=== PATIENT | male | born 1945 | race Caucasian/White ===

== ENCOUNTER 2017-05-05 21:53 | Inpatient (IN) ==
--- NOTE | 2017-05-05 22:23 | Emergency Department Note ---
Disposition Clinical Impression: Elevated troponin, Frequent falls Disposition: Admitted As Inpatient Condition: Undetermined Forms: ED Satisfaction Letter Time of Disposition: 00:02 General Adult HPI - General Chief complaint: ED Fall Stated complaint: Multiple falls Time Seen by Provider: 05/05/17 22:03 Source: patient Mode of arrival: wheelchair Limitations: no limitations Nursing Notes Reviewed: Yes Vital Signs Reviewed: Yes - History of Present Illness HPI Narrative: 72-year-old male with history of psychiatric disorder arrives [facility] emergency department complaining of frequent falls. The patient states that he has had frequent falls over the past 2 weeks. The patient states that he had a fall roughly 5 days ago and struck his face on the ground with a large amount of bruising in his right periorbital region. The patient states that ever since that fall he has felt a little shaky in bed and falling more more frequently. The patient denies any specific complaints other than the facial pain and more frequent falls. The patient denies any chest pain, difficulty breathing, abdominal pain. He denies any LOC with any of these episodes. He denies any other complaints including blacking out, chest pain associated with this. The patient denies tripping or slipping but states that he had no prodromal symptoms associated with it and did not black out. Pain Scale: 0 Consistency: intermittent Improves with: nothing Worsens with: nothing Associated symptoms: Reports: denies other symptoms - Related Data Allergies Allergy/AdvReac Type Severity Reaction Status Date / Time No Known Allergies Allergy Verified 05/05/17 22:00 All systems ED: reviewed and negative except as stated. Constitutional: Denies: fever, chills, weakness, weight change Cardiovascular: Denies: chest pain, palpitations, dyspnea on exertion, edema, syncope Respiratory: Denies: cough, dyspnea, wheezes, hemoptysis, stridor Gastrointestinal: Denies: abdominal pain, nausea, vomiting, diarrhea, constipation, hematemesis, melena, hematochezia Genitourinary: Denies: urgency, dysuria, frequency, hematuria Musculoskeletal: Denies: back pain, neck pain, arthralgia, myalgia Integumentary: Denies: rash, abrasion, lesions Neurological: Reports: other (falls and tremor). Denies: headache, weakness, numbness, paresthesias, confusion, abnormal gait, vertigo Past Medical History - Past Medical History Attestation: Yes The following information was validated with the patient. Source: patient Medical history: Reports: no medical history Surgical history: Reports: non-contributory - Social History Smoking Status: Current every day smoker Smokeless Tobacco Status: No Alcohol use: Reports: none Drug use: Reports: none Physical Exam - General Limitations: no limitations General appearance: alert, in no apparent distress - Eye Eye exam: Present: PERRL, EOMI, periorbital swelling (With associated ecchymosis on the right periorbital region.) - Neck Neck exam: Present: normal inspection, full ROM, trachea midline - Chest Chest inspection: Present: normal inspection, symmetric chest wall rise - Respiratory Respiratory exam: Present: normal lung sounds bilaterally - Cardiovascular Cardiovascular exam: Present: regular rate, normal rhythm, normal heart sounds - Abdominal Exam Abdominal exam: Present: soft, Non-Tender. Absent: tenderness, distention, guarding, rebound, rigidity - Extremities Exam Extremities exam: Present: normal inspection, full ROM. Absent: tenderness, pedal edema - Neurological Exam Neurological exam: Present: alert, oriented X3 - Skin Skin exam: Present: other (small abrasion superior to right brow) Course Vital Signs Temperature 99.8 F H 05/05/17 21:55 Pulse Rate 104 05/05/17 21:55 Respiratory Rate 18 05/05/17 21:55 Blood Pressure 184/96 05/05/17 21:55 O2 Sat by Pulse Oximetry 94 05/05/17 21:55 Temperature 99.8 F H 05/05/17 21:55 Pulse Rate 91 05/05/17 23:19 Respiratory Rate 18 05/05/17 23:19 Blood Pressure 152/89 05/05/17 23:19 O2 Sat by Pulse Oximetry 94 05/05/17 23:19 Oxygen Delivery Oxygen Delivery Room Air Medical Decision Making - MDM Narrative Medical decision making narrative: Patient's workup here in the emergency department demonstrates no acute findings other than an elevated troponin. We have no previous troponin on record. Given the patient's inability to ambulate and unsteadiness on his feet do not feel comfortable sending the patient home at this time. We will admit the patient to the hospital. Accepted by Dr. Bell. - Lab Data Lab results reviewed: Yes I reviewed the patient's lab results. Result diagrams: 05/05/17 22:30 05/05/17 22:30 Lab Results 05/05/17 05/05/17 05/05/17 Range/Units 22:30 22:30 22:30 WBC 6.4 (4.3-11.1) K/mcL RBC 4.98 (4.19-5.50) M/mcL Hgb 15.3 (12.9-16.9) g/dL Hct 47.8 (37.5-50.1) % MCV 96.0 (83.0-100.0) fL MCH 30.7 (28.0-33.3) pg MCHC 32.0 (31.6-35.5) g/dL RDW 13.4 (11.5-14.5) % Plt Count 114 L (140-400) K/mcL MPV 11.8 (9.4-12.4) fL Immature Gran % 0.8 (0-4) % Seg Neutrophils % 63.8 % Lymphocytes % 15.3 % Monocytes % 18.9 % Eosinophils % 0.6 % Basophils % 0.6 % Neutrophils # 4.1 (1.6-8.9) K/mcL Lymphocytes # 1.0 (0.6-4.6) K/mcL Monocytes # 1.2 (0.0-1.3) K/mcL Eosinophils # 0.0 (0.0-0.6) K/mcL Basophils # 0.0 (0.0-0.2) K/mcL Platelet Estimate Slight Decrease L (Normal) Sodium 138 (136-145) mEq/L Potassium 4.9 H (3.5-4.5) mEq/L Chloride 102 (98-109) mEq/L Carbon Dioxide 31 H (19-29) mEq/L BUN 21 (8-26) mg/dL Creatinine 1.07 (0.72-1.25) mg/dL Est GFR ( Amer) > 60 (> 60) Est GFR (Non-Af Amer) > 60 (> 60) BUN/Creatinine Ratio 20 (6-26) Glucose 94 (70-99) mg/dL Calculated Osmolality 289 (280-300) Lactic Acid (0.5-2.2) mmol/L Calcium 9.9 (8.6-10.8) mg/dL Total Bilirubin 0.4 (0.2-1.2) mg/dL AST 20 (5-34) Units/L ALT 7 (0-55) Units/L Alkaline Phosphatase 55 (38-126) Units/L Troponin I 0.04 H* (0-0.03) ng/mL Serum Total Protein 7.7 (6.0-8.3) g/dL Albumin 3.7 (3.5-5.0) g/dL Globulin 4.0 H (2.4-3.5) g/dL Albumin/Globulin Ratio 0.9 L (1.1-2.2) Urine Color (Yellow) Urine Clarity (Clear) Urine pH (5.0-8.0) pH Units Ur Specific [place] (1.010-1.025) Urine Protein (Neg-Trace) mg/dL Urine Glucose (UA) (Normal) mg/dL Urine Ketones (Negative) mg/dL Urine Blood (Negative) Urine Nitrite (Negative) Urine Bilirubin (Negative) Urine Urobilinogen (Normal) mg/dL Ur Leukocyte Esterase (Negative) Ur Culture Indicated? (NO) 05/05/17 05/05/17 Range/Units 22:30 22:50 WBC (4.3-11.1) K/mcL RBC (4.19-5.50) M/mcL Hgb (12.9-16.9) g/dL Hct (37.5-50.1) % MCV (83.0-100.0) fL MCH (28.0-33.3) pg MCHC (31.6-35.5) g/dL RDW (11.5-14.5) % Plt Count (140-400) K/mcL MPV (9.4-12.4) fL Immature Gran % (0-4) % Seg Neutrophils % % Lymphocytes % % Monocytes % % Eosinophils % % Basophils % % Neutrophils # (1.6-8.9) K/mcL Lymphocytes # (0.6-4.6) K/mcL Monocytes # (0.0-1.3) K/mcL Eosinophils # (0.0-0.6) K/mcL Basophils # (0.0-0.2) K/mcL Platelet Estimate (Normal) Sodium (136-145) mEq/L Potassium (3.5-4.5) mEq/L Chloride (98-109) mEq/L Carbon Dioxide (19-29) mEq/L BUN (8-26) mg/dL Creatinine (0.72-1.25) mg/dL Est GFR ( Amer) (> 60) Est GFR (Non-Af Amer) (> 60) BUN/Creatinine Ratio (6-26) Glucose (70-99) mg/dL Calculated Osmolality (280-300) Lactic Acid 1.6 (0.5-2.2) mmol/L Calcium (8.6-10.8) mg/dL Total Bilirubin (0.2-1.2) mg/dL AST (5-34) Units/L ALT (0-55) Units/L Alkaline Phosphatase (38-126) Units/L Troponin I (0-0.03) ng/mL Serum Total Protein (6.0-8.3) g/dL Albumin (3.5-5.0) g/dL Globulin (2.4-3.5) g/dL Albumin/Globulin Ratio (1.1-2.2) Urine Color Yellow (Yellow) Urine Clarity Clear (Clear) Urine pH 7.0 (5.0-8.0) pH Units Ur Specific [place] 1.022 (1.010-1.025) Urine Protein Negative (Neg-Trace) mg/dL Urine Glucose (UA) Normal (Normal) mg/dL Urine Ketones 15 H (Negative) mg/dL Urine Blood Negative (Negative) Urine Nitrite Negative (Negative) Urine Bilirubin Negative (Negative) Urine Urobilinogen Normal (Normal) mg/dL Ur Leukocyte Esterase Negative (Negative) Ur Culture Indicated? NO (NO) - Radiology Data Radiology results reviewed: Yes I reviewed the patient's radiology results. - EKG Data EKG #1 EKG attestation: Yes I reviewed and interpreted this EKG. EKG results narrative: Heart rate 99 bpm. PA interval 139 ms. QTC 372 ms. Normal axis. Normal sinus rhythm. No ST elevation or ST depression noted. No previous EKG.
--- NOTE | 2017-05-05 22:25 | Emergency Department Note ---
START Narrative - START START: I examined this patient and my medical decision-making was reviewed with the INVESTMENT FUND MANAGER/PA/Advanced Practice Nurse/Resident Physician. I agree with the documented findings, disposition and treatment plan as described except to the extent set forth below. ED attending note: Patient seen with emergency medicine resident Dr. Chino. Please see a copy of his note for details of the H&P, evaluation, management and disposition of this patient. We independently had [id number] contact with the patient Briefly: A 72-year-old male brought in wheelchair with the usp director for frequent falls. This is new behavior for patient. He is on medication for behavioral mental health issues. Seems to be some rhythmic shaking. No known history of parkinsonism. No loss of consciousness. He did fall and strike the top of his head and face sustaining sustaining abrasion and soft tissue swelling on his right periorbital and supraorbital ridge. Patient is at baseline mental status. ED workup is underway. Disposition pending.
[2017-05-05 22:35] LABS: Basophils % 0.6 %; Eosinophils % 0.6 %; Hematocrit 47.8 % (37.5-50.1); Hemoglobin 15.3 g/dL (12.9-16.9); Immature Granulocytes % 0.8 % (0-4); Lymphocytes % 15.3 %; Mean Corpuscular Hemoglobin 30.7 pg (28.0-33.3); Mean Platelet Volume 11.8 fL (9.4-12.4); Monocytes # 1.2 K/mcL (0.0-1.3); Monocytes % 18.9 %; Neutrophils # 4.1 K/mcL (1.6-8.9); Platelet Count 114 K/mcL (140-400); Red Blood Count 4.98 M/mcL (4.19-5.50); Red Cell Distribution Width 13.4 % (11.5-14.5); Segmented Neutrophils % 63.8 %
[2017-05-05 22:49] LABS: Alanine Aminotransferase 7 Units/L (0-55); Albumin 3.7 g/dL (3.5-5.0); Albumin/Globulin Ratio 0.9 (1.1-2.2); Alkaline Phosphatase 55 Units/L (38-126); Aspartate Amino Transferase 20 Units/L (5-34); BUN/Creatinine Ratio 20 (6-26); Bilirubin,Total 0.4 mg/dL (0.2-1.2); Blood Urea Nitrogen 21 mg/dL (8-26); Calcium 9.9 mg/dL (8.6-10.8); Carbon Dioxide 31 mEq/L (19-29); Chloride 102 mEq/L (98-109); Glucose 94 mg/dL (70-99); Osmolality,Calculated 289 (280-300); Potassium 4.9 mEq/L (3.5-4.5); Sodium 138 mEq/L (136-145); Total Protein 7.7 g/dL (6.0-8.3); eGFR For African Americans > 60 (> 60); eGFR For Non-African Americans > 60 (> 60)
[2017-05-05 22:59] LABS: Bilirubin,Urine Negative (Negative); Blood,Urine Negative (Negative); Clarity,Urine Clear (Clear); Color,Urine Yellow (Yellow); Glucose,Urine (UA) Normal (Normal); Ketones,Urine 15 mg/dL (Negative); Leukocyte Esterase,Urine Negative (Negative); Nitrite,Urine Negative (Negative); Protein,Urine Negative (Neg-Trace); Specific Gravity,Urine 1.022 (1.010-1.025); Urobilinogen,Urine Normal (Normal)
[2017-05-05 23:29] LABS: Platelet Estimate Slight Decrease (Normal)
[2017-05-06] MEDS ORDERED: Aspirin 325 MG TABLET PO ONE
[2017-05-06] MEDS ORDERED: Ipratropium/Albuterol Neb 3 ML IH ONE (01:10)
--- NOTE | 2017-05-06 01:45 | Internal Med History&Physical ---
Date of Encounter: 05/06/17 Time of Encounter: 01:42 Assessment and Plan (1) Tremors of nervous system Current visit: Yes Status: Acute Suspect Parkinson's disease / parkinsonism (pt has psychiatric hx, but list of medications not available at this time). We will request neurology consultation for further evaluation and advice (2) Elevated troponin Current visit: Yes Status: Acute Patient denies chest pain. No obvious EKG changes. We will trend troponins. Will request echocardiogram. Consider cardiac consultation. (3) Frequent falls Current visit: Yes Status: Acute CT head, UA and CXR negative. I suspect untreated parkinson's disease/ parkinsonism is possible cause. Will request neurologic consultation and physical therapy evaluation (4) COPD (chronic obstructive pulmonary disease) Current visit: Yes Status: Chronic Treat with Bronchodilators Qualifiers: COPD type: unspecified COPD Qualified Code(s): J44.9 - Chronic obstructive pulmonary disease, unspecified (5) Nicotine dependence Current visit: Yes Status: Chronic He does not want to quit. Offer nicotine patch Qualifiers: Nicotine product type: cigarettes Substance use status: unspecified nicotine-induced disorder Qualified Code(s): F17.219 - Nicotine dependence, cigarettes, with unspecified nicotine-induced disorders (6) DVT prophylaxis Current visit: Yes Status: Acute [facility] Internal Medicine - H&P: HPI Chief complaint: Unable to walk Admitted From: Emergency Dept Plans for Post Hospital Care: Home History of present illness: Mr. Alejandra is a 72 year old male, Who is a resident of a residential for about 2.5 years, current smoker. He reports that he is unable to walk well for a few months and is getting worse. He reports difficulty with balance while walking. He apparently had frequent falls over the past 2 weeks, last fall about 2 days ago and had injury to the right eye. Psychiatrist at the residential apparently recommended evaluation in the hospital. Pt evaluated in the ER and was noted to have troponin of 0.04. He is admitted to the hospitalist service for further management. He denies chest pain, shortness of breath, cough, expectoration, fever, chills, nausea, vomiting, abdominal pain, dysuria, hematuria, changes in bowel habits. H /O Urinary incontinence. H/o shaking for the some time. He denies headache, weakness of the limbs. Past Med Surg Social Fam HX - Past Medical History Medical history: no medical history Psychiatric history: anxiety, depression - Past Surgical History Surgical History: non-contributory - Social History Smoking Status: Current every day smoker Smokeless Tobacco Status: No Alcohol use: none Drug use: none - Additional Family History Additional family history: Family history reviewed and noncontributory to current admission Internal Medicine - H&P: Meds Allergies No Known Allergies Allergy (Verified 05/05/17 22:00) All Systems PM: A 10-system review of systems was performed and is negative for pertinent findings except as documented above in the HPI. - Constitutional Vitals: Temp Pulse Resp BP Pulse Ox 99.1 F 88 18 155/88 93 05/06/17 00:48 05/06/17 00:48 05/06/17 00:48 05/06/17 00:48 05/06/17 00:48 Exam: General: Not in acute distress at the time of my evaluation HEENT: Oral mucosa is moist. Right periorbital hematoma. Neck: No obvious neck swellings Lungs: Bilateral wheeze present Cardiac: Regular rate and rhythm. No significant murmurs Abdomen: Soft, non tender. Bowel sounds present Genitourinary: No ornelas catheter Neurological: Alert and oriented. Resting tremors present; bradykinesia present. No localizing weakness Psych: Not aggressive or agitated Extremities: no significant leg edema Skin: No generalized rash Internal Med - H&P Results - Labs CBC & Chem 7: 05/05/17 22:30 05/05/17 22:30 Labs: Urinalysis is negative for urinary tract infection - EKG Data -: EKG Interpreted by Myself EKG shows normal: sinus rhythm Rate: normal - Impressions ITS Impressions Chest X-Ray 05/05/17 22:17 IMPRESSION: Negative portable study. D/ / Perla Tamayo Cha, MD / Perla Tamayo Cha, MD Interpreting Provider: Perla Tamayo Cha, MD Head CT 05/05/17 22:17 IMPRESSION: No acute intracranial hemorrhage or mass effect. D/ / Nelson Patten MD / Nelson Patten MD Interpreting Provider: Nelson Patten MD Face CT 05/05/17 22:18 IMPRESSION: No acute traumatic injury of the facial bones. D/ / Perla Tamayo Cha, MD / Perla Tamayo Cha, MD Interpreting Provider: Perla Tamayo Cha, MD
[2017-05-06] MEDS ORDERED: Naloxone 0.4 MG/ML INJ IVP PRN (02:23)
[2017-05-06] MEDS ORDERED: Ipratropium/Albuterol Neb 3 ML IH PRN (02:26)
[2017-05-06] MEDS: *HR* Enoxaparin 40 MG/0.4 ML SYRINGE SQ SCH (06:20)
[2017-05-06 06:39] LABS: BUN/Creatinine Ratio 22 (6-26); Blood Urea Nitrogen 23 mg/dL (8-26); Calcium 8.8 mg/dL (8.6-10.8); Carbon Dioxide 23 mEq/L (19-29); Chloride 107 mEq/L (98-109); Chol/HDL Ratio 4.4 (0-4.9); Cholesterol 195 mg/dL (< 200); Glucose 115 mg/dL (70-99); HDL Cholesterol 44 mg/dL (40-59); LDL Cholesterol,Calculated 126 mg/dL (0-99); Magnesium 1.8 mg/dL (1.6-2.6); Osmolality,Calculated 291 (280-300); Potassium 4.2 mEq/L (3.5-4.5); Sodium 138 mEq/L (136-145); Triglycerides 124 mg/dL (< 150); eGFR For African Americans > 60 (> 60); eGFR For Non-African Americans > 60 (> 60)
[2017-05-06 06:52] LABS: Thyroid Stimulating Hormone 0.877 mcIU/mL (0.350-4.840)
[2017-05-06] MEDS: Divalproex (12 HR) 500 MG TABLET PO SCH ×2 (09:01→22:02)
[2017-05-06] MEDS: Gabapentin 100 MG CAPSULE PO SCH ×3 (09:02→22:02)
--- NOTE | 2017-05-06 12:17 | Event Note ---
Date of Encounter: 05/06/17 Time of Encounter: 09:30 Patient seen and examined. On examination, patient sitting upright in bed watching television. Patient stating he has had chest pain but is unable to quantify or localize the pain. He thinks that it has been present for months. He is a remarkably poor historian. Chest x-ray negative. Head CT negative. Face CT negative. Troponins adynamic and stable, low suspicion for ACS. Urinalysis negative. [place] levels normal. Neurology on board, appreciate their recommendations. PT has recommended ECF placement. Echocardiogram unremarkable with ejection fraction of 60-65%. During my interaction with him, patient was able to answer most questions but it is unclear at this time whether the patient has capacity to make decisions based upon his medical care. We will speak further with his fpc workers. According to staff report , patient has had balance issues and has started to walk while bent over forward for the past several months. He has refused to seek medical care. He is also refused ECF placement in the past, we will discuss further with the patient his options although we could potentially be heading towards possibly appointing a guardian- more conversations and evaluations to partake. ITS Impressions Chest X-Ray 05/05/17 22:17 IMPRESSION: Negative portable study. D/ / Perla Tamayo Cha, MD / Perla Tamayo Cha, MD Interpreting Provider: Perla Tamayo Cha, MD Head CT 05/05/17 22:17 IMPRESSION: No acute intracranial hemorrhage or mass effect. D/ / Nelson Patten MD / Nelson Patten MD Interpreting Provider: Nelson Patten MD Face CT 05/05/17 22:18 IMPRESSION: No acute traumatic injury of the facial bones. D/ / Perla Tamayo Cha, MD / Perla Tamayo Cha, MD Interpreting Provider: Perla Tamayo Cha, MD Echocardiogram impressions: Technically suboptimal due to poor echocardiographic windows. Incomplete study. Patient refused to complete the exam. LVEF 60-65%. Normal chamber size, wall thickness and function in the views obtained. Diastolic function was not assessed. Right ventricle was not well assessed. Unable to estimate RVSP due to lack of TR jet. No obvious significant valve dysfunction in the views obtained.
--- NOTE | 2017-05-06 13:15 | Neurology - Consult Note ---
Date of Encounter: 05/06/17 Time of Encounter: 13:07 Assessment and Plan (1) Frequent falls Current Visit: Yes Status: Acute This is a 72 year old male, who has been experiencing subacute onset of generalized weakness and frequent falls. Patient is a poor historian and it could be likely that the weakness been going on more than one week. Patient looks emaciated with a picture of failure to thrive. Weakness is quite diffuse and associated with complaints of pain. Mood appears significantly depressed. Neurologically, i found no typical features of Parkinson's disease, in particular there is no rest tremors, no muscle rigidity. Patient is mentally slow to react so movements are somewhat slow. There is no evidence of motor neuron disease since there is no brisk DTRs, no muscle fasciculations, no tongue atrophy or diffuse muscle atrophy. He is not myelopathic. At the same time he has his DTRs preserved therefore no signs of Guillain barre or CIDP. Overall speaking, picture of weakness appears to be peripheral, diffuse, may be complicated by failure to thrive and less likely muscular abnormality such as myositis, myopathy, or Lambert-Eaton syndrome considering weight loss and failure to thrive. There is also psychiatric inertia involve. Recommendation would be to: 1. Check CK, LDH and ESR to make sure there is no evidence of myositis, polymyalgia reumatica. 2. psychiatry evaluation may be beneficial. 3. Supportive/social placement care are apparently needed. History of Present Illness Chief complaint: falls HPI: Mr. Alejandra is a 72 year old male with PMH significant for COPD, depression who was transferred from a skilled nursing due to complaints of frequent falls. Patient is a poor historian and appears indifferent regarding his medical condition. He tells me that he developed weakness about one week ago without any specific provoking factors. He feels that he is weak everywhere and he also has diffuse sore muscle everywhere. Denies difficulty swallowing, choking. Does eat that much at skilled nursing. He apparently had a fall and hit his face with 'racoon eye' to the right side. Denies loss of consciousness with the fall. When asked how he fell, answer is 'do not know' CT of head shows no acute intracranial abnormality. Laboratory studies, CBC, metabolic panel showed no significant abnormality that can explain his symptoms. Past Med Surg Social Fam HX - Past Medical History Medical history: no medical history Psychiatric history: anxiety, depression - Past Surgical History Surgical History: non-contributory - Social History Smoking Status: Current every day smoker Smokeless Tobacco Status: No Alcohol use: none Drug use: none Medications and Allergies Albuterol Inhaler 05/06/17 [History] Benztropine Mesylate 0.5 mg PO QAM 05/06/17 [History] Benztropine Mesylate [Benztropine Mesylate] 1 mg PO HS 05/06/17 [History] Divalproex (24 HR) [Depakote ER (24 HR)] 500 mg PO BID 05/06/17 [History] Gabapentin [Neurontin] 200 mg PO TID 05/06/17 [History] Levothyroxine [Synthroid] 100 mcg PO DAILY 05/06/17 [History] [place] Carbonate [[place] Carbonate] 600 mg PO HS 05/06/17 [History] Allergies nicotine patches Allergy (Uncoded 05/06/17 03:04) Rash All Systems: A 10-system review of systems was performed and is negative for pertinent findings except as documented above in the HPI. Physical Examination - Vital Signs Vital Signs: Initial Vital Signs Temp Pulse Resp BP Pulse Ox 99.8 F H 104 18 184/96 94 05/05/17 21:55 05/05/17 21:55 05/05/17 21:55 05/05/17 21:55 05/05/17 21:55 - Constitutional General appearance: chronically ill - Neurologic Sensorimotor examination: other (Grossly intact) Detailed motor examination: grossly full strength in all extremities (Patient displays some giveaway weakness diffusely. Hand emergency crew supervisor appears equal and at least 4+/5. Able to lift legs off the bed and strenght 4=/5 bilaterally. No focal musle atrophy. No muscle fasciculations) Motor examination - right side: 4/5: deltoids, biceps, triceps, wrist flexion, wrist extension, electrical systems designer, hip flexors, tibialis Anterior, quadriceps, toe extension (EHL), plantarflexion Motor examination - left side: 4/5: deltoids, biceps, triceps, wrist flexion, wrist extension, hip flexors, electrical systems designer, quadriceps, tibialis Anterior, toe extension (EHL), plantarflexion Detailed sensory examination: other (Grossly intact) Reflexes: Biceps: 2+, Triceps: 2+, Brachioradialis: 2+, Patella: 2+, Achilles: 2 + Mental Status Examination: awake (Patient is indifferent but able to give simple answers. ), alert, oriented to person, oriented to place, oriented to time, follows commands appropriately, answers questions appropriately, no agnosia, no aphasia, no aproxia Cranial nerve examination: PERRL, EOMI, visual mckeon intact, corneal reflexes brisk symmetrically, sensory to face intact, mastication intact, no facial asymmetry is present, no dysarthria, hearing is intact symmetrically, soft palate elevates bilaterally upon phonation, gag reflex intact, flexes SCM and trapezius muscles symmetrically with full power, tongue protrudes midline, no atrophy or facial fasiculations present Fundoscopic: papilledema: Bilateral Results - Laboratory Findings CBC and BMP: 05/05/17 22:30 05/06/17 05:31 Abnormal lab findings: Abnormal lab results Plt Count 114 K/mcL (140-400) L 05/05/17 22:30 Platelet Estimate Slight Decrease (Normal) L 05/05/17 22:30 Glucose 115 mg/dL (70-99) H 05/06/17 05:31 Troponin I 0.04 ng/mL (0-0.03) H* 05/06/17 10:16 Globulin 4.0 g/dL (2.4-3.5) H 05/05/17 22:30 Albumin/Globulin Ratio 0.9 (1.1-2.2) L 05/05/17 22:30 LDL Cholesterol, Calc 126 mg/dL (0-99) H 05/06/17 05:31 Urine Ketones 15 mg/dL (Negative) H 05/05/17 22:50 Consult Discharge Plan - Plan [facility]errals: [facility]Primary Care Provider[facility] -
[2017-05-06] MEDS ORDERED: *HR* HYDROcodone/Acet 5/325 mg TABLET PO PRN (14:11)
[2017-05-06] MEDS ORDERED: Ondansetron 4 MG/2 ML VIAL IVP PRN (14:12)
[2017-05-06 14:19] LABS: C-Reactive Protein 12 mg/L (Less than 5); Creatine Kinase 266 Units/L (30-200); Lactate Dehydrogenase 173 Units/L (159-327)
[2017-05-06] MEDS: Acetaminophen 325 MG TABLET PO PRN (14:24)
[2017-05-06] MEDS: 0.9 % Sodium Chloride 1,000 ML IVC SCH (16:39)
[2017-05-06] MEDS: Lithium Carbonate 300 MG CAPSULE PO SCH (22:02)
[2017-05-07] MEDS: 0.9 % Sodium Chloride 1,000 ML IVC SCH (05:42)
[2017-05-07] MEDS: *HR* Enoxaparin 40 MG/0.4 ML SYRINGE SQ SCH (05:43)
[2017-05-07] MEDS: Gabapentin 100 MG CAPSULE PO SCH ×3 (07:58→21:27)
[2017-05-07] MEDS: Divalproex (12 HR) 500 MG TABLET PO SCH ×2 (07:59→21:27)
[2017-05-07] MEDS ORDERED: Furosemide 40 MG/4 ML VIAL IVP STA (11:45)
--- NOTE | 2017-05-07 11:49 | Internal Med Progress Note ---
Date of Encounter: 05/07/17 Time of Encounter: 10:30 - Assessment and plan (1) Frequent falls Current Visit: Yes Status: Acute Assessment and plan: Unclear causation, likely multifactorial. Currently, patient has moderate respiratory distress. He also appears to have mental health history and while we do not completely no wit his baseline is, his nurse spoke to his caregiver at the alf today and the caregiver stated that the patient is typically able to handle intelligent conversations. It is unclear at this time whether the patient is mentally/physically unable to answer questions and communicate or if he is choosing not to do so, we will continue to investigate. Chest x- ray negative. Head CT negative. Face CT negative for acute processes. Urinalysis negative. ABGs are pending. Troponins adynamic and stable, low suspicion for ACS. [place] levels normal. Neurology on board, suspect patient has failure to thrive. PT has recommended ECF placement-we will address this with the patient once he is more stable. Echocardiogram unremarkable with ejection fraction of 60-65%. During my interaction with him, patient was again able to answer most questions but at other times, his speech was garbled and unintelligible. Will address respiratory distress and conitnue to monitor his mentation. According to alf staff report, patient has had balance issues and has started to walk while bent over forward for the past several months. He has refused to seek medical care and psychiatry is onboard for possible capacity issues but we will need to clear up acute medical issues before addressing his capacity. He has also refused ECF placement in the past, we will discuss further with the patient his options although we could potentially be heading towards possibly appointing a guardian- more conversations and evaluations to partake. ITS Impressions Chest X-Ray 05/05/17 22:17 IMPRESSION: Negative portable study. D/ / Perla Tamayo Cha, MD / Perla Tamayo Cha, MD Interpreting Provider: Perla Tamayo Cha, MD Head CT 05/05/17 22:17 IMPRESSION: No acute intracranial hemorrhage or mass effect. D/ / Nelson Patten MD / Nelson Patten MD Interpreting Provider: Nelson Patten MD Face CT 05/05/17 22:18 IMPRESSION: No acute traumatic injury of the facial bones. D/ / Perla Tamayo Cha, MD / Perla Tamayo Cha, MD Interpreting Provider: Perla Tamayo Cha, MD Echocardiogram impressions: Technically suboptimal due to poor echocardiographic windows. Incomplete study. Patient refused to complete the exam. LVEF 60-65%. Normal chamber size, wall thickness and function in the views obtained. Diastolic function was not assessed. Right ventricle was not well assessed. Unable to estimate RVSP due to lack of TR jet. No obvious significant valve dysfunction in the views obtained. (2) Acute encephalopathy Current Visit: Yes Status: Suspected Assessment and plan: Suspected although unsure on the etiology. Patient clearly has moderate respiratory distress at this time. He is able to answer most questions and other answers are garbled and unintelligible. It is unclear whether or not the patient is experiencing confusion or if he is choosing not to answer questions as he prefers not to interact with healthcare according to his alf workers. See prior note for frequent falls (3) Acute respiratory failure Current Visit: Yes Status: Acute Assessment and plan: Patient was on nasal cannula this morning he remained dyspneic on examination, we will trial BiPAP. IV fluids have been stopped and the patient was given a one-time dose of IV Lasix. No history of heart failure although he did appear fluid overloaded on examination with coarse wheezing throughout and audible wheezing present. We will monitor closely. ABGs pending. Of note, when I examined him yesterday, he has mild audible wheezing consistent with upper airway congestion as his lungs were clear. His nurse also stated that this am around 7am that he was not nearly as dyspneic as well. Will check abg's- consider more imaging for possible aspiration? Patient does have a moist, wet, unproductive cough. (4) Discharge planning issues Current Visit: Yes Status: Acute Assessment and plan: Patient is a member of a alf. Per report, he has had so many falls recently, it does not sit appear as if the alf will be willing to take him back unless he goes to rehabilitation first. At this point, I am unable to determine whether the patient has the capacity to make that decision based upon his healthcare. Patient is not currently stable to be discharged, will readdress this issue once the patient is more stable. (5) Hypertension Current Visit: Yes Status: Acute Assessment and plan: Hypertension is not listed in the patient's history and he is not on any antihypertensive medications at home. Blood pressure uncontrolled, will initiate amlodipine with lopressor prn IV (6) Elevated troponin Current Visit: Yes Status: Acute Assessment and plan: adynamic and stable; low suspicion for ACS, but will recheck another level today (7) Tremors of nervous system Current Visit: Yes Status: Chronic Assessment and plan: Unclear causation. Neurology was on board and have suggested possible failure to thrive with Parkinson's and other movement disorders less likely. Psychiatry also on board. (8) COPD (chronic obstructive pulmonary disease) Current Visit: Yes Status: Chronic Assessment and plan: Currently is experiencing moderate respiratory distress, we will treat for possible fluid overload and COPD exacerbation. Qualifiers: COPD type: unspecified COPD Qualified Code(s): J44.9 - Chronic obstructive pulmonary disease, unspecified (9) Nicotine dependence Current Visit: Yes Status: Chronic Assessment and plan: Patient declines counseling, declines nicotine patch at this time Qualifiers: Nicotine product type: cigarettes Substance use status: unspecified nicotine-induced disorder Qualified Code(s): F17.219 - Nicotine dependence, cigarettes, with unspecified nicotine-induced disorders (10) DVT prophylaxis Current Visit: Yes Status: Acute Assessment and plan: Subcutaneous Lovenox - Subjective Interval history: Patient seen and examined. On examination, patient sitting in high Campbell's. Patient is alert and interactive though his speech is unintelligible at times. He has increased work of breathing today when compared from yesterday yet when asked, he denies shortness of breath above his norm. He also denies pain at this time but again is difficult to understand his answers to questions. - Constitutional Vitals: Temp Pulse Resp BP Pulse Ox 99.2 F 89 14 161/95 92 05/07/17 11:18 05/07/17 11:18 05/07/17 11:18 05/07/17 11:18 05/07/17 11:18 General appearance: Present: disheveled, A&O X 2, severe distress (moderate), answers questions appropriately (sometimes- but sometimes unintelligible) - Head Head exam: Present: atraumatic, normocephalic - Eye Eye exam: Present: PERRL, conjuntiva pink, sclera anicteric Pupils: Present: PERRL - Neck Neck exam general surgery: Present: supple, trachea midline. Absent: lymphadenopathy - Respiratory Respiratory exam: Present: accessory muscle use, decreased breath sounds, prolonged expiratory phase, rales, respiratory distress, wheezes, tachypnea. Absent: CTAB, rhonchi - Cardiovascular Cardiovascular exam: Present: RRR, +S1, +S2. Absent: diastolic murmur, gallop, rubs, systolic murmur - GI/Abdominal GI/Abdominal exam: Present: distended, normal bowel sounds, soft, no peritoneal signs. Absent: tenderness - Extremities Exam Extremities exam: Present: warm, radial pulses palpable and symetrical. Absent : calf tenderness, cyanotic, pedal edema - Neurological Exam Neurological exam: Present: alert, altered, CN II-XII intact, no focal deficits , strengths equal and symetr throughout, speech deficit. Absent: pronater drift , facial droop - Expanded Neurological Exam Neurological exam expanded: Present: protecting the airway Patient oriented to: Present: person, place. Absent: time Speech: Present: garbled Cranial Nerves: EOM's intact PM: Normal Neuro motor strength exam: LUE: 5, RUE: 5, LLE: 5, RLE: 5 Coma Scale Eye Opening: Spontaneous Coma Scale Motor Response: Obeys Commands Coma Scale Verbal Response: Confused (unintelligible at times but answers some questions easily) Coma Scale Total: 14 - Skin Skin exam: Present: dry, intact, pallor, warm Internal Medicine: Result - Labs CBC & Chem 7: 05/05/17 22:30 05/06/17 05:31 Consult Discharge Plan - Plan [facility]: [facility] [Primary Care Provider] -
[2017-05-07] MEDS ORDERED: *HR* Metoprolol 5 MG/5 ML VIAL IVP PRN (11:56)
--- NOTE | 2017-05-07 12:08 | Consult Note ---
Date of Encounter: 05/07/17 Time of Encounter: 11:40 Assessment & Recommendation (1) Delirium Current visit: Yes Status: Acute Assessment & Recommendation: Unsure of what patient's underlying psychiatric issues are based on medications. Would recommend obtaining records [facility] to gather more data previous psychiatric diagnoses. We will continue to monitor this patient and try to determine if there is a psychiatric component to his recent mental status change. Would continue psych meds the same for now. Labs reviewed and lithium levels within normal limits. History of Present Illness Patient: new to practice Requesting Physician: Iza Newton Reason for consult: confusion History of present illness: Mr. Alejandra is a 72 year old male who presented from the [facility] with increasing confusion and falls. He has been admitted to the medical floor for evaluation and treatment. Patient has apparently been falling more recently and health has been declining over the past few months. Patient has been difficult to understand and having difficulty communicating with staff secondary to shortness of breath and some intermittent confusion. Patient was able to verbalize that he is not [facility] but was unable to talk to this provider about why he is here or what he is medical issues were. He is on multiple psychiatric medications but was unable to verbalize what diagnosis he has. He does not appear to be responding to internal stimuli and he was having some difficulty breathing when I arrived to do the assessment. Patient is his own decision maker. Staff did contact Cornell Perez who is his caregiver at the [facility] ([phone]). Per caregiver, patient is normally able to make his own decisions and is very alert and oriented. This current state appears to be an acute change in his mental status. CC: Iza Newton Past Med Surg Social Fam HX - Past Medical History Medical history: no medical history - Past Psychiatric History Past psychiatric history details: Unknown at this time. We will obtain records from [facility]. Family psychiatric history: Unknown - Past Surgical History Surgical History: non-contributory - Social History Smoking Status: Current every day smoker Smokeless Tobacco Status: No Alcohol use: none Drug use: none Current living situation: [facility] Activity Level: Independent ambulation Medications & Allergies Albuterol Sulfate [Proair Hfa] 1 - 2 puff IH Q6H PRN 05/06/17 [History] Benztropine Mesylate 0.5 mg PO QAM 05/06/17 [History] Benztropine Mesylate [Benztropine Mesylate] 1 mg PO HS 05/06/17 [History] Divalproex (24 HR) [Depakote ER (24 HR)] 500 mg PO BID 05/06/17 [History] Gabapentin [Neurontin] 200 mg PO TID 05/06/17 [History] Levothyroxine [Synthroid] 100 mcg PO DAILY 05/06/17 [History] [place] Carbonate [[place] Carbonate] 600 mg PO HS 05/06/17 [History] Tiotropium [Spiriva] 18 mcg IH DAILY 05/06/17 [History] Allergies nicotine patches Allergy (Uncoded 05/06/17 03:04) Rash Review of Systems ROS limited: due to patient condition Respiratory: Reports: dyspnea, wheezes Mental Status Exam Patient orientation: Yes Person, No Time, Yes Place, No Circumstance Level of alertness: Alert Patient appearance: Unkempt Behavior: cooperative, distractible Psychomotor activity: Normal Eye contact: Fleeting Contact Mood description: Euthymic/stable Affect description: anxious Speech pattern: Limited Speech volume: Soft/Quiet Thought process: [place] Thought content: No Suicidal ideation, No Homicidal ideation Perceptual disturbances: No Reacting to internal stimuli Attention span: Unable to Focus Patient reliability: Not Reliable Historian Intelligence estimate: Below Average Judgment: Limited Insight: Minimal Results - Vital Signs Vital signs: Temp Pulse Resp BP Pulse Ox 99.2 F 89 14 161/95 92 05/07/17 11:18 05/07/17 11:18 05/07/17 11:18 05/07/17 11:18 05/07/17 11:18 - Labs Labs: Laboratory Last Values WBC 6.4 K/mcL (4.3-11.1) 05/05/17 22:30 RBC 4.98 M/mcL (4.19-5.50) 05/05/17 22:30 Hgb 15.3 g/dL (12.9-16.9) 05/05/17 22:30 Hct 47.8 % (37.5-50.1) 05/05/17 22:30 MCV 96.0 fL (83.0-100.0) 05/05/17 22:30 MCH 30.7 pg (28.0-33.3) 05/05/17 22:30 MCHC 32.0 g/dL (31.6-35.5) 05/05/17 22:30 RDW 13.4 % (11.5-14.5) 05/05/17 22:30 Plt Count 114 K/mcL (140-400) L 05/05/17 22:30 MPV 11.8 fL (9.4-12.4) 05/05/17 22:30 Immature Gran % 0.8 % (0-4) 05/05/17 22:30 Seg Neutrophils % 63.8 % 05/05/17 22:30 Lymphocytes % 15.3 % 05/05/17 22:30 Monocytes % 18.9 % 05/05/17 22:30 Eosinophils % 0.6 % 05/05/17 22: Basophils % 0.6 % 05/05/17 22:30 Neutrophils # 4.1 K/mcL (1.6-8.9) 05/05/17 22:30 Lymphocytes # 1.0 K/mcL (0.6-4.6) 05/05/17 22:30 Monocytes # 1.2 K/mcL (0.0-1.3) 05/05/17 22:30 Eosinophils # 0.0 K/mcL (0.0-0.6) 05/05/17 22:30 Basophils # 0.0 K/mcL (0.0-0.2) 05/05/17 22:30 Platelet Estimate Slight Decrease (Normal) L 05/05/17 22:30 ESR 40 mm/hr (0-10) H 05/06/17 13:32 Sodium 138 mEq/L (136-145) 05/06/17 05:31 Potassium 4.2 mEq/L (3.5-4.5) 05/06/17 05:31 Chloride 107 mEq/L (98-109) 05/06/17 05:31 Carbon Dioxide 23 mEq/L (19-29) 05/06/17 05:31 BUN 23 mg/dL (8-26) 05/06/17 05:31 Creatinine 1.05 mg/dL (0.72-1.25) 05/06/17 05:31 Est GFR ( Amer) > 60 (> 60) 05/06/17 05:31 Est GFR (Non-Af Amer) > 60 (> 60) 05/06/17 05:31 BUN/Creatinine Ratio 22 (6-26) 05/06/17 05:31 Glucose 115 mg/dL (70-99) H 05/06/17 05:31 Calculated Osmolality 291 (280-300) 05/06/17 05:31 Lactic Acid 1.6 mmol/L (0.5-2.2) 05/05/17 22:30 Calcium 8.8 mg/dL (8.6-10.8) 05/06/17 05:31 Magnesium 1.8 mg/dL (1.6-2.6) 05/06/17 05:31 Total Bilirubin 0.4 mg/dL (0.2-1.2) 05/05/17 22:30 AST 20 Units/L (5-34) 05/05/17 22:30 ALT 7 Units/L (0-55) 05/05/17 22:30 Alkaline Phosphatase 55 Units/L (38-126) 05/05/17 22:30 Lactate Dehydrogenase 173 Units/L (159-327) 05/06/17 13:32 Creatine Kinase 266 Units/L (30-200) H 05/06/17 13:32 Troponin I 0.04 ng/mL (0-0.03) H* 05/06/17 10:16 C-Reactive Protein 12 mg/L (Less than 5) H 05/06/17 13:32 Serum Total Protein 7.7 g/dL (6.0-8.3) 05/05/17 22:30 Albumin 3.7 g/dL (3.5-5.0) 05/05/17 22:30 Globulin 4.0 g/dL (2.4-3.5) H 05/05/17 22:30 Albumin/Globulin Ratio 0.9 (1.1-2.2) L 05/05/17 22:30 Triglycerides 124 mg/dL (< 150) 05/06/17 05:31 Cholesterol 195 mg/dL (< 200) 05/06/17 05:31 LDL Cholesterol, Calc 126 mg/dL (0-99) H 05/06/17 05:31 VLDL Cholesterol, Calc 25 mg/dL (< 31) 05/06/17 05:31 HDL Cholesterol 44 mg/dL (40-59) 05/06/17 05:31 Cholesterol/HDL Ratio 4.4 (0-4.9) 05/06/17 05:31 TSH 0.877 mcIU/mL (0.350-4.840) 05/06/17 05:31 Urine Color Yellow (Yellow) 05/05/17 22:50 Urine Clarity Clear (Clear) 05/05/17 22:50 Urine pH 7.0 pH Units (5.0-8.0) 05/05/17 22:50 Ur Specific [place] 1.022 (1.010-1.025) 05/05/17 22:50 Urine Protein Negative mg/dL (Neg-Trace) 05/05/17 22:50 Urine Glucose (UA) Normal mg/dL (Normal) 05/05/17 22:50 Urine Ketones 15 mg/dL (Negative) H 05/05/17 22:50 Urine Blood Negative (Negative) 05/05/17 22:50 Urine Nitrite Negative (Negative) 05/05/17 22:50 Urine Bilirubin Negative (Negative) 05/05/17 22:50 Urine Urobilinogen Normal mg/dL (Normal) 05/05/17 22:50 Ur Leukocyte Esterase Negative (Negative) 05/05/17 22:50 Ur Culture Indicated? NO (NO) 05/05/17 22:50 [place] 0.6 mEq/L (0.6-1.2) 05/06/17 05:31 Consult Discharge Plan - Plan [facility]errals: [facility] [Primary Care Provider] -
[2017-05-07] MEDS: Ipratropium/Albuterol Neb 3 ML IH SCH ×4 (12:25→23:56)
[2017-05-07 12:33] LABS: ABG Base Excess 1.9 mEq/L (-2.0 to 3.0); ABG HCO3 26.6 mEQ/L (21-27); ABG Oxygen Saturation 96 % (95-98); ABG PCO2 41 mmHg (35-45); ABG PH 7.42 pH Units (7.32-7.45); ABG PO2 79 mmHg (85-104); ABG TCO2 27.9 mEq/L (20-26)
[2017-05-07 12:34] LABS: Blood Gas FiO2 28 %
[2017-05-07] MEDS: amLODIPine 5 MG TABLET PO SCH (13:15)
[2017-05-07] MEDS ORDERED: Vancomycin 1,250 MG in D5% in Water 250 ML IVPB SCH ×2 (16:00)
--- NOTE | 2017-05-07 16:09 | Event Note ---
Date of Encounter: 05/07/17 Time of Encounter: 15:45 Patient seen and reexamined. On reexamination, pt is sitting in high Campbell's and tolerating BiPap well. His work of breathing and upper airway congestion is much improved. He just developed a fever of unknown etiology although I suspect possible aspiration pneumonia given that he has had copious amounts of nonproductive phlegm. Tylenol for fever, blood cultures ordered and the patient started on Vanc and Zosyn. Chest CT ordered. His ABG's are unremarkable. Regarding his mentation, he can still answer simple yes or no questions, but his speech is soft and unintelligible on longer answers. It does appear as if the patient is lucid and oriented- will give him a pen and clipboard and will continue to monitor his mentation. Will check lactic acid levels though he does not appear to be septic at this time. HR in the 70s ad BP is stable/slightly hypertensive.
[2017-05-07] MEDS: Acetaminophen 325 MG TABLET PO PRN (16:21)
[2017-05-07 16:43] LABS: BUN/Creatinine Ratio 21 (6-26); Blood Urea Nitrogen 19 mg/dL (8-26); eGFR For African Americans > 60 (> 60); eGFR For Non-African Americans > 60 (> 60)
[2017-05-07] MEDS: Piperacillin/Tazobactam 3.375 GM in D5% in Water (Mini-Bag+) 100 ML IVPB SCH ×2 (16:45→23:47)
[2017-05-07 18:08] LABS: ABG Base Excess 3.5 mEq/L (-2.0 to 3.0); ABG HCO3 27.8 mEQ/L (21-27); ABG Oxygen Saturation 97 % (95-98); ABG PCO2 40 mmHg (35-45); ABG PH 7.45 pH Units (7.32-7.45); ABG PO2 83 mmHg (85-104)
[2017-05-07 18:09] LABS: Blood Gas FiO2 32 %
--- NOTE | 2017-05-07 18:43 | Event Note ---
Date of Encounter: 05/08/17 Time of Encounter: 18:41 72/M senior care resident. Admitted for multiple falls. asked to see for new onset of respiratory distress. Alert oriented x3 on BiPAP Appears drowsy but awake, painful stimuli Noted that patient was initially tachypneic and then was placed on BiPAP. had crepitations in the right upper lobe on auscultation. Assessment: Possible aspiration Plan: CT scan of the chest stat We will start broad-spectrum IV antibiotics. Transferred to stepdown unit. I have informed in person to 19 regarding this patient. This note was generated on 05/07/2017 and due to some emergency I could not complete on the same day. This note was completed on 05/08/2017 This patient's primary provider LINEN KEEPER and she has date for her services. This note should not be billed.
[2017-05-07] MEDS: Lithium Carbonate 300 MG CAPSULE PO SCH (21:53)
[2017-05-08] MEDS: Ipratropium/Albuterol Neb 3 ML IH SCH ×5 (04:00→20:36)
[2017-05-08] MEDS: Vancomycin 1,250 MG in D5% in Water 250 ML IVPB SCH ×2 (04:07→15:10)
[2017-05-08 04:20] LABS: Immature Granulocytes % 0.5 % (0-4)
[2017-05-08 04:22] LABS: Basophils % 0.2 %; Hematocrit 44.1 % (37.5-50.1); Hemoglobin 14.5 g/dL (12.9-16.9); Immature Platelets 12.9 % (1.1-6.1); Lymphocytes # 1.2 K/mcL (0.6-4.6); Lymphocytes % 14.8 %; Mean Corpuscular HGB Conc 32.9 g/dL (31.6-35.5); Mean Corpuscular Hemoglobin 30.6 pg (28.0-33.3); Mean Platelet Volume 11.7 fL (9.4-12.4); Monocytes # 1.2 K/mcL (0.0-1.3); Monocytes % 15.1 %; Neutrophils # 5.7 K/mcL (1.6-8.9); Red Blood Count 4.74 M/mcL (4.19-5.50); Red Cell Distribution Width 13.6 % (11.5-14.5); Segmented Neutrophils % 69.4 %
[2017-05-08 04:40] LABS: BUN/Creatinine Ratio 25 (6-26); Blood Urea Nitrogen 20 mg/dL (8-26); Calcium 8.3 mg/dL (8.6-10.8); Carbon Dioxide 28 mEq/L (19-29); Chloride 99 mEq/L (98-109); Glucose 139 mg/dL (70-99); Osmolality,Calculated 283 (280-300); Potassium 3.7 mEq/L (3.5-4.5); Sodium 134 mEq/L (136-145); eGFR For African Americans > 60 (> 60); eGFR For Non-African Americans > 60 (> 60)
[2017-05-08 04:52] LABS: Platelet Count 85 K/mcL (140-400)
[2017-05-08 04:53] LABS: Platelet Clumps Few (Not Present); Platelet Estimate Marked Decrease (Normal)
[2017-05-08] MEDS: *HR* Enoxaparin 40 MG/0.4 ML SYRINGE SQ SCH (05:26)
[2017-05-08] MEDS: Gabapentin 100 MG CAPSULE PO SCH ×3 (08:36→19:50)
[2017-05-08] MEDS: Divalproex (12 HR) 500 MG TABLET PO SCH ×2 (08:36→19:50)
[2017-05-08] MEDS: Piperacillin/Tazobactam 3.375 GM in D5% in Water (Mini-Bag+) 100 ML IVPB SCH ×2 (08:37→16:16)
[2017-05-08] MEDS: amLODIPine 5 MG TABLET PO SCH (08:37)
--- NOTE | 2017-05-08 12:12 | Electrocardiograph Report ---
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
[2017-05-08] MEDS: Lithium Carbonate 300 MG CAPSULE PO SCH (19:50)
--- NOTE | 2017-05-08 19:59 | Internal Med Progress Note ---
Date of Encounter: 05/08/17 Time of Encounter: 10:00 - Assessment and plan (1) Aspiration pneumonia Current Visit: Yes Status: Acute Assessment and plan: We will treat him with vancomycin and Zosyn. Follow-up blood cultures and sputum culture. Speech and swallow evaluation to rule out silent aspiration. Qualifiers: Aspiration pneumonia type: unspecified Laterality: right Lung location: upper lobe of lung Qualified Code(s): J69.0 - Pneumonitis due to inhalation of food and vomit (2) Frequent falls Current Visit: Yes Status: Acute Assessment and plan: Full precautions. Discussed plan of care with his POA and the patient and POA both agree that the patient would benefit from subacute rehabilitation [facility] We will obtain PTOT evaluation. (3) COPD (chronic obstructive pulmonary disease) Current Visit: Yes Status: Chronic Assessment and plan: Inhaled bronchodilators. Qualifiers: COPD type: unspecified COPD Qualified Code(s): J44.9 - Chronic obstructive pulmonary disease, unspecified (4) Nicotine dependence Current Visit: Yes Status: Chronic Qualifiers: Nicotine product type: cigarettes Substance use status: unspecified nicotine-induced disorder Qualified Code(s): F17.219 - Nicotine dependence, cigarettes, with unspecified nicotine-induced disorders (5) DVT prophylaxis Current Visit: Yes Status: Acute Assessment and plan: Subcutaneous Lovenox (6) Acute respiratory failure Current Visit: Yes Status: Acute Qualifiers: Respiratory failure complication: hypoxia Qualified Code(s): J96.01 - Acute respiratory failure with hypoxia (7) Acute encephalopathy Current Visit: Yes Status: Acute (8) Discharge planning issues Current Visit: Yes Status: Acute - Subjective Interval history: Patient presented to the hospital with altered mental status. Yesterday found to be in respiratory distress, placed on BiPAP. There was concern for aspiration and therefore he was transferred to the ICU. - Constitutional Vitals: Temp Pulse Resp BP Pulse Ox 97.6 F 89 24 155/96 95 05/08/17 15:39 05/08/17 19:30 05/08/17 19:30 05/08/17 19:30 05/08/17 19:30 General appearance: Present: disheveled, A&O X 3, no acute distress, answers questions appropriately (sometimes- but sometimes unintelligible) - Respiratory Respiratory exam: Present: rales. Absent: accessory muscle use, rhonchi, wheezes - Cardiovascular Cardiovascular exam: Present: RRR, +S1, +S2. Absent: diastolic murmur, gallop, rubs, systolic murmur - GI/Abdominal GI/Abdominal exam: Present: normal bowel sounds, soft, no peritoneal signs. Absent: distended, tenderness - Extremities Exam Extremities exam: Present: warm, radial pulses palpable and symetrical. Absent : calf tenderness, cyanotic, pedal edema - Neurological Exam Neurological exam: Present: CN II-XII intact, oriented X3, no focal deficits. Absent: pronater drift, facial droop, speech deficit - Skin Skin exam: Present: dry, intact Internal Medicine: Result - Labs CBC & Chem 7: 05/08/17 04:13 05/08/17 04:13 Labs: Short CBC 05/08/17 Range/Units 04:13 WBC 8.2 (4.3-11.1) K/mcL Hgb 14.5 (12.9-16.9) g/dL Hct 44.1 (37.5-50.1) % Plt Count 85 L (140-400) K/mcL Neutrophils # 5.7 (1.6-8.9) K/mcL BMP 05/08/17 04:13 Sodium 134 L Potassium 3.7 Chloride 99 Carbon Dioxide 28 BUN 20 Creatinine 0.80 Glucose 139 H Calcium 8.3 L Cardiac Enzymes 05/08/17 Range/Units 04:13 Troponin I 0.02 (0-0.03) ng/mL - ABG Interpretation ABG results: ABG ABG pH 7.45 pH Units (7.32-7.45) 05/07/17 18:00 ABG pCO2 40 mmHg (35-45) 05/07/17 18:00 ABG pO2 83 mmHg (85-104) L 05/07/17 18:00 ABG O2 Saturation 97 % (95-98) 05/07/17 18:00 - Impressions CT of the chest reviewed by myself with patchy opacities in the right upper lobe. Consult Discharge Plan - Plan [facility]errals: [facility] [Primary Care Provider] -
[2017-05-09] MEDS: Ipratropium/Albuterol Neb 3 ML IH SCH ×6 (00:08→21:17)
[2017-05-09] MEDS: Piperacillin/Tazobactam 3.375 GM in D5% in Water (Mini-Bag+) 100 ML IVPB SCH ×4 (00:16→23:52)
[2017-05-09 03:09] LABS: Basophils % 0.2 %
[2017-05-09 03:11] LABS: Eosinophils % 0.5 %; Hematocrit 45.9 % (37.5-50.1); Hemoglobin 14.9 g/dL (12.9-16.9); Immature Granulocytes % 0.8 % (0-4); Immature Platelets 14.9 % (1.1-6.1); Lymphocytes # 1.1 K/mcL (0.6-4.6); Lymphocytes % 17.7 %; Mean Corpuscular HGB Conc 32.5 g/dL (31.6-35.5); Mean Corpuscular Volume 92.5 fL (83.0-100.0); Mean Platelet Volume 11.6 fL (9.4-12.4); Monocytes # 0.8 K/mcL (0.0-1.3); Neutrophils # 4.3 K/mcL (1.6-8.9); Red Blood Count 4.96 M/mcL (4.19-5.50); Red Cell Distribution Width 13.4 % (11.5-14.5); Segmented Neutrophils % 67.8 %
[2017-05-09 03:17] LABS: Platelet Count 90 K/mcL (140-400)
[2017-05-09 03:26] LABS: BUN/Creatinine Ratio 16 (6-26); Blood Urea Nitrogen 13 mg/dL (8-26); Calcium 8.9 mg/dL (8.6-10.8); Carbon Dioxide 30 mEq/L (19-29); Chloride 98 mEq/L (98-109); Glucose 110 mg/dL (70-99); Osmolality,Calculated 281 (280-300); Potassium 3.6 mEq/L (3.5-4.5); Sodium 135 mEq/L (136-145); eGFR For African Americans > 60 (> 60); eGFR For Non-African Americans > 60 (> 60)
[2017-05-09] MEDS: Vancomycin 1,500 MG in D5% in Water 250 ML IVPB SCH ×2 (04:49→15:39)
[2017-05-09] MEDS: *HR* Enoxaparin 40 MG/0.4 ML SYRINGE SQ SCH (04:50)
[2017-05-09] MEDS: Gabapentin 100 MG CAPSULE PO SCH ×3 (07:59→21:38)
[2017-05-09] MEDS: amLODIPine 5 MG TABLET PO SCH (07:59)
[2017-05-09] MEDS: Divalproex (12 HR) 500 MG TABLET PO SCH ×2 (07:59→21:39)
[2017-05-09 08:15] LABS: Amphetamine Screen,Urine Negative ng/mL (Cutoff=1000); Barbiturate Screen,Urine Positive ng/mL (Cutoff=200); Benzodiazepines Screen,Urine Negative ng/mL (Cutoff=200); Cannabinoid Screen,Urine Negative ng/mL (Cutoff = 50); Cocaine Screen,Urine Negative ng/mL (Cutoff= 300); Opiate Screen,Urine Negative ng/mL (Cutoff=300); Phencyclidine Screen,Urine Negative ng/mL (Cutoff=25)
[2017-05-09] MEDS ORDERED: methylPREDNISolone 125 MG/2 ML VIAL IVP ONE (10:32)
[2017-05-09] MEDS: Carbidopa/Levodopa 25/100 TABLET PO SCH ×3 (10:44→21:39)
--- NOTE | 2017-05-09 10:46 | Internal Med Progress Note ---
<Modesto Summers - Last Filed: 05/09/17 11:44> Date of Encounter: 05/09/17 Time of Encounter: 09:00 - Assessment and plan (1) Aspiration pneumonia Current Visit: Yes Status: Acute Assessment and plan: Continue vancomycin and Zosyn. Follow-up blood cultures negative thus far and sputum culture results pending. Encouraged incentive spirometry. Speech and swallow evaluation negative, consider swallow study to rule out silent aspiration. Qualifiers: Aspiration pneumonia type: unspecified Laterality: right Lung location: upper lobe of lung Qualified Code(s): J69.0 - Pneumonitis due to inhalation of food and vomit (2) COPD (chronic obstructive pulmonary disease) Current Visit: Yes Status: Acute Assessment and plan: Continue Inhaled bronchodilators. Continue vancomycin and Zosyn. Start Solu- Medrol 125 mg IV now then 60 mg IV every 8 hours. Wean supplemental oxygen as tolerated. Qualifiers: COPD type: COPD with acute exacerbation Qualified Code(s): J44.1 - Chronic obstructive pulmonary disease with (acute) exacerbation (3) Parkinson disease Current Visit: Yes Status: Acute Assessment and plan: Patient has cogwheel rigidity, shuffling gait, and generalized resting tremor. Continue Cogentin. Start low dose levodopa/ carbidopa and recommended outpatient follow-up with neurology (4) Nicotine dependence Current Visit: Yes Status: Chronic Assessment and plan: Discussed the importance of tobacco cessation. Patient declines need for further counseling, declines nicotine patch at this time Qualifiers: Nicotine product type: cigarettes Substance use status: unspecified nicotine-induced disorder Qualified Code(s): F17.219 - Nicotine dependence, cigarettes, with unspecified nicotine-induced disorders (5) Acute respiratory failure Current Visit: Yes Status: Acute Assessment and plan: Patient was on nasal cannula this morning he remained dyspneic on examination, we will trial BiPAP. IV fluids have been stopped and the patient was given a one-time dose of IV Lasix. No history of heart failure although he did appear fluid overloaded on examination with coarse wheezing throughout and audible wheezing present. We will monitor closely. ABGs pending. Of note, when I examined him yesterday, he has mild audible wheezing consistent with upper airway congestion as his lungs were clear. His nurse also stated that this am around 7am that he was not nearly as dyspneic as well. Will check abg's- consider more imaging for possible aspiration? Patient does have a moist, wet, unproductive cough. Qualifiers: Respiratory failure complication: hypoxia Qualified Code(s): J96.01 - Acute respiratory failure with hypoxia (6) Hypertension Current Visit: Yes Status: Acute Assessment and plan: Hypertension is not listed in the patient's history and he is not on any antihypertensive medications at home. Blood pressure better controlled since initiating amlodipine with lopressor prn IV Qualifiers: Hypertension type: essential hypertension Qualified Code(s): I10 - Essential (primary) hypertension (7) Acute encephalopathy Current Visit: Yes Status: Acute Assessment and plan: Resolved. Suspected although unsure on the etiology. (8) Seizure disorder Current Visit: No Status: Acute Assessment and plan: Continue home med Depakote (9) Frequent falls Current Visit: Yes Status: Acute Assessment and plan: Full precautions. Discussed plan of care with his POA and the patient and POA both agree that the patient would benefit from subacute rehabilitation prior to return to the detention. PTOT evaluation. (10) Discharge planning issues Current Visit: Yes Status: Acute (11) DVT prophylaxis Current Visit: Yes Status: Acute Assessment and plan: Subcutaneous Lovenox Patient seen and examined. Plan discussed with and agreed upon with Dr. Estrada - Subjective Interval history: Patient resting comfortably in bed. Patient reports cough, wheeze, and minimal shortness of breath. Patient denies fevers, chills, chest pain, or new complaints. Nursing is at bedside in reports patient is ambulating with assistance - Constitutional Vitals: Temp Pulse Resp BP Pulse Ox 97.6 F 81 20 132/83 92 05/09/17 10:07 05/09/17 10:07 05/09/17 10:07 05/09/17 10:07 05/09/17 10:07 General appearance: Present: disheveled, A&O X 3, no acute distress, answers questions appropriately (sometimes- but sometimes unintelligible) Exam: Elderly, resting tremor - Head Head exam: Present: atraumatic, normocephalic - Eye Eye exam: Present: PERRL, conjuntiva pink, sclera anicteric Pupils: Present: PERRL - Neck Neck exam general surgery: Present: supple, trachea midline. Absent: lymphadenopathy - Respiratory Respiratory exam: Present: wheezes. Absent: accessory muscle use, rales, rhonchi Additional comments: Diffuse wheezing bilaterally. Supplemental oxygen via nasal cannula - Cardiovascular Cardiovascular exam: Present: RRR, +S1, +S2. Absent: diastolic murmur, gallop, rubs, systolic murmur - GI/Abdominal GI/Abdominal exam: Present: normal bowel sounds, soft, no peritoneal signs. Absent: distended, tenderness - Extremities Exam Extremities exam: Present: warm, radial pulses palpable and symetrical. Absent : calf tenderness, cyanotic, pedal edema Additional comments: Cogwheel rigidity present on bilateral upper extremities - Neurological Exam Neurological exam: Present: abnormal gait. Absent: pronater drift, facial droop , speech deficit Additional comments: Generalized tremor with Joya rigidity and upper extremities. Shuffling gait during ambulation with nursing - Skin Skin exam: Present: dry, intact Internal Medicine: Result - Labs CBC & Chem 7: 05/09/17 02:53 05/09/17 02:53 Labs: Short CBC 05/09/17 Range/Units 02:53 WBC 6.3 (4.3-11.1) K/mcL Hgb 14.9 (12.9-16.9) g/dL Hct 45.9 (37.5-50.1) % Plt Count 90 L (140-400) K/mcL Neutrophils # 4.3 (1.6-8.9) K/mcL BMP 05/09/17 02:53 Sodium 135 L Potassium 3.6 Chloride 98 Carbon Dioxide 30 H BUN 13 Creatinine 0.82 Glucose 110 H Calcium 8.9 - ABG Interpretation ABG results: ABG ABG pH 7.45 pH Units (7.32-7.45) 05/07/17 18:00 ABG pCO2 40 mmHg (35-45) 05/07/17 18:00 ABG pO2 83 mmHg (85-104) L 05/07/17 18:00 ABG O2 Saturation 97 % (95-98) 05/07/17 18:00 Consult Discharge Plan - Plan [facility] Provider[facility] - <Singh Estrada - Last Filed: 05/09/17 16:33> Date of Encounter: 05/09/17 - Assessment and plan (1) Aspiration pneumonia Current Visit: Yes Status: Acute Qualifiers: Aspiration pneumonia type: unspecified Laterality: right Lung location: upper lobe of lung Qualified Code(s): J69.0 - Pneumonitis due to inhalation of food and vomit (2) Frequent falls Current Visit: Yes Status: Acute (3) COPD (chronic obstructive pulmonary disease) Current Visit: Yes Status: Acute Qualifiers: COPD type: COPD with acute exacerbation Qualified Code(s): J44.1 - Chronic obstructive pulmonary disease with (acute) exacerbation (4) Nicotine dependence Current Visit: Yes Status: Chronic Qualifiers: Nicotine product type: cigarettes Substance use status: unspecified nicotine-induced disorder Qualified Code(s): F17.219 - Nicotine dependence, cigarettes, with unspecified nicotine-induced disorders (5) DVT prophylaxis Current Visit: Yes Status: Acute (6) Acute respiratory failure Current Visit: Yes Status: Acute Qualifiers: Respiratory failure complication: hypoxia Qualified Code(s): J96.01 - Acute respiratory failure with hypoxia (7) Acute encephalopathy Current Visit: Yes Status: Acute (8) Discharge planning issues Current Visit: Yes Status: Acute - Constitutional Vitals: Temp Pulse Resp BP Pulse Ox 97.8 F 98 16 129/82 99 05/09/17 14:28 05/09/17 14:28 05/09/17 15:27 05/09/17 14:28 05/09/17 15:27 Internal Medicine: Result - Labs CBC & Chem 7: 05/09/17 02:53 05/09/17 02:53 Labs: Short CBC 05/09/17 Range/Units 02:53 WBC 6.3 (4.3-11.1) K/mcL Hgb 14.9 (12.9-16.9) g/dL Hct 45.9 (37.5-50.1) % Plt Count 90 L (140-400) K/mcL Neutrophils # 4.3 (1.6-8.9) K/mcL BMP 05/09/17 02:53 Sodium 135 L Potassium 3.6 Chloride 98 Carbon Dioxide 30 H BUN 13 Creatinine 0.82 Glucose 110 H Calcium 8.9 - ABG Interpretation ABG results: ABG ABG pH 7.45 pH Units (7.32-7.45) 05/07/17 18:00 ABG pCO2 40 mmHg (35-45) 05/07/17 18:00 ABG pO2 83 mmHg (85-104) L 05/07/17 18:00 ABG O2 Saturation 97 % (95-98) 05/07/17 18:00 - Attending Attestation I examined this patient and my medical decision-making was reviewed with the Resident Physician, Dr Summers. I agree with the documented findings, disposition and treatment plan as described except to the extent set forth below. Continue IV antibiotics for aspiration pneumonia. Follow-up blood cultures. We will start Sinemet for new diagnosis of Parkinson's disease. Urine toxicology report noted. Positive barbiturates I suspect is secondary to cross reactivity.
[2017-05-09] MEDS: methylPREDNISolone 60 MG in 0.9 % Sodium Chloride 50 ML IVPB SCH (17:15)
[2017-05-09] MEDS: Lithium Carbonate 300 MG CAPSULE PO SCH (21:39)
[2017-05-10] MEDS: Ipratropium/Albuterol Neb 3 ML IH SCH ×7 (00:13→23:41)
[2017-05-10] MEDS: *HR* OxyCODONE Immed Rel 5 MG TABLET PO PRN ×3 (01:47→15:53)
[2017-05-10] MEDS: methylPREDNISolone 60 MG in 0.9 % Sodium Chloride 50 ML IVPB SCH ×3 (01:48→17:20)
[2017-05-10 03:41] LABS: Basophils % 0.2 %; Hematocrit 46.1 % (37.5-50.1); Hemoglobin 14.9 g/dL (12.9-16.9); Immature Granulocytes % 0.7 % (0-4); Immature Platelets 16.9 % (1.1-6.1); Lymphocytes # 0.8 K/mcL (0.6-4.6); Lymphocytes % 18.7 %; Mean Corpuscular HGB Conc 32.3 g/dL (31.6-35.5); Mean Corpuscular Hemoglobin 30.2 pg (28.0-33.3); Mean Corpuscular Volume 93.3 fL (83.0-100.0); Mean Platelet Volume 12.1 fL (9.4-12.4); Monocytes # 0.4 K/mcL (0.0-1.3); Monocytes % 8.3 %; Platelet Count 104 K/mcL (140-400); Red Blood Count 4.94 M/mcL (4.19-5.50); Red Cell Distribution Width 13.2 % (11.5-14.5); Segmented Neutrophils % 72.1 %
[2017-05-10 03:55] LABS: Albumin 2.9 g/dL (3.5-5.0); Albumin/Globulin Ratio 0.7 (1.1-2.2); Alkaline Phosphatase 39 Units/L (38-126); Aspartate Amino Transferase 19 Units/L (5-34); BUN/Creatinine Ratio 21 (6-26); Bilirubin,Total 0.3 mg/dL (0.2-1.2); Blood Urea Nitrogen 20 mg/dL (8-26); Calcium 9.2 mg/dL (8.6-10.8); Carbon Dioxide 25 mEq/L (19-29); Chloride 100 mEq/L (98-109); Globulin 4.4 g/dL (2.4-3.5); Glucose 150 mg/dL (70-99); Osmolality,Calculated 285 (280-300); Potassium 4.2 mEq/L (3.5-4.5); Sodium 135 mEq/L (136-145); Total Protein 7.3 g/dL (6.0-8.3); eGFR For African Americans > 60 (> 60); eGFR For Non-African Americans > 60 (> 60)
[2017-05-10 03:56] LABS: Alanine Aminotransferase < 6 Units/L (0-55)
[2017-05-10 04:13] LABS: Large Platelets Present (Not Present); Platelet Estimate Decreased (Normal); Reactive Lymphocytes Present (Not Present)
[2017-05-10] MEDS: Vancomycin 1,500 MG in D5% in Water 250 ML IVPB SCH ×2 (04:23→15:47)
[2017-05-10] MEDS: *HR* Enoxaparin 40 MG/0.4 ML SYRINGE SQ SCH (06:05)
[2017-05-10] MEDS: Carbidopa/Levodopa 25/100 TABLET PO SCH ×3 (07:36→21:45)
[2017-05-10] MEDS: Piperacillin/Tazobactam 3.375 GM in D5% in Water (Mini-Bag+) 100 ML IVPB SCH ×2 (07:36→15:48)
[2017-05-10] MEDS: Gabapentin 100 MG CAPSULE PO SCH ×3 (07:37→21:45)
[2017-05-10] MEDS: Divalproex (12 HR) 500 MG TABLET PO SCH ×2 (07:37→21:45)
[2017-05-10] MEDS: amLODIPine 5 MG TABLET PO SCH (07:37)
[2017-05-10] MEDS ORDERED: Aminoglycoside Consult 1 EACH MC ONE (08:37)
--- NOTE | 2017-05-10 09:02 | Internal Med Progress Note ---
<Modesto Summers - Last Filed: 05/10/17 13:45> Date of Encounter: 05/10/17 Time of Encounter: 09:01 - Assessment and plan (1) Aspiration pneumonia Current Visit: Yes Status: Acute Assessment and plan: Continue vancomycin and Zosyn IV for aspiration pneumonia while awaiting culture results. Blood cultures negative thus far and sputum culture results pending. Encouraged incentive spirometry. Continue duonebs and steroids. Repeat chest x-ray today shows left basilar atelectasis Speech and swallow evaluation negative, consider swallow study to rule out silent aspiration. Qualifiers: Aspiration pneumonia type: unspecified Laterality: right Lung location: upper lobe of lung Qualified Code(s): J69.0 - Pneumonitis due to inhalation of food and vomit (2) COPD (chronic obstructive pulmonary disease) Current Visit: Yes Status: Acute Assessment and plan: Continue Inhaled bronchodilators. Continue vancomycin and Zosyn for aspiration pneumonia coverage. Continue Solu-Medrol 60 mg IV every 8 hours. Wean supplemental oxygen as tolerated. Qualifiers: COPD type: COPD with acute exacerbation Qualified Code(s): J44.1 - Chronic obstructive pulmonary disease with (acute) exacerbation (3) Parkinson disease Current Visit: Yes Status: Acute Assessment and plan: Patient has cogwheel rigidity, shuffling gait, and generalized resting tremor. Continue Cogentin and low dose levodopa/ carbidopa. Recommended outpatient follow-up with neurology. Urine toxicology report noted. Positive barbiturates I suspect is secondary to cross reactivity. (4) Nicotine dependence Current Visit: Yes Status: Chronic Assessment and plan: Discussed the importance of tobacco cessation. Patient declines need for further counseling, declines nicotine patch at this time Qualifiers: Nicotine product type: cigarettes Substance use status: unspecified nicotine-induced disorder Qualified Code(s): F17.219 - Nicotine dependence, cigarettes, with unspecified nicotine-induced disorders (5) Acute respiratory failure Current Visit: Yes Status: Acute Assessment and plan: Acute respiratory distress upon presentation. Continue nasal cannula and BiPAP as needed. Status post IV Lasix. Slightly improved coarse wheezing throughout. We will monitor closely. Patient does have a moist, wet, unproductive cough. Awaiting sputum culture results Qualifiers: Respiratory failure complication: hypoxia Qualified Code(s): J96.01 - Acute respiratory failure with hypoxia (6) Hypertension Current Visit: Yes Status: Acute Assessment and plan: Hypertension is not listed in the patient's history and he is not on any antihypertensive medications at home. Blood pressure better controlled since initiating amlodipine with lopressor prn IV Qualifiers: Hypertension type: essential hypertension Qualified Code(s): I10 - Essential (primary) hypertension (7) Acute encephalopathy Current Visit: Yes Status: Acute Assessment and plan: Resolved. Uncertain etiology. (8) Seizure disorder Current Visit: No Status: Acute Assessment and plan: Continue home Depakote (9) Frequent falls Current Visit: Yes Status: Acute Assessment and plan: Full precautions. Discussed plan of care with his POA and the patient and POA both agree that the patient would benefit from subacute rehabilitation prior to return to the detention. Continue PT/OT. (10) Discharge planning issues Current Visit: Yes Status: Acute Assessment and plan: Patient is a member of a detention. Per report, he has had so many falls recently, it does not sit appear as if the detention will be willing to take him back unless he goes to rehabilitation first. At this point, I am unable to determine whether the patient has the capacity to make that decision based upon his healthcare. (11) DVT prophylaxis Current Visit: Yes Status: Acute Assessment and plan: Continue Subcutaneous Lovenox. Encourage ambulation. Patient seen and examined. Plan discussed with and agreed upon with Dr. Estrada - Subjective Interval history: Patient resting comfortably in bed. Patient reports productive cough, wheeze, and shortness of breath. Patient denies fevers, chills, chest pain, or new complaints. Nursing is at bedside and reports patient is ambulating with assistance and using incentive spirometry as directed - Constitutional Vitals: Temp Pulse Resp BP Pulse Ox 98.1 F 69 18 131/68 92 05/10/17 06:27 05/10/17 06:27 05/10/17 08:05 05/10/17 06:27 05/10/17 08:05 General appearance: Present: disheveled, A&O X 3, no acute distress, answers questions appropriately Exam: Elderly, appears ill - Head Head exam: Present: normocephalic. Absent: atraumatic Additional comments: Ecchymosis right periorbital region - Eye Eye exam: Present: PERRL, conjuntiva pink, sclera anicteric Pupils: Present: PERRL Additional comments: Ecchymosis right periorbital region - Neck Neck exam general surgery: Present: supple, trachea midline. Absent: lymphadenopathy - Respiratory Respiratory exam: Present: wheezes. Absent: accessory muscle use, CTAB, rales, rhonchi Additional comments: Diffuse wheezes bilaterally, supplemental oxygen at 2 L - Cardiovascular Cardiovascular exam: Present: RRR, +S1, +S2. Absent: diastolic murmur, gallop, rubs, systolic murmur - GI/Abdominal GI/Abdominal exam: Present: normal bowel sounds, soft, no peritoneal signs. Absent: distended, tenderness - Extremities Exam Extremities exam: Present: warm, radial pulses palpable and symetrical. Absent : calf tenderness, cyanotic, pedal edema - Neurological Exam Neurological exam: Present: CN II-XII intact, oriented X3, no focal deficits. Absent: pronater drift, facial droop, speech deficit Additional comments: Generalized weakness, Cogwheel rigidity, body tremors, shuffling gait with ambulation per nursing - Psychiatric Psychiatric exam: Present: normal affect, normal mood Additional comments: Cooperative - Skin Skin exam: Present: dry, intact Additional comments: Ecchymosis right periorbital region Internal Medicine: Result - Labs CBC & Chem 7: 05/10/17 03:33 05/10/17 03:33 Labs: Short CBC 05/10/17 Range/Units 03:33 WBC 4.2 L (4.3-11.1) K/mcL Hgb 14.9 (12.9-16.9) g/dL Hct 46.1 (37.5-50.1) % Plt Count 104 L (140-400) K/mcL Neutrophils # 3.0 (1.6-8.9) K/mcL BMP 05/10/17 03:33 Sodium 135 L Potassium 4.2 Chloride 100 Carbon Dioxide 25 BUN 20 Creatinine 0.97 Glucose 150 H Calcium 9.2 Liver Function 05/10/17 Range/Units 03:33 Total Bilirubin 0.3 (0.2-1.2) mg/dL AST 19 (5-34) Units/L ALT < 6 (0-55) Units/L Alkaline Phosphatase 39 (38-126) Units/L Albumin 2.9 L (3.5-5.0) g/dL - ABG Interpretation ABG results: ABG ABG pH 7.45 pH Units (7.32-7.45) 05/07/17 18:00 ABG pCO2 40 mmHg (35-45) 05/07/17 18:00 ABG pO2 83 mmHg (85-104) L 05/07/17 18:00 ABG O2 Saturation 97 % (95-98) 05/07/17 18:00 - Pulse Oximetry Interpretation Digit-Finger Pulse Oximetry Readin O2 Sat by Pulse Oximetry: 92 Additional comments: The wean oxygen as tolerated - Diagnostic Studies Chest x-ray Status: image reviewed by me Additional comments: Impressions Chest X-Ray 05/10/17 10:06 IMPRESSION: Left basilar atelectasis. No acute cardiopulmonary process identified. D/ / Paresh Rodgers MD / Paresh Rodgers MD Interpreting Provider: Paresh Rodgers MD Consult Discharge Plan - Plan [facility]Primary Care Provider[facility] - <Singh Estrada - Last Filed: 05/10/17 17:44> Date of Encounter: 05/10/17 - Assessment and plan (1) Aspiration pneumonia Current Visit: Yes Status: Acute Qualifiers: Aspiration pneumonia type: unspecified Laterality: right Lung location: upper lobe of lung Qualified Code(s): J69.0 - Pneumonitis due to inhalation of food and vomit (2) Frequent falls Current Visit: Yes Status: Acute (3) COPD (chronic obstructive pulmonary disease) Current Visit: Yes Status: Acute Qualifiers: COPD type: COPD with acute exacerbation Qualified Code(s): J44.1 - Chronic obstructive pulmonary disease with (acute) exacerbation (4) Nicotine dependence Current Visit: Yes Status: Chronic Qualifiers: Nicotine product type: cigarettes Substance use status: unspecified nicotine-induced disorder Qualified Code(s): F17.219 - Nicotine dependence, cigarettes, with unspecified nicotine-induced disorders (5) DVT prophylaxis Current Visit: Yes Status: Acute (6) Acute respiratory failure Current Visit: Yes Status: Acute Qualifiers: Respiratory failure complication: hypoxia Qualified Code(s): J96.01 - Acute respiratory failure with hypoxia (7) Acute encephalopathy Current Visit: Yes Status: Acute (8) Discharge planning issues Current Visit: Yes Status: Acute - Constitutional Vitals: Temp Pulse Resp BP Pulse Ox 97.8 F 74 20 163/82 92 05/10/17 14:51 05/10/17 14:51 05/10/17 16:18 05/10/17 14:51 05/10/17 16:18 Internal Medicine: Result - Labs CBC & Chem 7: 05/10/17 03:33 05/10/17 03:33 Labs: Short CBC 05/10/17 Range/Units 03:33 WBC 4.2 L (4.3-11.1) K/mcL Hgb 14.9 (12.9-16.9) g/dL Hct 46.1 (37.5-50.1) % Plt Count 104 L (140-400) K/mcL Neutrophils # 3.0 (1.6-8.9) K/mcL BMP 05/10/17 03:33 Sodium 135 L Potassium 4.2 Chloride 100 Carbon Dioxide 25 BUN 20 Creatinine 0.97 Glucose 150 H Calcium 9.2 Liver Function 05/10/17 Range/Units 03:33 Total Bilirubin 0.3 (0.2-1.2) mg/dL AST 19 (5-34) Units/L ALT < 6 (0-55) Units/L Alkaline Phosphatase 39 (38-126) Units/L Albumin 2.9 L (3.5-5.0) g/dL - ABG Interpretation ABG results: ABG ABG pH 7.45 pH Units (7.32-7.45) 05/07/17 18:00 ABG pCO2 40 mmHg (35-45) 05/07/17 18:00 ABG pO2 83 mmHg (85-104) L 05/07/17 18:00 ABG O2 Saturation 97 % (95-98) 05/07/17 18:00 - Impressions Impressions Chest X-Ray 05/10/17 10:06 IMPRESSION: Left basilar atelectasis. No acute cardiopulmonary process identified. D/ / Paresh Rodgers MD / Paresh Rodgers MD Interpreting Provider: Paresh Rodgers MD - Attending Attestation I examined this patient and my medical decision-making was reviewed with the Resident Physician, Dr Summers. I agree with the documented findings, disposition and treatment plan as described except to the extent set forth below. patient's tremors and cogwheel rigidity have slightly improved from yesterday. Heart exam reveals regular S1 and S2 with no murmurs. Plan: Stop vancomycin. Continue with Zosyn. Follow-up blood cultures and sputum culture. PT OT. Continue with Sinemet. DVT prophylaxis with Lovenox.
--- NOTE | 2017-05-10 12:31 | Electrocardiograph Report ---
[place] [id number] Test Date: 2017-05-07 Pat Name: Rl Alejandra Department: 109 Room: 3A Gender: M Rv Detailer: CARLOS MANUEL : 1945 Requested By: Singh Estrada Order Number: [id number] Reading MD: Bijan Nicole MD Measurements Intervals [place] Rate: 70 P: 74 [place]: 152 QRS: 41 QRSD: 98 T: 42 QT: 382 QTc: 403 Interpretive Statements SINUS RHYTHM Poor R wave progression BASELINE ARTIFACT Electronically Signed On 05-10-2017 12:29:43 EDT by Bijan Nicole MD
[2017-05-10] MEDS: Lithium Carbonate 300 MG CAPSULE PO SCH (21:45)
[2017-05-10] MEDS: *HR* Acetylcysteine 20% 600 MG/3 ML ORAL SYRINGE PO SCH (21:52)
[2017-05-11] MEDS: Piperacillin/Tazobactam 3.375 GM in D5% in Water (Mini-Bag+) 100 ML IVPB SCH ×2 (00:44→10:06)
[2017-05-11] MEDS: methylPREDNISolone 60 MG in 0.9 % Sodium Chloride 50 ML IVPB SCH ×3 (03:00→18:52)
[2017-05-11] MEDS: Ipratropium/Albuterol Neb 3 ML IH SCH ×6 (04:01→22:47)
[2017-05-11 04:44] LABS: Basophils % 0.2 %; Hematocrit 45.4 % (37.5-50.1); Hemoglobin 14.8 g/dL (12.9-16.9); Immature Granulocytes % 0.7 % (0-4); Lymphocytes # 1.1 K/mcL (0.6-4.6); Lymphocytes % 11.2 %; Mean Corpuscular HGB Conc 32.6 g/dL (31.6-35.5); Mean Corpuscular Hemoglobin 30.6 pg (28.0-33.3); Mean Corpuscular Volume 93.8 fL (83.0-100.0); Mean Platelet Volume 12.1 fL (9.4-12.4); Monocytes # 0.8 K/mcL (0.0-1.3); Monocytes % 7.5 %; Neutrophils # 8.2 K/mcL (1.6-8.9); Platelet Count 124 K/mcL (140-400); Red Blood Count 4.84 M/mcL (4.19-5.50); Red Cell Distribution Width 13.2 % (11.5-14.5); Segmented Neutrophils % 80.4 %
[2017-05-11 05:08] LABS: Albumin 2.9 g/dL (3.5-5.0); Albumin/Globulin Ratio 0.7 (1.1-2.2); Alkaline Phosphatase 39 Units/L (38-126); Aspartate Amino Transferase 22 Units/L (5-34); BUN/Creatinine Ratio 23 (6-26); Bilirubin,Total 0.3 mg/dL (0.2-1.2); Blood Urea Nitrogen 23 mg/dL (8-26); Calcium 9.3 mg/dL (8.6-10.8); Carbon Dioxide 29 mEq/L (19-29); Chloride 98 mEq/L (98-109); Globulin 4.1 g/dL (2.4-3.5); Glucose 169 mg/dL (70-99); Osmolality,Calculated 292 (280-300); Potassium 3.8 mEq/L (3.5-4.5); Sodium 137 mEq/L (136-145); eGFR For African Americans > 60 (> 60); eGFR For Non-African Americans > 60 (> 60)
[2017-05-11 05:11] LABS: Alanine Aminotransferase < 6 Units/L (0-55)
[2017-05-11] MEDS: *HR* Enoxaparin 40 MG/0.4 ML SYRINGE SQ SCH (05:27)
[2017-05-11 05:33] LABS: Platelet Estimate Slight Decrease (Normal); Reactive Lymphocytes Present (Not Present)
--- NOTE | 2017-05-11 09:46 | Discharge Summary ---
<Modesto Summers - Last Filed: 05/11/17 18:15> Date of Encounter: 05/11/17 Time of Encounter: 09:46 - Discharge Diagnosis (1) Aspiration pneumonia Status: Acute Qualifiers: Aspiration pneumonia type: unspecified Laterality: right Lung location: upper lobe of lung Qualified Code(s): J69.0 - Pneumonitis due to inhalation of food and vomit (2) COPD (chronic obstructive pulmonary disease) Status: Acute Qualifiers: COPD type: COPD with acute exacerbation Qualified Code(s): J44.1 - Chronic obstructive pulmonary disease with (acute) exacerbation (3) Parkinson disease Status: Acute (4) Nicotine dependence Status: Chronic Qualifiers: Nicotine product type: cigarettes Substance use status: unspecified nicotine-induced disorder Qualified Code(s): F17.219 - Nicotine dependence, cigarettes, with unspecified nicotine-induced disorders (5) Acute respiratory failure Status: Acute Qualifiers: Respiratory failure complication: hypoxia Qualified Code(s): J96.01 - Acute respiratory failure with hypoxia (6) Hypertension Status: Acute Qualifiers: Hypertension type: essential hypertension Qualified Code(s): I10 - Essential (primary) hypertension (7) Acute encephalopathy Status: Acute (8) Seizure disorder Status: Acute (9) Frequent falls Status: Acute (10) Discharge planning issues Status: Acute (11) DVT prophylaxis Status: Acute - Discharge Medications Prescriptions: Amoxicillin/Clavulanate [Augmentin] 875 mg PO BIDWM 10 Days Ipratropium/Albuterol Neb [Duoneb] 3 ml IH Q4H PRN 30 Days PRN Reason: cough, congestion Nebulizer [Aeroeclipse] 1 each MC Q4H PRN 30 Days PRN Reason: cough, congestion Nebulizer Accessories [Pillow Mask] 1 each MC Q4H PRN 30 Days PRN Reason: cough, congestion PredniSONE [Deltasone] 40 mg PO DAILY 4 Days Home Medications: Albuterol Sulfate [Proair Hfa] 1 - 2 puff IH Q6H PRN 05/06/17 [History] Benztropine Mesylate 0.5 mg PO QAM 05/06/17 [History] Benztropine Mesylate 1 mg PO HS 05/06/17 [History] Divalproex (24 HR) [Depakote ER (24 HR)] 500 mg PO BID 05/06/17 [History] Gabapentin [Neurontin] 200 mg PO TID 05/06/17 [History] Levothyroxine [Synthroid] 100 mcg PO DAILY 05/06/17 [History] [place] Carbonate 600 mg PO HS 05/06/17 [History] Tiotropium [Spiriva] 18 mcg IH DAILY 05/06/17 [History] Acetaminophen [Tylenol] 650 mg PO Q6HR PRN #0 tablet 05/11/17 [Rx] Acetylcysteine 20% 600 mg PO BID syringe 05/11/17 [Rx] Amoxicillin/Clavulanate [Augmentin] 875 mg PO BIDWM 10 Days 05/11/17 [Rx] Carbidopa/Levodopa 25/100 [Sinemet 25/100] 1 each PO TID tablet 05/11/17 [Rx] HYDROcodone/Acet 5/325 mg [[place] 5-325 mg] 1 tab PO Q6HR PRN #0 tablet 05/11/17 [Rx] Ipratropium/Albuterol Neb [Duoneb] 3 ml IH Q4H PRN 30 Days 05/11/17 [Rx] Metoprolol [Lopressor] 5 mg IVP Q6HR PRN #0 vial 05/11/17 [Rx] Nebulizer Accessories [Pillow Mask] 1 each MC Q4H PRN 30 Days 05/11/17 [Rx] Nebulizer [Aeroeclipse] 1 each MC Q4H PRN 30 Days 05/11/17 [Rx] Ondansetron [Zofran] 4 mg IVP Q6HR PRN #0 vial 05/11/17 [Rx] OxyCODONE Immed Rel [Roxicodone 5 MG] 10 mg PO Q6HR PRN #0 tablet 05/11/17 [Rx] PredniSONE [Deltasone] 40 mg PO DAILY 4 Days 05/11/17 [Rx] amLODIPine [Norvasc] 5 mg PO DAILY tablet 05/11/17 [Rx] Allergies/Adverse Reactions: Allergies nicotine patches Allergy (Uncoded 05/06/17 03:04) Rash Date of admission: 05/06/17 02:23 [facility] care physician[facility] Consults: 05/06/17 02:26 Consult to Neurology [CONS] Routine Consulting Provider: [facility] Reason for Consult: Resting tremors; recurrent falls - suspected parkinson's disease Call Completed: No 05/06/17 12:17 Consult to [facility]y [facility] [CONS] Routine Reason for SW Consult: PT recs ECF. from a residential. has refused placement in past. may need a guardian... 05/07/17 08:30 Consult to Psychiatry [CONS] Routine Consulting Provider: Jonathan Fan Reason for Consult: from residential. mental health issues and suspected failure to thrive. Here for falls/weakness. Recommend ECF placement- does patient have capacity? Please eval and advise. Call Completed: No 05/07/17 18:19 Consult to Speech Therapy [CONS] Routine Comment: Evaluate, develop and implement POC Reason for Consult: Possible aspiration. Call Completed: No - Patient Status Disposition: Transfer SNF Condition: Fair Functional capacity at discharge: bed bound (Fall precautions) Overall status at discharge: patient is progressing back to baseline - Discharge Instructions Instructions: Chronic Obstructive Pulmonary Disease (DC), Chronic Hypertension (DC), Pneumonia (DC) Follow [facility] With: [facility] [Primary Care Provider] - Additional Instructions: Continue Augmentin for 10 days. Follow up with [facility] in 1 week for Parkinson's Disease medication management. - Diet and Activity Activity: as per physical therapy Diet: regular diet Hospital course: Mr. Alejandra is a 72 year old male - Time Spent with Patient Total time spent providing and/or coordinating discharge services: - Constitutional Vitals: Temp Pulse Resp BP Pulse Ox 98.4 F 80 16 162/77 93 05/11/17 04:27 05/11/17 04:27 05/11/17 04:27 05/11/17 04:27 05/11/17 04:27 General appearance: Present: disheveled, A&O X 3, no acute distress, answers questions appropriately <Singh Estrada - Last Filed: 05/11/17 20:03> Date of Encounter: 05/11/17 - Discharge Diagnosis (1) Aspiration pneumonia Priority: Primary Status: Acute Qualifiers: Aspiration pneumonia type: unspecified Laterality: right Lung location: upper lobe of lung Qualified Code(s): J69.0 - Pneumonitis due to inhalation of food and vomit (2) Frequent falls Priority: Secondary Status: Acute (3) COPD (chronic obstructive pulmonary disease) Priority: Secondary Status: Acute Qualifiers: COPD type: COPD with acute exacerbation Qualified Code(s): J44.1 - Chronic obstructive pulmonary disease with (acute) exacerbation (4) Nicotine dependence Priority: Secondary Status: Chronic Qualifiers: Nicotine product type: cigarettes Substance use status: unspecified nicotine-induced disorder Qualified Code(s): F17.219 - Nicotine dependence, cigarettes, with unspecified nicotine-induced disorders (5) DVT prophylaxis Priority: Secondary Status: Acute (6) Acute respiratory failure Priority: Secondary Status: Acute Qualifiers: Respiratory failure complication: hypoxia Qualified Code(s): J96.01 - Acute respiratory failure with hypoxia (7) Acute encephalopathy Priority: Secondary Status: Acute (8) Discharge planning issues Priority: Secondary Status: Acute (9) Parkinsons disease Priority: Secondary Status: Acute Date of admission: 05/06/17 02:23 Primary care physician: PCP [place] Consults: 05/06/17 02:26 Consult to Neurology [CONS] Routine Consulting Provider: Neu[facility] Reason for Consult: Resting tremors; recurrent falls - suspected parkinson's disease Call Completed: No 05/06/17 12:17 Consult to Handy Man [CONS] Routine Reason for SW Consult: PT recs ECF. from a residential. has refused placement in past. may need a guardian... 05/07/17 08:30 Consult to Psychiatry [CONS] Routine Consulting Provider: Psychiat[facility] Reason for Consult: from residential. mental health issues and suspected failure to thrive. Here for falls/weakness. Recommend ECF placement- does patient have capacity? Please eval and advise. Call Completed: No 05/07/17 18:19 Consult to Speech Therapy [CONS] Routine Comment: Evaluate, develop and implement POC Reason for Consult: Possible aspiration. Call Completed: No Hospital course: Mr. Alejandra is a 72 year old male - Time Spent with Patient Total time spent providing and/or coordinating discharge services: - Constitutional Vitals: Temp Pulse Resp BP Pulse Ox 97.9 F 79 16 149/77 90 05/11/17 19:34 05/11/17 19:34 05/11/17 19:35 05/11/17 19:34 05/11/17 19:35 - Attending Attestation I examined this patient and my medical decision-making was reviewed with the Resident Physician, Dr Summers. I agree with the documented findings, disposition and treatment plan as described except to the extent set forth below. Patient admitted with encephalopathy, diagnosed with COPD exacerbation and Parkinson's disease. Will be discharged to subacute rehabilitation.
--- NOTE | 2017-05-11 09:53 | Physician Discharge Referral ---
<Modesto Summers - Last Filed: 05/11/17 09:51> ExtendedCare Referral Info Transfer To: SNF/ECF Provider in Charge after Transfer: PCP Institutional Level of Care: Intermediate (Parkinson's, Frequent falls, Cognitive Impairmnent) - Diagnosis (1) Aspiration pneumonia Status: Acute (2) COPD (chronic obstructive pulmonary disease) Status: Acute (3) Parkinson disease Status: Acute (4) Nicotine dependence Status: Chronic (5) Acute respiratory failure Status: Acute (6) Hypertension Status: Acute (7) Acute encephalopathy Status: Acute (8) Seizure disorder Status: Acute (9) Frequent falls Status: Acute (10) Discharge planning issues Status: Acute (11) DVT prophylaxis Status: Acute - Transfer Medications Prescriptions: Amoxicillin/Clavulanate [Augmentin] 875 mg PO BIDWM 10 Days Ipratropium/Albuterol Neb [Duoneb] 3 ml IH Q4H PRN 30 Days PRN Reason: cough, congestion Nebulizer [Aeroeclipse] 1 each MC Q4H PRN 30 Days PRN Reason: cough, congestion Nebulizer Accessories [Pillow Mask] 1 each MC Q4H PRN 30 Days PRN Reason: cough, congestion PredniSONE [Deltasone] 40 mg PO DAILY 4 Days Home Medications: Albuterol Sulfate [Proair Hfa] 1 - 2 puff IH Q6H PRN 05/06/17 [History] Benztropine Mesylate 0.5 mg PO QAM 05/06/17 [History] Benztropine Mesylate 1 mg PO HS 05/06/17 [History] Divalproex (24 HR) [Depakote ER (24 HR)] 500 mg PO BID 05/06/17 [History] Gabapentin [Neurontin] 200 mg PO TID 05/06/17 [History] Levothyroxine [Synthroid] 100 mcg PO DAILY 05/06/17 [History] [place] Carbonate 600 mg PO HS 05/06/17 [History] Tiotropium [Spiriva] 18 mcg IH DAILY 05/06/17 [History] Acetaminophen [Tylenol] 650 mg PO Q6HR PRN #0 tablet 05/11/17 [Rx] Acetylcysteine 20% 600 mg PO BID syringe 05/11/17 [Rx] Amoxicillin/Clavulanate [Augmentin] 875 mg PO BIDWM 10 Days 05/11/17 [Rx] Carbidopa/Levodopa 25/100 [Sinemet 25/100] 1 each PO TID tablet 05/11/17 [Rx] HYDROcodone/Acet 5/325 mg [[place] 5-325 mg] 1 tab PO Q6HR PRN #0 tablet 05/11/17 [Rx] Ipratropium/Albuterol Neb [Duoneb] 3 ml IH Q4H PRN 30 Days 05/11/17 [Rx] Metoprolol [Lopressor] 5 mg IVP Q6HR PRN #0 vial 05/11/17 [Rx] Nebulizer Accessories [Pillow Mask] 1 each MC Q4H PRN 30 Days 05/11/17 [Rx] Nebulizer [Aeroeclipse] 1 each MC Q4H PRN 30 Days 05/11/17 [Rx] Ondansetron [Zofran] 4 mg IVP Q6HR PRN #0 vial 05/11/17 [Rx] OxyCODONE Immed Rel [Roxicodone 5 MG] 10 mg PO Q6HR PRN #0 tablet 05/11/17 [Rx] PredniSONE [Deltasone] 40 mg PO DAILY 4 Days 05/11/17 [Rx] amLODIPine [Norvasc] 5 mg PO DAILY tablet 05/11/17 [Rx] Allergies/Adverse Reactions: Allergies nicotine patches Allergy (Uncoded 05/06/17 03:04) Rash - Respiratory Orders Smoking Cessation: Smoking cessation has been advised. For more information, call the [place] Tobacco Quit Line at 5-795-EUVT-NOW. CERTIFICATION: I certify that the transfer of the above named patient to an Extended Care Facility is necessary for the continuing treatment of the diagnosis listed. The above information is true and accurate reflection of patient's current condition. Confidential - Redisclosure prohibited without a patient's written consent. <Singh Estrada - Last Filed: 05/11/17 19:59> ExtendedCare Referral Info Provider in Charge after Transfer: PCP Institutional Level of Care: Skilled - Diagnosis (1) Aspiration pneumonia Status: Acute (2) Frequent falls Status: Acute (3) COPD (chronic obstructive pulmonary disease) Status: Acute (4) Nicotine dependence Status: Chronic (5) DVT prophylaxis Status: Acute (6) Acute respiratory failure Status: Acute (7) Acute encephalopathy Status: Acute (8) Discharge planning issues Status: Acute - Respiratory Orders Smoking Cessation: Smoking cessation has been advised. For more information, call the [place] Tobacco Quit Line at 5-259-AZGD-NOW. CERTIFICATION: I certify that the transfer of the above named patient to an Extended Care Facility is necessary for the continuing treatment of the diagnosis listed. The above information is true and accurate reflection of patient's current condition. Confidential - Redisclosure prohibited without a patient's written consent. I examined this patient and my medical decision-making was reviewed with the Resident Physician, Dr Summers. I agree with the documented findings, disposition and treatment plan as described except to the extent set forth below.
[2017-05-11] MEDS: amLODIPine 5 MG TABLET PO SCH (10:10)
[2017-05-11] MEDS: Gabapentin 100 MG CAPSULE PO SCH ×3 (10:10→20:23)
[2017-05-11] MEDS: Carbidopa/Levodopa 25/100 TABLET PO SCH ×3 (10:11→20:24)
[2017-05-11] MEDS: Divalproex (12 HR) 500 MG TABLET PO SCH ×2 (10:12→20:24)
[2017-05-11] MEDS: *HR* Acetylcysteine 20% 600 MG/3 ML ORAL SYRINGE PO SCH ×2 (11:55→20:22)
--- NOTE | 2017-05-11 18:06 | Internal Med Progress Note ---
<Modesto Summers - Last Filed: 05/11/17 18:04> Date of Encounter: 05/11/17 Time of Encounter: 08:30 - Assessment and plan (1) Aspiration pneumonia Current Visit: Yes Status: Acute Assessment and plan: Continue Zosyn and transition to Augmentin for aspiration pneumonia. Blood cultures negative thus far and sputum culture results pending. Encouraged incentive spirometry. Continue duonebs and steroids. Speech and swallow evaluation negative, consider swallow study to rule out silent aspiration. Qualifiers: Aspiration pneumonia type: unspecified Laterality: right Lung location: upper lobe of lung Qualified Code(s): J69.0 - Pneumonitis due to inhalation of food and vomit (2) COPD (chronic obstructive pulmonary disease) Current Visit: Yes Status: Acute Assessment and plan: Continue Inhaled bronchodilators. Continue augmentin for aspiration pneumonia. Continue Solu-Medrol 60 mg IV every 8 hours. Will transition to Prednisone upon discharge. Wean supplemental oxygen as tolerated. Qualifiers: COPD type: COPD with acute exacerbation Qualified Code(s): J44.1 - Chronic obstructive pulmonary disease with (acute) exacerbation (3) Parkinson disease Current Visit: Yes Status: Acute Assessment and plan: patient's tremors and cogwheel rigidity have slightly improved from yesterday. Continue Cogentin and low dose levodopa/ carbidopa. Recommended outpatient follow-up with neurology. Urine toxicology report noted. Positive barbiturates I suspect is secondary to cross reactivity. (4) Nicotine dependence Current Visit: Yes Status: Chronic Assessment and plan: Discussed the importance of tobacco cessation. Patient declines need for further counseling, declines nicotine patch at this time Qualifiers: Nicotine product type: cigarettes Substance use status: unspecified nicotine-induced disorder Qualified Code(s): F17.219 - Nicotine dependence, cigarettes, with unspecified nicotine-induced disorders (5) Acute respiratory failure Current Visit: Yes Status: Acute Assessment and plan: Acute respiratory distress upon presentation. Continue nasal cannula and BiPAP as needed. Status post IV Lasix. Improved wheezing throughout. We will monitor closely. Patient does have a moist, wet, unproductive cough. Awaiting sputum culture results Qualifiers: Respiratory failure complication: hypoxia Qualified Code(s): J96.01 - Acute respiratory failure with hypoxia (6) Hypertension Current Visit: Yes Status: Acute Assessment and plan: Hypertension is not listed in the patient's history and he is not on any antihypertensive medications at home. Blood pressure better controlled since initiating amlodipine with lopressor prn IV Qualifiers: Hypertension type: essential hypertension Qualified Code(s): I10 - Essential (primary) hypertension (7) Acute encephalopathy Current Visit: Yes Status: Acute Assessment and plan: Resolved. Uncertain etiology. (8) Seizure disorder Current Visit: No Status: Acute Assessment and plan: Continue home Depakote (9) Frequent falls Current Visit: Yes Status: Acute Assessment and plan: Full precautions. Discussed plan of care with his POA and the patient and POA both agree that the patient needs subacute rehabilitation prior to [facility]. Conditinal discharge placed. Awaiting placement at this time. Continue PT/OT. (10) Discharge planning issues Current Visit: Yes Status: Acute Assessment and plan: Patient is a member of a [facility]. Per report, he has had so many falls recently, needs SNF/ECF placement (11) DVT prophylaxis Current Visit: Yes Status: Acute Assessment and plan: Continue Subcutaneous Lovenox. Encourage ambulation. Patient seen and examined. Plan discussed with and agreed upon with Dr. Estrada - Subjective Interval history: Patient resting comfortably in bed. Patient's tremors and cogwheel rigidity have slightly improved from yesterday. Patient reports non-productive cough, wheeze, and decreased shortness of breath. Patient denies fevers, chills, chest pain, or new complaints. Nursing is at bedside and reports using incentive spirometry as directed. He has difficulty getting up out of bed without assistance. - Constitutional Vitals: Temp Pulse Resp BP Pulse Ox 98.4 F 80 18 162/77 91 05/11/17 04:27 05/11/17 04:27 05/11/17 16:28 05/11/17 04:27 05/11/17 16:28 General appearance: Present: disheveled, A&O X 3, no acute distress, answers questions appropriately - Head Head exam: Present: normocephalic Additional comments: ecchymosis to right periorbital region improved. - Eye Eye exam: Present: PERRL, conjuntiva pink, sclera anicteric Pupils: Present: PERRL - ENT ENT exam: Present: mucous membranes moist, normal oropharynx - Neck Neck exam general surgery: Present: supple, trachea midline. Absent: lymphadenopathy - Respiratory Respiratory exam: Present: wheezes. Absent: accessory muscle use, CTAB, rales, respiratory distress, rhonchi - Cardiovascular Cardiovascular exam: Present: RRR, +S1, +S2. Absent: diastolic murmur, gallop, rubs, systolic murmur - GI/Abdominal GI/Abdominal exam: Present: normal bowel sounds, soft, no peritoneal signs. Absent: distended, tenderness - Extremities Exam Extremities exam: Present: warm, radial pulses palpable and symetrical. Absent : calf tenderness, cyanotic, pedal edema Additional comments: cogwhel rigidity - Neurological Exam Neurological exam: Present: CN II-XII intact, oriented X3, no focal deficits. Absent: pronater drift, facial droop, speech deficit Additional comments: patient's tremors and cogwheel rigidity have slightly improved from yesterday. cogwheel rigidity. able to stand with assistance - Skin Skin exam: Present: dry Additional comments: ecchymosis right perorbital region Internal Medicine: Result - Labs CBC & Chem 7: 05/11/17 04:28 05/11/17 04:28 Labs: Short CBC 05/11/17 Range/Units 04:28 WBC 10.2 D (4.3-11.1) K/mcL Hgb 14.8 (12.9-16.9) g/dL Hct 45.4 (37.5-50.1) % Plt Count 124 L (140-400) K/mcL Neutrophils # 8.2 (1.6-8.9) K/mcL BMP 05/11/17 04:28 Sodium 137 Potassium 3.8 Chloride 98 Carbon Dioxide 29 BUN 23 Creatinine 1.01 Glucose 169 H Calcium 9.3 Liver Function 05/11/17 Range/Units 04:28 Total Bilirubin 0.3 (0.2-1.2) mg/dL AST 22 (5-34) Units/L ALT < 6 (0-55) Units/L Alkaline Phosphatase 39 (38-126) Units/L Albumin 2.9 L (3.5-5.0) g/dL - ABG Interpretation ABG results: ABG ABG pH 7.45 pH Units (7.32-7.45) 05/07/17 18:00 ABG pCO2 40 mmHg (35-45) 05/07/17 18:00 ABG pO2 83 mmHg (85-104) L 05/07/17 18:00 ABG O2 Saturation 97 % (95-98) 05/07/17 18:00 Consult Discharge Plan - Plan Instructions: Chronic Obstructive Pulmonary Disease (DC), Chronic Hypertension (DC), Pneumonia (DC) Additional Instructions: Continue Augmentin for 10 days. Follow up with [facility] in 1 week for Parkinson's Disease medication management. [facility] [Primary Care Provider[facility] - Prescriptions: Amoxicillin/Clavulanate [Augmentin] 875 mg PO BIDWM 10 Days Ipratropium/Albuterol Neb [Duoneb] 3 ml IH Q4H PRN 30 Days PRN Reason: cough, congestion Nebulizer [Aeroeclipse] 1 each MC Q4H PRN 30 Days PRN Reason: cough, congestion Nebulizer Accessories [Pillow Mask] 1 each MC Q4H PRN 30 Days PRN Reason: cough, congestion PredniSONE [Deltasone] 40 mg PO DAILY 4 Days <Singh Estrada - Last Filed: 05/11/17 20:40> Date of Encounter: 05/11/17 - Assessment and plan (1) Aspiration pneumonia Current Visit: Yes Status: Acute Qualifiers: Aspiration pneumonia type: unspecified Laterality: right Lung location: upper lobe of lung Qualified Code(s): J69.0 - Pneumonitis due to inhalation of food and vomit (2) Frequent falls Current Visit: Yes Status: Acute (3) COPD (chronic obstructive pulmonary disease) Current Visit: Yes Status: Acute Qualifiers: COPD type: COPD with acute exacerbation Qualified Code(s): J44.1 - Chronic obstructive pulmonary disease with (acute) exacerbation (4) Nicotine dependence Current Visit: Yes Status: Chronic Qualifiers: Nicotine product type: cigarettes Substance use status: unspecified nicotine-induced disorder Qualified Code(s): F17.219 - Nicotine dependence, cigarettes, with unspecified nicotine-induced disorders (5) DVT prophylaxis Current Visit: Yes Status: Acute (6) Acute respiratory failure Current Visit: Yes Status: Acute Qualifiers: Respiratory failure complication: hypoxia Qualified Code(s): J96.01 - Acute respiratory failure with hypoxia (7) Acute encephalopathy Current Visit: Yes Status: Acute (8) Discharge planning issues Current Visit: Yes Status: Acute (9) Parkinsons disease Current Visit: Yes Status: Acute - Constitutional Vitals: Temp Pulse Resp BP Pulse Ox 97.9 F 79 16 149/77 90 05/11/17 19:34 05/11/17 19:34 05/11/17 19:35 05/11/17 19:34 05/11/17 19:35 Internal Medicine: Result - Labs CBC & Chem 7: 05/11/17 04:28 05/11/17 04:28 Labs: Short CBC 05/11/17 Range/Units 04:28 WBC 10.2 D (4.3-11.1) K/mcL Hgb 14.8 (12.9-16.9) g/dL Hct 45.4 (37.5-50.1) % Plt Count 124 L (140-400) K/mcL Neutrophils # 8.2 (1.6-8.9) K/mcL BMP 05/11/17 04:28 Sodium 137 Potassium 3.8 Chloride 98 Carbon Dioxide 29 BUN 23 Creatinine 1.01 Glucose 169 H Calcium 9.3 Liver Function 05/11/17 Range/Units 04:28 Total Bilirubin 0.3 (0.2-1.2) mg/dL AST 22 (5-34) Units/L ALT < 6 (0-55) Units/L Alkaline Phosphatase 39 (38-126) Units/L Albumin 2.9 L (3.5-5.0) g/dL - ABG Interpretation ABG results: ABG ABG pH 7.45 pH Units (7.32-7.45) 05/07/17 18:00 ABG pCO2 40 mmHg (35-45) 05/07/17 18:00 ABG pO2 83 mmHg (85-104) L 05/07/17 18:00 ABG O2 Saturation 97 % (95-98) 05/07/17 18:00 - Attending Attestation I examined this patient and my medical decision-making was reviewed with the Resident Physician, Dr Summers. I agree with the documented findings, disposition and treatment plan as described except to the extent set forth below. PD treatment w/ Sinemet. COPDx will ct prednisone and bronchodilators.
[2017-05-11] MEDS: Lithium Carbonate 300 MG CAPSULE PO SCH (20:24)
[2017-05-12] MEDS: methylPREDNISolone 60 MG in 0.9 % Sodium Chloride 50 ML IVPB SCH ×3 (02:47→15:52)
[2017-05-12] MEDS: Ipratropium/Albuterol Neb 3 ML IH SCH ×4 (03:51→16:15)
[2017-05-12 05:27] LABS: Basophils % 0.2 %; Hematocrit 40.8 % (37.5-50.1); Hemoglobin 13.6 g/dL (12.9-16.9); Immature Granulocytes % 1.1 % (0-4); Lymphocytes # 1.3 K/mcL (0.6-4.6); Lymphocytes % 11.7 %; Mean Corpuscular HGB Conc 33.3 g/dL (31.6-35.5); Mean Corpuscular Hemoglobin 31.2 pg (28.0-33.3); Mean Corpuscular Volume 93.6 fL (83.0-100.0); Monocytes # 0.7 K/mcL (0.0-1.3); Monocytes % 6.1 %; Neutrophils # 8.7 K/mcL (1.6-8.9); Platelet Count 121 K/mcL (140-400); Red Blood Count 4.36 M/mcL (4.19-5.50); Red Cell Distribution Width 13.2 % (11.5-14.5); Segmented Neutrophils % 80.9 %
[2017-05-12 05:41] LABS: Alanine Aminotransferase 9 Units/L (0-55); Albumin 2.8 g/dL (3.5-5.0); Albumin/Globulin Ratio 0.8 (1.1-2.2); Alkaline Phosphatase 36 Units/L (38-126); Aspartate Amino Transferase 20 Units/L (5-34); BUN/Creatinine Ratio 25 (6-26); Bilirubin,Total 0.3 mg/dL (0.2-1.2); Blood Urea Nitrogen 22 mg/dL (8-26); Calcium 9.1 mg/dL (8.6-10.8); Chloride 102 mEq/L (98-109); Globulin 3.6 g/dL (2.4-3.5); Glucose 132 mg/dL (70-99); Osmolality,Calculated 291 (280-300); Sodium 138 mEq/L (136-145); Total Protein 6.4 g/dL (6.0-8.3); eGFR For African Americans > 60 (> 60); eGFR For Non-African Americans > 60 (> 60)
[2017-05-12] MEDS: *HR* Enoxaparin 40 MG/0.4 ML SYRINGE SQ SCH (05:45)
[2017-05-12 05:50] LABS: Platelet Estimate Slight Decrease (Normal); Reactive Lymphocytes Present (Not Present)
[2017-05-12 06:18] LABS: Carbon Dioxide 29 mEq/L (19-29)
[2017-05-12] MEDS: Divalproex (12 HR) 500 MG TABLET PO SCH (08:19)
[2017-05-12] MEDS: amLODIPine 5 MG TABLET PO SCH (08:19)
[2017-05-12] MEDS: Gabapentin 100 MG CAPSULE PO SCH ×2 (08:19→15:52)
[2017-05-12] MEDS: Carbidopa/Levodopa 25/100 TABLET PO SCH ×2 (08:19→15:52)
[2017-05-12] MEDS: *HR* Acetylcysteine 20% 600 MG/3 ML ORAL SYRINGE PO SCH (08:20)
[2017-05-12 17:02] VITALS: BP 154/81
== END 2017-05-12 18:15 | DRG 56 ==
LOC: 3BNU 21:53 → EMEROO 21:53 → 3BNU 05-06 00:37 → SUATTDRO 05-06 02:23 → ICNU 05-07 17:22 → 3ANU 05-09 09:54
PROVIDERS: ADMIT Internal Medicine; ATTEND Internal Medicine

== ENCOUNTER 2017-06-03 23:06 | Inpatient (IN) ==
[2017-06-03 23:47] LABS: Basophils % 0.2 %; Eosinophils # 0.2 K/mcL (0.0-0.6); Eosinophils % 2.1 %; Hematocrit 41.6 % (37.5-50.1); Hemoglobin 13.5 g/dL (12.9-16.9); Immature Granulocytes % 1.1 % (0-4); Lymphocytes # 2.3 K/mcL (0.6-4.6); Lymphocytes % 27.4 %; Mean Corpuscular HGB Conc 32.5 g/dL (31.6-35.5); Mean Corpuscular Hemoglobin 30.7 pg (28.0-33.3); Mean Corpuscular Volume 94.5 fL (83.0-100.0); Mean Platelet Volume 11.1 fL (9.4-12.4); Monocytes # 0.7 K/mcL (0.0-1.3); Monocytes % 7.7 %; Neutrophils # 5.2 K/mcL (1.6-8.9); Red Cell Distribution Width 14.6 % (11.5-14.5); Segmented Neutrophils % 61.5 %
[2017-06-03 23:49] LABS: Platelet Count 89 K/mcL (140-400)
[2017-06-03 23:53] LABS: Immature Platelets 10.5 % (1.1-6.1); Prothrombin Time 10.6 Seconds (9.4-12.1)
--- NOTE | 2017-06-03 23:55 | Emergency Department Note ---
Disposition Clinical Impression: Abnormal head CT, Hyponatremia Altered mental status Qualifiers: Altered mental status type: disorientation Qualified Code(s): R41.0 - Disorientation, unspecified Disposition: Admitted As Inpatient Condition: Fair Forms: ED Satisfaction Letter Dizziness HPI - General Chief Complaint: ED Dizziness Stated Complaint: dizziness Time Seen by Provider: 06/03/17 23:13 Source: patient, EMS Mode of arrival: EMS Limitations: altered mental status (mi) Nursing Notes Reviewed: Yes Vital Signs Reviewed: Yes - History of Present Illness Pt Subjective Complaint: dizziness, lightheadedness Onset (ago): day(s) Timing: intermittent Description: lightheadedness, off-balance, other ("fell a couple of times") History of similar episodes: Yes (frequent falls lately, but the light headedness is new) History of trauma: No (Patient states that he caught himself before hitting the ground) Severity: mild, now resolved Improves with: nothing Worsens with: nothing Associated symptoms: Reports: ataxia. Denies: chest pain, confusion (patient denies feeling confused, but assistednursing home social worker sates that patient has been "a little confused all day"), diaphoresis, fever, chills, malaise, rash, shortness of breath, syncope, weakness, vision changes, nausea, vomiting, palpitations - Related Data Home Medications Medication Instructions Recorded Confirmed Albuterol Sulfate [Proair Hfa] 1 - 2 puff IH Q6H PRN 05/06/17 06/04/17 Benztropine Mesylate 0.5 mg PO QAM 05/06/17 06/04/17 Benztropine Mesylate 1 mg PO HS 05/06/17 06/04/17 Divalproex (24 HR) [Depakote ER 500 mg PO BID 05/06/17 06/04/17 (24 HR)] Gabapentin [Neurontin] 200 mg PO TID 05/06/17 06/04/17 Levothyroxine [Synthroid] 100 mcg PO DAILY 05/06/17 06/04/17 [place]rop Carbonate 600 mg PO HS 05/06/17 06/04/17 Tiotropium [Spiriva] 18 mcg IH DAILY 05/06/17 06/04/17 Previous Rx's Medication Instructions Recorded HYDROcodone/Acet 5/325 mg [[place] 1 tab PO Q6HR PRN #0 tablet 07/06/17 5-325 mg] Allergies Allergy/AdvReac Type Severity Reaction Status Date / Time nicotine patches Allergy Rash Uncoded 06/03/17 23:07 All systems ED: reviewed and negative except as stated. Constitutional: Denies: fever, chills, weakness Eyes: Denies: eye pain, eye discharge, vision change ENT ED: Denies: ear pain, throat pain, congestion, dysphagia Cardiovascular: Denies: chest pain, palpitations, dyspnea on exertion Respiratory: Denies: cough, dyspnea, wheezes Gastrointestinal: Denies: abdominal pain, nausea, vomiting Musculoskeletal: Reports: back pain (chronic, intermittent, unchanged compared to previous). Denies: neck pain, joint swelling Integumentary: Denies: rash, lesions Neurological: Denies: headache, weakness, numbness, paresthesias Hematological/Lymphatic: Denies: easy bleeding, easy bruising Past Medical History - Past Medical History Attestation: Yes The following information was validated with the patient. Source: patient Medical history: Reports: COPD, thyroid disease Surgical history: Reports: non-contributory Psychiatric history: Reports: anxiety, bipolar, depression - Social History Smoking Status: Current every day smoker Smokeless Tobacco Status: No Alcohol use: Reports: none Drug use: Reports: none Physical Exam - General Limitations: no limitations General appearance: alert, in no apparent distress - Head Head exam: atraumatic, normocephalic, normal inspection - Eye Eye exam: Present: normal appearance, PERRL, EOMI. Absent: scleral icterus, conjunctival injection, nystagmus, miosis, mydriasis, periorbital swelling, periorbital tenderness - ENT ENT exam: mucous membranes dry - Neck Neck exam: Present: normal inspection, full ROM, trachea midline. Absent: meningismus - Chest Chest inspection: Present: normal inspection - Respiratory Respiratory exam: Present: normal lung sounds bilaterally. Absent: respiratory distress, wheezes, stridor, accessory muscle use, prolonged expiratory phase - Cardiovascular Cardiovascular exam: Present: regular rate, normal rhythm, normal heart sounds - Abdominal Exam Abdominal exam: Present: soft, Non-Tender. Absent: distention, guarding, rebound, rigidity, mass - Extremities Exam Extremities exam: Present: normal inspection, full ROM, normal capillary refill. Absent: pedal edema, joint swelling - Expanded Lower Extremity Exam Gait: not tested/not observed - Back Exam Back exam: Present: normal inspection. Absent: tenderness - Neurological Exam Neurological exam: Present: alert, reflexes normal. Absent: motor sensory deficit - Expanded Neurological Exam Patient oriented to: Present: person, place Speech: Present: fluid speech Cranial nerves: EOM function (II, III, IV, ): Normal, facial sensation (V): Normal, facial palsy (VII): Normal, gag reflex (IX): Normal, spinal accessory function (XI): Normal, tongue deviation (XII): Normal Cerebellar function: finger to nose: Normal, heel to jackson: Normal Motor strength - LUE: 4/5 Motor strength - RUE: 4/5 Motor strength - LLE: 4/5 Motor strength - RLE: 4/5 Upper motor neuron exam: ruthy neglect: Absent bilaterally, pronator drift: Absent bilaterally, sensory extinction: Absent bilaterally Sensory exam upper extremity: light touch: Normal Sensory exam lower extremity: pin prick: Normal Coma Scale Eye Opening: Spontaneous Coma Scale Motor Response: Obeys Commands Coma Scale Verbal Response: Confused Coma Scale Total: 14 - Psychiatric Psychiatric exam: Present: normal affect, normal mood - Skin Skin exam: Present: warm, dry, intact, normal color Course Course Narrative: Patient was brought in by squad for evaluation of dizziness and falling. EMS reported that the patient has had complaints of dizziness off and on all day today and he has fallen. He was started on a new pain medication recently. Patient states that he started this medication earlier today and that he has felt dizzy intermittently throughout the day. Patient has a poor historian and is confused about the year. He seems somnolent. He denies pain anywhere at this time. He states that he has been falling a lot recently and that he was admitted for that here. He went to a care home for a week and a half and was started on pain medicine for back pain while he was there. He was given a prescription for this and according to the assisted caregivers, he started this medication yesterday. Spoke with Zaid Florinda Zamudio, who is the vending route driver and caregiver at the assisted. He states that the patient has had mild confusion , complaints of dizziness and has been unsteady all day today. The patient fell around 10 PM, which is what prompted Mr. Zamudio to call EMS. Patient denies any injuries from the fall. He states that he was able to catch himself , though he cannot recall on what. CT of the head and labs have been ordered. Patient denies any pain or complaints at this time. CT shows an area of low attenuation - different from previous - ischemia considered. MRI recommended. CXR - no acute abnormality. LAbs show hyponatremia. U/A pending. Patient has been seen by Dr Laughlin. she agrees with the assessment and plan to admit. Case discussed with the hospitalist. He accepts the patient. Vital Signs Temperature 98.2 F 06/03/17 23:08 Pulse Rate 68 06/03/17 23:08 Respiratory Rate 16 06/03/17 23:08 Blood Pressure 120/92 06/03/17 23:08 O2 Sat by Pulse Oximetry 93 06/03/17 23:08 Temperature 98.2 F 06/03/17 23:08 Pulse Rate 62 06/04/17 01:25 Respiratory Rate 16 06/04/17 01:25 Blood Pressure 117/66 06/04/17 01:25 O2 Sat by Pulse Oximetry 95 06/04/17 01:25 Oxygen Delivery Oxygen Delivery Room Air Dizziness - Medical Records Medical records reviewed: Yes I reviewed the patient's medical records. - Lab Data Lab results reviewed: Yes I reviewed the patient's lab results. Lab results narrative: Laboratory Last Values WBC 8.5 K/mcL (4.3-11.1) 06/03/17 23:40 RBC 4.40 M/mcL (4.19-5.50) 06/03/17 23:40 Hgb 13.5 g/dL (12.9-16.9) 06/03/17 23:40 Hct 41.6 % (37.5-50.1) 06/03/17 23:40 MCV 94.5 fL (83.0-100.0) 06/03/17 23:40 MCH 30.7 pg (28.0-33.3) 06/03/17 23:40 MCHC 32.5 g/dL (31.6-35.5) 06/03/17 23:40 RDW 14.6 % (11.5-14.5) H 06/03/17 23:40 Plt Count 89 K/mcL (140-400) L 06/03/17 23:40 MPV 11.1 fL (9.4-12.4) 06/03/17 23:40 Immature Gran % 1.1 % (0-4) 06/03/17 23:40 Seg Neutrophils % 61.5 % 06/03/17 23:40 Lymphocytes % 27.4 % 06/03/17 23:40 Monocytes % 7.7 % 06/03/17 23:40 Eosinophils % 2.1 % 06/03/17 23:40 Basophils % 0.2 % 06/03/17 23:40 Neutrophils # 5.2 K/mcL (1.6-8.9) 06/03/17 23:40 Lymphocytes # 2.3 K/mcL (0.6-4.6) 06/03/17 23:40 Monocytes # 0.7 K/mcL (0.0-1.3) 06/03/17 23:40 Eosinophils # 0.2 K/mcL (0.0-0.6) 06/03/17 23:40 Basophils # 0.0 K/mcL (0.0-0.2) 06/03/17 23:40 Immature Plt Fraction 10.5 % (1.1-6.1) H 06/03/17 23:40 PT 10.6 Seconds (9.4-12.1) 06/03/17 23:40 INR 1.0 06/03/17 23:40 Sodium 132 mEq/L (136-145) L 06/03/17 23:40 Potassium 4.1 mEq/L (3.5-4.5) 06/03/17 23:40 Chloride 98 mEq/L (98-109) 06/03/17 23:40 Carbon Dioxide 25 mEq/L (19-29) 06/03/17 23:40 BUN 13 mg/dL (8-26) 06/03/17 23:40 Creatinine 0.92 mg/dL (0.72-1.25) 06/03/17 23:40 Est GFR ( Amer) > 60 (> 60) 06/03/17 23:40 Est GFR (Non-Af Amer) > 60 (> 60) 06/03/17 23:40 BUN/Creatinine Ratio 14 (6-26) 06/03/17 23:40 Glucose 80 mg/dL (70-99) 06/03/17 23:40 Calculated Osmolality 273 (280-300) L 06/03/17 23:40 Calcium 9.0 mg/dL (8.6-10.8) 06/03/17 23:40 Total Bilirubin 0.6 mg/dL (0.2-1.2) 06/03/17 23:40 AST 37 Units/L (5-34) H 06/03/17 23:40 ALT 49 Units/L (0-55) 06/03/17 23:40 Alkaline Phosphatase 43 Units/L (38-126) 06/03/17 23:40 Troponin I 0.00 ng/mL (0-0.03) 06/03/17 23:40 Serum Total Protein 6.4 g/dL (6.0-8.3) 06/03/17 23:40 Albumin 3.3 g/dL (3.5-5.0) L 06/03/17 23:40 Globulin 3.1 g/dL (2.4-3.5) 06/03/17 23:40 Albumin/Globulin Ratio 1.1 (1.1-2.2) 06/03/17 23:40 Valproic Acid 38.29 mcg/mL (50-100) L 06/03/17 23:40 Northrop 0.8 mEq/L (0.6-1.2) 06/03/17 23:40 Result diagrams: 06/03/17 23:40 06/03/17 23:40 Lab Results 06/03/17 06/03/17 06/03/17 Range/Units 23:40 23:40 23:40 WBC 8.5 (4.3-11.1) K/mcL RBC 4.40 (4.19-5.50) M/mcL Hgb 13.5 (12.9-16.9) g/dL Hct 41.6 (37.5-50.1) % MCV 94.5 (83.0-100.0) fL MCH 30.7 (28.0-33.3) pg MCHC 32.5 (31.6-35.5) g/dL RDW 14.6 H (11.5-14.5) % Plt Count 89 L (140-400) K/mcL MPV 11.1 (9.4-12.4) fL Immature Gran % 1.1 (0-4) % Seg Neutrophils % 61.5 % Lymphocytes % 27.4 % Monocytes % 7.7 % Eosinophils % 2.1 % Basophils % 0.2 % Neutrophils # 5.2 (1.6-8.9) K/mcL Lymphocytes # 2.3 (0.6-4.6) K/mcL Monocytes # 0.7 (0.0-1.3) K/mcL Eosinophils # 0.2 (0.0-0.6) K/mcL Basophils # 0.0 (0.0-0.2) K/mcL Immature Plt Fraction 10.5 H (1.1-6.1) % PT 10.6 (9.4-12.1) Seconds INR 1.0 Sodium 132 L (136-145) mEq/L Potassium 4.1 (3.5-4.5) mEq/L Chloride 98 (98-109) mEq/L Carbon Dioxide 25 (19-29) mEq/L BUN 13 (8-26) mg/dL Creatinine 0.92 (0.72-1.25) mg/dL Est GFR ( Amer) > 60 (> 60) Est GFR (Non-Af Amer) > 60 (> 60) BUN/Creatinine Ratio 14 (6-26) Glucose 80 (70-99) mg/dL Calculated Osmolality 273 L (280-300) Calcium 9.0 (8.6-10.8) mg/dL Total Bilirubin 0.6 (0.2-1.2) mg/dL AST 37 H (5-34) Units/L ALT 49 (0-55) Units/L Alkaline Phosphatase 43 (38-126) Units/L Troponin I (0-0.03) ng/mL Serum Total Protein 6.4 (6.0-8.3) g/dL Albumin 3.3 L (3.5-5.0) g/dL Globulin 3.1 (2.4-3.5) g/dL Albumin/Globulin Ratio 1.1 (1.1-2.2) Valproic Acid 38.29 L (50-100) mcg/mL [place] (0.6-1.2) mEq/L 06/03/17 06/03/17 Range/Units 23:40 23:40 WBC (4.3-11.1) K/mcL RBC (4.19-5.50) M/mcL Hgb (12.9-16.9) g/dL Hct (37.5-50.1) % MCV (83.0-100.0) fL MCH (28.0-33.3) pg MCHC (31.6-35.5) g/dL RDW (11.5-14.5) % Plt Count (140-400) K/mcL MPV (9.4-12.4) fL Immature Gran % (0-4) % Seg Neutrophils % % Lymphocytes % % Monocytes % % Eosinophils % % Basophils % % Neutrophils # (1.6-8.9) K/mcL Lymphocytes # (0.6-4.6) K/mcL Monocytes # (0.0-1.3) K/mcL Eosinophils # (0.0-0.6) K/mcL Basophils # (0.0-0.2) K/mcL Immature Plt Fraction (1.1-6.1) % PT (9.4-12.1) Seconds INR Sodium (136-145) mEq/L Potassium (3.5-4.5) mEq/L Chloride (98-109) mEq/L Carbon Dioxide (19-29) mEq/L BUN (8-26) mg/dL Creatinine (0.72-1.25) mg/dL Est GFR ( Amer) (> 60) Est GFR (Non-Af Amer) (> 60) BUN/Creatinine Ratio (6-26) Glucose (70-99) mg/dL Calculated Osmolality (280-300) Calcium (8.6-10.8) mg/dL Total Bilirubin (0.2-1.2) mg/dL AST (5-34) Units/L ALT (0-55) Units/L Alkaline Phosphatase (38-126) Units/L Troponin I 0.00 (0-0.03) ng/mL Serum Total Protein (6.0-8.3) g/dL Albumin (3.5-5.0) g/dL Globulin (2.4-3.5) g/dL Albumin/Globulin Ratio (1.1-2.2) Valproic Acid (50-100) mcg/mL [place] 0.8 (0.6-1.2) mEq/L - Radiology Data Radiology results reviewed: Yes I reviewed the patient's radiology results. Chest X-Ray 06/03/17 23:13 IMPRESSION: Mild bibasilar atelectasis secondary to incomplete inspiration. D/ / Malik Rocha MD / Malik Rocha MD Interpreting Provider: Malik Rocha MD Head CT 06/03/17 23:13 IMPRESSION: No acute intracranial hemorrhage is appreciated. Low area of low attenuation within left midbrain region which appears more conspicuous compared to prior study. An area of ischemic change is considered and follow-up MRI is recommended. D/ / Jason Echevarria MD / Jason Echevarria MD Interpreting Provider: Jason Echevarria MD - EKG Data EKG attestation: Yes I reviewed and interpreted this EKG. EKG shows normal: sinus rhythm Rate: normal Rhythm: PAC's [place]/QRS: normal When compared to previous EKG there are: no significant changes Interpretation: normal EKG, unchanged when compared to prior tracing (date)
[2017-06-04 00:01] LABS: Alanine Aminotransferase 49 Units/L (0-55); Albumin 3.3 g/dL (3.5-5.0); Albumin/Globulin Ratio 1.1 (1.1-2.2); Alkaline Phosphatase 43 Units/L (38-126); Aspartate Amino Transferase 37 Units/L (5-34); BUN/Creatinine Ratio 14 (6-26); Bilirubin,Total 0.6 mg/dL (0.2-1.2); Blood Urea Nitrogen 13 mg/dL (8-26); Carbon Dioxide 25 mEq/L (19-29); Chloride 98 mEq/L (98-109); Globulin 3.1 g/dL (2.4-3.5); Glucose 80 mg/dL (70-99); Osmolality,Calculated 273 (280-300); Potassium 4.1 mEq/L (3.5-4.5); Sodium 132 mEq/L (136-145); Total Protein 6.4 g/dL (6.0-8.3); eGFR For African Americans > 60 (> 60); eGFR For Non-African Americans > 60 (> 60)
[2017-06-04 00:08] LABS: Valproate 38.29 mcg/mL (50-100)
--- NOTE | 2017-06-04 02:36 | Emergency Department Note ---
START Narrative - START START: I examined this patient and my medical decision-making was reviewed with the Resident Physician. I agree with the documented findings, disposition and treatment plan as described except to the extent set forth below. Patient to the emergency department with confusion and dizziness. Sent from his custodial. Exam shows him laying in bed in no distress. Patient is not felt well. Lungs clear. Moving all extremities. Plan. The patient's symptoms started over 12 hours ago. He is a CT scan that shows an area of possible ischemia in his mid brain. Admit to medicine.
[2017-06-04] MEDS ORDERED: Naloxone 0.4 MG/ML INJ IVP PRN (02:52)
[2017-06-04] MEDS ORDERED: Ibuprofen 400 MG TABLET PO PRN (02:52)
[2017-06-04] MEDS ORDERED: Acetaminophen 325 MG TABLET PO PRN (02:52)
[2017-06-04] MEDS ORDERED: traMADol 50 MG TABLET PO PRN (02:56)
--- NOTE | 2017-06-04 03:02 | Internal Med History&Physical ---
Date of Encounter: 06/04/17 Time of Encounter: 02:57 Assessment and Plan (1) Hyponatremia Current visit: Yes Status: Acute IVF hydration, trend Na (2) Acute encephalopathy Current visit: No Status: Acute likely 2/2 polypharmacy - norco AND metabolic with low NA prompting admission to inpatient status needing IVF. CT head with some increase old changes seen but exam non-focal. (3) Fall Current visit: Yes Status: Acute optimize NA and medication, PT eval for ambulatory eval. High risk for further falls and associated morbidity/mortality Qualifiers: Qualified Code(s): W19.XXXA - Unspecified fall, initial encounter (4) COPD (chronic obstructive pulmonary disease) Current visit: No Status: Acute stable Qualifiers: COPD type: COPD with acute exacerbation Qualified Code(s): J44.1 - Chronic obstructive pulmonary disease with (acute) exacerbation (5) Parkinson disease Current visit: No Status: Acute continue med (6) Seizure disorder Current visit: No Status: Acute continue med Internal Medicine - H&P: HPI Chief complaint: Fall, dizziness History of present illness: Mr. Alejandra is a 72 year old male with hx of psych disorder, parkinonism, seizure hx, COPD who presents with acute fall in setting of dizziness. He has a hx of recurrent frequent falls and was admitted here recently and underwent neuro eval before transitioning to a SNF for 1-2 weeks. He had recently returned to his skilled nursing for [facility] care. Recently, he had been started on norco for back pain and he felt as if the norco in combination with his current medications have been making him feel dizzy. Last evening at around 10pm, while he was ambulating to his room, he fell and hit his hit. Reports from his home staff suggested that he had been confused as well. In the ED, CXR and UA appears w/o acute findings, valproate and lithium level were wnl. However, he was found to be hyponatremia which prompted inpatient admission and for further risk optimization of his recurrent falls. Past Med Surg Social Fam HX - Past Medical History Medical history: COPD, thyroid disease Psychiatric history: anxiety, bipolar, depression - Past Surgical History Surgical History: non-contributory - Social History Smoking Status: Current every day smoker Smokeless Tobacco Status: No Alcohol use: none Drug use: none Internal Medicine - H&P: Meds Albuterol Sulfate [Proair Hfa] 1 - 2 puff IH Q6H PRN 05/06/17 [History] Benztropine Mesylate 0.5 mg PO QAM 05/06/17 [History] Benztropine Mesylate 1 mg PO HS 05/06/17 [History] Divalproex (24 HR) [Depakote ER (24 HR)] 500 mg PO BID 05/06/17 [History] Gabapentin [Neurontin] 200 mg PO TID 05/06/17 [History] Levothyroxine [Synthroid] 100 mcg PO DAILY 05/06/17 [History] [place] Carbonate 600 mg PO HS 05/06/17 [History] Tiotropium [Spiriva] 18 mcg IH DAILY 05/06/17 [History] HYDROcodone/Acet 5/325 mg [[place] 5-325 mg] 1 tab PO Q6HR PRN #0 tablet 05/11/17 [Rx] Allergies nicotine patches Allergy (Uncoded 06/03/17 23:07) Rash All Systems PM: A 10-system review of systems was performed and is negative for pertinent findings except as documented above in the HPI. Review of systems: ROS 14 point review of systems reviewed as best as possible given presentation. Pertinent positive or negative as per HPI or otherwise reviewed as negative - Constitutional Vitals: Temp Pulse Resp BP Pulse Ox 98.2 F 62 16 117/66 95 06/03/17 23:08 06/04/17 01:25 06/04/17 01:25 06/04/17 01:25 06/04/17 01:25 Exam: General - AAO x 3 Psych - Appropriate affect/speech. No agitation Eyes - ZAHRA. Eye lids intact. No scleral icterus ENT - Oral mucosa pink, dentition intact. External ear clear/dry/intact. No thyromegaly Lymphatics - No cervical/inguinal lympadenopathy Neuro - No gross peripheral or central neuro deficits with intact CN 2-12 exam Heart - Sinus. RRR. S1 and S2 present. No added HS/murmurs appreciated. No elevated JVD appreciated. No calf swellings/erythema Lung - Adequate air entry b/l, No crackes/wheezes appreciated GI - Soft, non-tender. No hepatosplenomegaly/ascities. BS+ - No CVA/suprapubic tenderness or palpable bladder distension Skin - Intact. No rash/petechiae/ecchymosis. Warm extremities MSK - Joints with normal ROM. No joint swellings Internal Med - H&P Results - Labs CBC & Chem 7: 06/03/17 23:40 06/03/17 23:40
[2017-06-04 03:14] LABS: Bilirubin,Urine Negative (Negative); Blood,Urine Negative (Negative); Clarity,Urine Clear (Clear); Color,Urine Yellow (Yellow); Glucose,Urine (UA) Normal (Normal); Ketones,Urine Negative (Negative); Leukocyte Esterase,Urine Negative (Negative); Nitrite,Urine Negative (Negative); PH,Urine 7.5 pH Units (5.0-8.0); Protein,Urine Negative (Neg-Trace); Specific Gravity,Urine 1.005 (1.010-1.025); Urobilinogen,Urine Normal (Normal)
[2017-06-04 03:21] LABS: Amphetamine Screen,Urine Negative ng/mL (Cutoff=1000); Barbiturate Screen,Urine Negative ng/mL (Cutoff=200); Benzodiazepines Screen,Urine Negative ng/mL (Cutoff=200); Cannabinoid Screen,Urine Negative ng/mL (Cutoff = 50); Cocaine Screen,Urine Negative ng/mL (Cutoff= 300); Opiate Screen,Urine Negative ng/mL (Cutoff=300); Phencyclidine Screen,Urine Negative ng/mL (Cutoff=25)
[2017-06-04] MEDS: 0.9 % Sodium Chloride 1,000 ML IVC SCH ×2 (04:28→15:54)
[2017-06-04] MEDS: *HR* Enoxaparin 30 MG/0.3 ML SYRINGE SQ SCH ×2 (06:24→17:41)
[2017-06-04 07:25] LABS: Basophils % 0.4 %; Eosinophils % 3.4 %; Red Cell Distribution Width 14.6 % (11.5-14.5)
[2017-06-04 07:27] LABS: Eosinophils # 0.3 K/mcL (0.0-0.6); Hematocrit 38.6 % (37.5-50.1); Hemoglobin 12.5 g/dL (12.9-16.9); Immature Granulocytes % 1.2 % (0-4); Immature Platelets 9.9 % (1.1-6.1); Lymphocytes # 2.5 K/mcL (0.6-4.6); Lymphocytes % 32.7 %; Mean Corpuscular HGB Conc 32.4 g/dL (31.6-35.5); Mean Corpuscular Hemoglobin 30.9 pg (28.0-33.3); Mean Corpuscular Volume 95.3 fL (83.0-100.0); Mean Platelet Volume 11.3 fL (9.4-12.4); Monocytes # 0.7 K/mcL (0.0-1.3); Monocytes % 8.5 %; Neutrophils # 4.1 K/mcL (1.6-8.9); Platelet Count 90 K/mcL (140-400); Red Blood Count 4.05 M/mcL (4.19-5.50); Segmented Neutrophils % 53.8 %
[2017-06-04 07:38] LABS: BUN/Creatinine Ratio 10 (6-26); Blood Urea Nitrogen 9 mg/dL (8-26); Calcium 8.8 mg/dL (8.6-10.8); Carbon Dioxide 26 mEq/L (19-29); Chloride 102 mEq/L (98-109); Glucose 70 mg/dL (70-99); Osmolality,Calculated 277 (280-300); Potassium 3.8 mEq/L (3.5-4.5); Sodium 135 mEq/L (136-145); eGFR For African Americans > 60 (> 60); eGFR For Non-African Americans > 60 (> 60)
[2017-06-04] MEDS: Gabapentin 100 MG CAPSULE PO SCH ×3 (10:14→20:59)
[2017-06-04] MEDS: Divalproex (12 HR) 500 MG TABLET PO SCH ×2 (10:14→20:59)
[2017-06-04] MEDS: Tiotropium 18 MCG inhalation IH SCH (10:30)
--- NOTE | 2017-06-04 10:48 | Event Note ---
Date of Encounter: 06/04/17 Time of Encounter: 09:15 Patient seen and examined. On examination, patient is sitting upright in bed watching television. He is alert and oriented 3. Patient stating he feels generally weak and all of his limbs. He denies dizziness. He states he was able to ambulate to and from the bathroom but states he does not feel safe if he were to have to ambulate longer distances. He states he is eating well but states she would like assistance eating given his tremors and states that he has difficulty eating and drinking. On examination, pie maker strength equal, leg strength 5 over 5 bilaterally. Constant tremor noted-he has a history of parkinsonism. Chest x-ray negative. Head CT with possible ischemia, MRI ordered-will be done tomorrow on a nonemergent basis. Urinalysis negative. Tox screen negative. OT and PT consultations are pending as well. Patient was recently discharged to [facility] for ECF placement and he had been home at his fdc for 3 days. He states that yesterday, his medications were changed and he states that 3 pain pills were added yesterday and patient stating "they knocked me on my ass." In review of his OARRS report, on 06/02/17, he was prescribed hydrocodone-acetaminophen 5-325 every 6 hours as well as oxycodone 5 mg with enough quantity for 8 times a day. Of note, there were no prior control substances prescriptions for the past year. Patient stating his pain is currently controlled, currently acetaminophen, ibuprofen, and Ultram are ordered. We will monitor. MRI tomorrow. OT and PT consultations as well. ITS Impressions Chest X-Ray 06/03/17 23:13 IMPRESSION: Mild bibasilar atelectasis secondary to incomplete inspiration. D/ / Malik Rocha MD / Malik Rocha MD Interpreting Provider: Malik Rocha MD Head CT 06/03/17 23:13 IMPRESSION: No acute intracranial hemorrhage is appreciated. Low area of low attenuation within left midbrain region which appears more conspicuous compared to prior study. An area of ischemic change is considered and follow-up MRI is recommended. D/ / Jason Echevarria MD / Jason Echevarria MD Interpreting Provider: Jason Echevarria MD
--- NOTE | 2017-06-04 19:03 | Electrocardiograph Report ---
[place] [id number] Test Date: 2017-06-03 Pat Name: Rl Alejandra Department: 105 Room: 3B Gender: M Splunk Developer: : [id number] Requested By: Kathleen Justice Order Number: [id number] Reading MD: Bijan Nicole MD Measurements Intervals [place] Rate: 71 P: 72 AK: 155 QRS: 35 QRSD: 102 T: 43 QT: 381 QTc: 404 Interpretive Statements SINUS RHYTHM WITH OCCASIONAL VENTRICULAR PREMATURE COMPLEXES Electronically Signed On 06-04-2017 19:01:29 EDT by Bijan Nicole MD
[2017-06-04] MEDS: Lithium Carbonate 300 MG CAPSULE PO SCH (20:59)
[2017-06-05] MEDS: 0.9 % Sodium Chloride 1,000 ML IVC SCH ×3 (02:14→17:09)
[2017-06-05 04:37] LABS: BUN/Creatinine Ratio 15 (6-26); Blood Urea Nitrogen 14 mg/dL (8-26); Calcium 7.9 mg/dL (8.6-10.8); Carbon Dioxide 27 mEq/L (19-29); Chloride 109 mEq/L (98-109); Glucose 92 mg/dL (70-99); Osmolality,Calculated 286 (280-300); Sodium 138 mEq/L (136-145); eGFR For African Americans > 60 (> 60); eGFR For Non-African Americans > 60 (> 60)
[2017-06-05] MEDS: *HR* Enoxaparin 30 MG/0.3 ML SYRINGE SQ SCH ×2 (05:58→17:09)
[2017-06-05] MEDS: Tiotropium 18 MCG inhalation IH SCH (08:29)
[2017-06-05] MEDS: Gabapentin 100 MG CAPSULE PO SCH ×3 (08:30→22:08)
[2017-06-05] MEDS: Divalproex (12 HR) 500 MG TABLET PO SCH (08:30)
--- NOTE | 2017-06-05 15:34 | Internal Med Progress Note ---
Date of Encounter: 06/05/17 Time of Encounter: 14:30 - Assessment and plan (1) Frequent falls Current Visit: No Status: Acute Assessment and plan: Patient had recently just been discharged from [facility] and was only home for 3 days. OT and PT have recommended ECF placement. Patient stating that he would like to go back to [facility]. real estate services administrator on board. MRI negative, urinalysis negative, tox screen negative, chest x-ray negative. Medically, patient is cleared for discharge once approved. ITS Impressions Chest X-Ray 06/03/17 23:13 IMPRESSION: Mild bibasilar atelectasis secondary to incomplete inspiration. D/ / Malik Rocha MD / Malik Rocha MD Interpreting Provider: Malik Rocha MD Head CT 06/03/17 23:13 IMPRESSION: No acute intracranial hemorrhage is appreciated. Low area of low attenuation within left midbrain region which appears more conspicuous compared to prior study. An area of ischemic change is considered and follow-up MRI is recommended. D/ / Jason Echevarria MD / Jason Echevarria MD Interpreting Provider: Jason Echevarria MD Brain MRI 06/05/17 09:37 IMPRESSION: 1. No acute intracranial abnormality. No acute infarct. 2. Global parenchymal volume loss. D/ / Travis Luis MD / Travis Luis MD Interpreting Provider: Travis Luis MD (2) Tremors of nervous system Current Visit: No Status: Chronic (3) COPD (chronic obstructive pulmonary disease) Current Visit: No Status: Chronic Assessment and plan: No acute exacerbation. Patient is on room air and he denies shortness of breath above his norm. Qualifiers: COPD type: unspecified COPD Qualified Code(s): J44.9 - Chronic obstructive pulmonary disease, unspecified (4) Nicotine dependence Current Visit: No Status: Chronic Assessment and plan: Declines smoking cessation counseling Qualifiers: Nicotine product type: cigarettes Substance use status: unspecified nicotine-induced disorder Qualified Code(s): F17.219 - Nicotine dependence, cigarettes, with unspecified nicotine-induced disorders (5) DVT prophylaxis Current Visit: No Status: Acute Assessment and plan: Subcutaneous Lovenox (6) Hypertension Current Visit: No Status: Chronic Assessment and plan: Controlled, will continue to trend and adjust medication as indicated. Qualifiers: Hypertension type: essential hypertension Qualified Code(s): I10 - Essential (primary) hypertension (7) Parkinson disease Current Visit: No Status: Chronic (8) Seizure disorder Current Visit: No Status: Chronic Assessment and plan: No seizure-like activity since admission, continue Depakote and Cogentin. Depakote levels are low, he is at 500 mg twice a day-we will increase his nighttime dose to 1000 mg (9) Abnormal head CT Current Visit: Yes Status: Ruled-out Assessment and plan: Ruled out-MRI negative for acute processes (10) Hyponatremia Current Visit: Yes Status: Resolved - Subjective Interval history: Patient seen and examined. On examination, patient initially asleep supine in bed and awakened easily to voice. He remained alert and oriented 3 and denies pain or shortness of breath above his norm at this time. He states he is eating normally. - Constitutional Vitals: Temp Pulse Resp BP Pulse Ox 98.1 F 65 16 157/81 94 06/05/17 11:31 06/05/17 11:31 06/05/17 11:31 06/05/17 11:31 06/05/17 11:31 General appearance: Present: A&O X 3, pleasant, no acute distress, answers questions appropriately - Head Head exam: Present: atraumatic, normocephalic - Eye Eye exam: Present: PERRL, conjuntiva pink, sclera anicteric Pupils: Present: PERRL - Neck Neck exam general surgery: Present: supple, trachea midline. Absent: lymphadenopathy - Respiratory Respiratory exam: Present: decreased breath sounds. Absent: accessory muscle use, rales, respiratory distress, rhonchi, wheezes - Cardiovascular Cardiovascular exam: Present: RRR, +S1, +S2. Absent: diastolic murmur, gallop, rubs, systolic murmur - GI/Abdominal GI/Abdominal exam: Present: normal bowel sounds, soft, no peritoneal signs. Absent: distended, tenderness - Extremities Exam Extremities exam: Present: warm, radial pulses palpable and symetrical. Absent : calf tenderness, cyanotic, pedal edema - Neurological Exam Neurological exam: Present: alert, CN II-XII intact, oriented X3, no focal deficits, strengths equal and symetr throughout. Absent: pronater drift, facial droop, speech deficit - Expanded Neurological Exam Neurological exam expanded: Present: tremor - Skin Skin exam: Present: dry, intact, pallor, warm Internal Medicine: Result - Labs CBC & Chem 7: 06/04/17 06:56 06/05/17 03:04 Labs: BMP 06/05/17 03:04 Sodium 138 Potassium 4.0 Chloride 109 Carbon Dioxide 27 BUN 14 Creatinine 0.91 Glucose 92 Calcium 7.9 L - ABG Interpretation ABG results: PT/INR, D-dimer PT 10.6 Seconds (9.4-12.1) 06/03/17 23:40 - Impressions Impressions Brain MRI 06/05/17 09:37 IMPRESSION: 1. No acute intracranial abnormality. No acute infarct. 2. Global parenchymal volume loss. D/ / Travis Luis MD / Travis Luis MD Interpreting Provider: Travis Luis MD Consult Discharge Plan - Plan [facility]errals: [facility] [Primary Care Provider[facility] -
[2017-06-05] MEDS ORDERED: Divalproex (12 HR) 500 MG TABLET PO SCH (21:00)
[2017-06-05] MEDS: Lithium Carbonate 300 MG CAPSULE PO SCH (22:09)
[2017-06-06] MEDS: *HR* Enoxaparin 30 MG/0.3 ML SYRINGE SQ SCH (05:38)
[2017-06-06] MEDS: Tiotropium 18 MCG inhalation IH SCH (08:18)
[2017-06-06] MEDS ORDERED: Divalproex (12 HR) 500 MG TABLET PO SCH (09:00)
[2017-06-06] MEDS: Gabapentin 100 MG CAPSULE PO SCH ×2 (10:01→15:45)
--- NOTE | 2017-06-06 17:42 | Discharge Summary ---
Date of Encounter: 06/06/17 Time of Encounter: 08:05 - Discharge Diagnosis (1) Frequent falls Priority: Primary Status: Acute Comments: Pt was home 3 days from [place]. Pt and OT have recommended ECF placement. Pt wants to go back to [place]. MRI brain negative, as is head CT. UA and urine tox negative, chest xray negative. Pt states that he is just "weak and shaky". He is ready to go to [place] today. Chest X-Ray 06/03/17 23:13 IMPRESSION: Mild bibasilar atelectasis secondary to incomplete inspiration. D/ / Malik Rocha MD / Malik Rocha MD Interpreting Provider: Malik Rocha MD Head CT 06/03/17 23:13 IMPRESSION: No acute intracranial hemorrhage is appreciated. Low area of low attenuation within left midbrain region which appears more conspicuous compared to prior study. An area of ischemic change is considered and follow-up MRI is recommended. D/ / Jason Echevarria MD / Jason Echevarria MD Interpreting Provider: Jason Echevarria MD Brain MRI 06/05/17 09:37 IMPRESSION: 1. No acute intracranial abnormality. No acute infarct. 2. Global parenchymal volume loss. D/ / Travis Luis MD / Travis Luis MD Interpreting Provider: Travis Luis MD (2) Tremors of nervous system Priority: Secondary Status: Chronic Comments: Chronic per pt history. (3) COPD (chronic obstructive pulmonary disease) Priority: Secondary Status: Chronic Comments: No acute exacerbation. Continue home medications at [facility]. He is not requiring supplemental 02. Lungs are clear with wheezing heard in upper anterior lung [place], pt states this is normal for him. Qualifiers: COPD type: unspecified COPD Qualified Code(s): J44.9 - Chronic obstructive pulmonary disease, unspecified (4) Nicotine dependence Priority: Secondary Status: Chronic Comments: Pt is a smoker and states that he does not want to quit at this time. Qualifiers: Nicotine product type: cigarettes Substance use status: unspecified nicotine-induced disorder Qualified Code(s): F17.219 - Nicotine dependence, cigarettes, with unspecified nicotine-induced disorders (5) DVT prophylaxis Priority: Secondary Status: Acute Comments: Lovenox Subcutaneous (6) Hypertension Priority: Secondary Status: Chronic Comments: Pt is at or slightly above goal. He does not appear to have medication for HTN on his home medication list. I will add low dose of lisinopril at discharge. Qualifiers: Hypertension type: essential hypertension Qualified Code(s): I10 - Essential (primary) hypertension (7) Parkinson disease Priority: Secondary Status: Chronic Comments: Chronic. Continue home medications. (8) Seizure disorder Priority: Secondary Status: Chronic Comments: Chronic. Continue home medications. (9) Hyponatremia Priority: Secondary Status: Resolved Comments: Sodium 138 on discharge. - Discharge Medications Prescriptions: Gabapentin [Neurontin] 200 mg PO TID #18 Lisinopril 2.5 mg PO DAILY #15 tablet Oxycodone HCl [Oxaydo] 5 mg PO Q6H #8 Home Medications: Albuterol Sulfate [Proair Hfa] 1 - 2 puff IH Q6H PRN 05/06/17 [History] Benztropine Mesylate 0.5 mg PO QAM 05/06/17 [History] Benztropine Mesylate 1 mg PO HS 05/06/17 [History] Divalproex (24 HR) [Depakote ER (24 HR)] 500 mg PO BID 05/06/17 [History] Levothyroxine [Synthroid] 100 mcg PO DAILY 05/06/17 [History] [place] Carbonate 600 mg PO HS 05/06/17 [History] Tiotropium [Spiriva] 18 mcg IH DAILY 05/06/17 [History] Primidone [Mysoline] 50 mg PO HS 06/04/17 [History] Gabapentin [Neurontin] 200 mg PO TID #18 06/06/17 [Rx] Lisinopril 2.5 mg PO DAILY #15 tablet 06/06/17 [Rx] Oxycodone HCl [Oxaydo] 5 mg PO Q6H #8 06/06/17 [Rx] Allergies/Adverse Reactions: Allergies nicotine patches Allergy (Uncoded 06/03/17 23:07) Rash Procedures/tests Complete & Pending: Procedures Performed prior 72 hours Category Date Time Status MR head/brain wo con [MR] Routine MRI 06/05/17 09:37 Completed Date of admission: 06/04/17 02:53 [facility] physician[facility] Consults: 06/04/17 02:58 Consult to Physical Therapy [CONS] Routine Comment: Evaluate, develop and implement POC Reason for Consult: fall, eval 06/04/17 07:53 Consult to Occupational Therapy [CONS] Routine Comment: Evaluate, develop and implement POC Reason for Consult: from care home, recent snf- may need placed again Consult to Instructional Coordinator [CONS] Routine Reason for SW Consult: from care home. recent snf. may need placed again Discharging clinician: Layla Rodgers Anticipated date of discharge: 06/06/17 - Patient Status Disposition: Transfer SNF Condition: Good Functional capacity at discharge: uses cane/walker Overall status at discharge: patient is progressing back to baseline - Discharge Instructions Follow Up With: [facility] [Primary Care Provider] - Additional Instructions: Follow up with F PCP. - Diet and Activity Activity: increase activity as tolerated Diet: advance to your usual diet Hospital course: Mr. Alejandra is a 72 year old male with past medical history of Parkinson's disease , seizure disorder frequent falls, COPD, tremors, nicotine dependence, acute respiratory failure, hypertension, pneumonia. He presented to the emergency department on 06/04/2017 for evaluation of dizziness and falling. Patient stated that dizziness and falling began after starting a new medication earlier on the day of admission. In the emergency department he was a poor historian was confused about the year. He seems somnolent in the emergency department. Patient was here, went to [facility] for a week and a half, and then went back to the care home where he lived for 3 days. Patient denies any injuries from the fall and that he was able to catch himself. He has remained pain-free. History chest x-ray showed mild bibasilar atelectasis secondary to incomplete inspiration. Head CT was negative for any acute intracranial hemorrhage, there is a low area of attenuation within left mid brain region and an area of ischemic change is considered. Follow-up MRI is recommended. MRI done on showed no acute intracranial abnormality, no acute infarct, global parenchymal volume loss. Patient was evaluated by PT, skilled PT services are warranted. Recommended SNF at time of discharge. Patient has been accepted at [facility] and will be going today. Patient was very shaky during exam. He was seated on the bedside commode. He did need assistance of 2 staff to get up and back to bed. Physical exam was fairly unremarkable other than tremors. He was alert and oriented 3 and his speech was clear. He is a smoker and declines smoking cessation materials or tools at this time. His vital signs have been stable. Blood pressure is slightly over goal for age. I have added low dose of lisinopril. He is not requiring any supplemental oxygen is maintaining his sats in the low 90s. His labs are within normal limits. He is stable and appropriate for discharge to [facility]. - Time Spent with Patient Total time spent providing and/or coordinating discharge services: Less than 30 minutes - Constitutional Vitals: Temp Pulse Resp BP Pulse Ox 98.1 F 73 17 170/81 91 06/06/17 15:34 06/06/17 15:34 06/06/17 15:34 06/06/17 15:34 06/06/17 15:34 General appearance: Present: cooperative, A&O X 3, pleasant, no acute distress, answers questions appropriately - Head Head exam: Present: normal inspection - Eye Eye exam: Present: normal appearance, conjuntiva pink - ENT ENT exam: Present: mucous membranes moist, normal exam, normal external ear exam - Neck Neck exam general surgery: Present: normal inspection. Absent: lymphadenopathy , tenderness - Respiratory Respiratory exam: Absent: chest wall tenderness, rales, respiratory distress, rhonchi, stridor, wheezes - Cardiovascular Cardiovascular exam: Present: RRR, +S1, +S2. Absent: diastolic murmur, systolic murmur - GI/Abdominal GI/Abdominal exam: Present: normal bowel sounds, soft. Absent: hernia, hepatomegaly, tenderness - Extremities Exam Extremities exam: Present: normal capillary refill, warm, radial pulses palpable and symetrical. Absent: pedal edema, tenderness - Neurological Exam Neurological exam: Present: alert, oriented X3, no focal deficits. Absent: facial droop, speech deficit
[2017-06-06 19:09] VITALS: BP 137/84
--- NOTE | 2017-06-06 19:20 | Physician Discharge Referral ---
ExtendedCare Referral Info Provider in Charge after Transfer: PCP Institutional Level of Care: Skilled - Diagnosis (1) Frequent falls Priority: Primary Status: Acute (2) Tremors of nervous system Priority: Secondary Status: Chronic (3) COPD (chronic obstructive pulmonary disease) Priority: Secondary Status: Chronic (4) Nicotine dependence Priority: Secondary Status: Chronic (5) DVT prophylaxis Status: Acute (6) Hypertension Priority: Secondary Status: Chronic (7) Parkinson disease Priority: Secondary Status: Chronic (8) Seizure disorder Priority: Secondary Status: Chronic (9) Hyponatremia Priority: Secondary Status: Resolved Prognosis: Good - Transfer Medications Prescriptions: Gabapentin [Neurontin] 200 mg PO TID #18 Lisinopril 2.5 mg PO DAILY #15 tablet Oxycodone HCl [Oxaydo] 5 mg PO Q6H #8 Home Medications: Albuterol Sulfate [Proair Hfa] 1 - 2 puff IH Q6H PRN 05/06/17 [History] Benztropine Mesylate 0.5 mg PO QAM 05/06/17 [History] Benztropine Mesylate 1 mg PO HS 05/06/17 [History] Divalproex (24 HR) [Depakote ER (24 HR)] 500 mg PO BID 05/06/17 [History] Levothyroxine [Synthroid] 100 mcg PO DAILY 05/06/17 [History] [place] Carbonate 600 mg PO HS 05/06/17 [History] Tiotropium [Spiriva] 18 mcg IH DAILY 05/06/17 [History] Primidone [Mysoline] 50 mg PO HS 06/04/17 [History] Gabapentin [Neurontin] 200 mg PO TID #18 06/06/17 [Rx] Lisinopril 2.5 mg PO DAILY #15 tablet 06/06/17 [Rx] Oxycodone HCl [Oxaydo] 5 mg PO Q6H #8 06/06/17 [Rx] Allergies/Adverse Reactions: Allergies nicotine patches Allergy (Uncoded 06/03/17 23:07) Rash - Respiratory Orders Smoking Cessation: Smoking cessation has been advised. For more information, call the [place] Tobacco Quit Line at 7-183-WDYU-NOW. - Lab Orders Lab Orders: CBC, U/A - Ancillary Orders May use pressure relief devices daily prn, May consult with Dentist, Power Transmission Engineer, Public Works Director PRN - Advance Directives Code Status: Full Code CERTIFICATION: I certify that the transfer of the above named patient to an Extended Care Facility is necessary for the continuing treatment of the diagnosis listed. The above information is true and accurate reflection of patient's current condition. Confidential - Redisclosure prohibited without a patient's written consent.
== END 2017-06-06 19:50 | DRG 640 ==
LOC: EMEROO 23:06 → 3BNU 06-04 02:53
PROVIDERS: ADMIT Internal Medicine; ATTEND Nurse Practitioner Family

== ENCOUNTER 2017-06-30 16:47 | Inpatient (IN) ==
--- NOTE | 2017-06-30 16:54 | Emergency Department Note ---
Disposition Clinical Impression: Delirium due to general medical condition UTI (urinary tract infection) Qualifiers: Urinary tract infection type: acute cystitis Hematuria presence: without hematuria Qualified Code(s): N30.00 - Acute cystitis without hematuria Disposition: Admitted As Inpatient Condition: Good Forms: ED Satisfaction Letter Time of Disposition: 18:38 General Adult HPI - General Chief complaint: ED Altered Mental Status Stated complaint: AMS Time Seen by Provider: 06/30/17 16:51 Nursing Notes Reviewed: Yes Vital Signs Reviewed: Yes - History of Present Illness HPI Narrative: Patient being sent from home saying his home health nurse said that he been confused for the past 2 days. Patient is nonverbal to me. - Related Data Home Medications Medication Instructions Recorded Confirmed Albuterol Sulfate [Proair Hfa] 1 - 2 puff IH Q6H PRN 05/06/17 06/04/17 Benztropine Mesylate 0.5 mg PO QAM 05/06/17 06/04/17 Benztropine Mesylate 1 mg PO HS 05/06/17 06/04/17 Divalproex (24 HR) [Depakote ER 500 mg PO BID 05/06/17 06/04/17 (24 HR)] Levothyroxine [Synthroid] 100 mcg PO DAILY 05/06/17 06/04/17 [place] Carbonate 600 mg PO HS 05/06/17 06/04/17 Tiotropium [Spiriva] 18 mcg IH DAILY 05/06/17 06/04/17 Primidone [Mysoline] 50 mg PO HS 06/04/17 06/04/17 Previous Rx's Medication Instructions Recorded Gabapentin [Neurontin] 200 mg PO TID #18 06/06/17 Lisinopril 2.5 mg PO DAILY #15 tablet 06/06/17 Oxycodone HCl [Oxaydo] 5 mg PO Q6H #8 06/06/17 Orphenadrine [Norflex] 100 mg PO BID #7 tablet.er 06/13/17 Allergies Allergy/AdvReac Type Severity Reaction Status Date / Time nicotine patches Allergy Rash Uncoded 06/03/17 23:07 Limitations: ROS unobtainable due to patients medical condition Past Medical History - Past Medical History Attestation: Yes The following information was validated with the patient. Source: patient Medical history: Reports: COPD, thyroid disease, other Surgical history: Reports: non-contributory Psychiatric history: Reports: anxiety, bipolar, depression - Social History Smoking Status: Current every day smoker Smokeless Tobacco Status: No Alcohol use: Reports: none Drug use: Reports: none Physical Exam - General Limitations: altered mental status General appearance: alert - Head Head exam: atraumatic, normocephalic, normal inspection - Eye Eye exam: Present: normal appearance, PERRL, EOMI. Absent: scleral icterus - ENT ENT exam: normal exam, normal oropharynx, mucous membranes moist - Neck Neck exam: Present: normal inspection, full ROM, trachea midline. Absent: tenderness, meningismus, lymphadenopathy - Chest Chest inspection: Present: normal inspection, symmetric chest wall rise - Respiratory Respiratory exam: Present: normal lung sounds bilaterally. Absent: respiratory distress - Cardiovascular Cardiovascular exam: Present: regular rate, normal rhythm, normal heart sounds - Abdominal Exam Abdominal exam: Present: soft, Non-Tender. Absent: tenderness, distention, guarding, rebound, rigidity - Extremities Exam Extremities exam: Present: normal inspection, full ROM, normal capillary refill. Absent: tenderness, pedal edema - Back Exam Back exam: Present: normal inspection - Neurological Exam Neurological exam: Present: alert (Nonverbal to me does speak to the nurses in my attending. Confused to them.) - Psychiatric Psychiatric exam: Present: normal affect, normal mood - Skin Skin exam: Present: warm, dry, intact, normal color. Absent: rash, cyanosis Course Course Narrative: Male patient being sent from home by caregiver for altered mental status. They state that the Past 2 days he has not been acting appropriately. They are not at bedside. Patient is nonverbal to me. He is maintaining his airway appropriately. His exam is benign. Lung sounds are clear heart sounds are normal abdomen is soft and nontender. No signs of edema. Basic workup was completed. He does have a slight elevated white count. His potassium is mildly elevated. CT of his head was normal. Chest x-ray was normal. We will admit patient for urinary tract infection and altered level consciousness. We have started patient on Rocephin. - Consultations Consultation #1: [facility] accepted Pt in stable condition Time: 18:33 Vital Signs Temperature 98.6 F 06/30/17 16:49 Pulse Rate 87 06/30/17 16:49 Respiratory Rate 24 06/30/17 16:49 Blood Pressure 146/95 06/30/17 16:49 O2 Sat by Pulse Oximetry 96 06/30/17 16:49 Temperature 98.6 F 06/30/17 16:49 Pulse Rate 86 06/30/17 17:45 Respiratory Rate 24 06/30/17 17:45 Blood Pressure 112/76 06/30/17 17:45 O2 Sat by Pulse Oximetry 98 06/30/17 17:45 Oxygen Delivery Oxygen Delivery Nasal Cannula Medical Decision Making - Medical Records Medical records reviewed: Yes I reviewed the patient's medical records. - Lab Data Lab results reviewed: Yes I reviewed the patient's lab results. Result diagrams: 06/30/17 17:10 06/30/17 17:10 Lab Results 06/30/17 06/30/17 06/30/17 Range/Units 16:59 17:10 17:10 WBC 14.8 H (4.3-11.1) K/mcL RBC 5.16 (4.19-5.50) M/mcL Hgb 15.4 (12.9-16.9) g/dL Hct 48.3 (37.5-50.1) % MCV 93.6 (83.0-100.0) fL MCH 29.8 (28.0-33.3) pg MCHC 31.9 (31.6-35.5) g/dL RDW 14.6 H (11.5-14.5) % Plt Count 311 (140-400) K/mcL MPV 11.2 (9.4-12.4) fL Seg Neutrophils % 58.0 % Lymphocytes % 24.0 % Monocytes % 6.0 % Basophils % 1.0 % Metamyelocytes % 6.0 H (0) % Promyelocytes % 5.0 H (0) % Neutrophils # 8.6 (1.6-8.9) K/mcL Lymphocytes # 3.6 (0.6-4.6) K/mcL Monocytes # 0.9 (0.0-1.3) K/mcL Basophils # 0.2 (0.0-0.2) K/mcL Reactive Lymphocytes Present A (Not Present) Large Platelets Present A (Not Present) PT 12.7 H (9.4-12.1) Seconds INR 1.2 APTT 30.9 (26.0-36.0) Seconds Sodium (136-145) mEq/L Potassium (3.5-4.5) mEq/L Chloride (98-109) mEq/L Carbon Dioxide (19-29) mEq/L BUN (8-26) mg/dL Creatinine (0.72-1.25) mg/dL Est GFR ( Amer) (> 60) Est GFR (Non-Af Amer) (> 60) BUN/Creatinine Ratio (6-26) Glucose (70-99) mg/dL POC Glucose 93 H (58-89) Calculated Osmolality (280-300) Calcium (8.6-10.8) mg/dL Total Bilirubin (0.2-1.2) mg/dL Direct Bilirubin (0.0-0.5) mg/dL Indirect Bilirubin (0.0-1.2) mg/dL AST (5-34) Units/L ALT (0-55) Units/L Alkaline Phosphatase (38-126) Units/L Ammonia (18-72) mcmol/L Creatine Kinase (30-200) Units/L Troponin I (0-0.03) ng/mL Serum Total Protein (6.0-8.3) g/dL Albumin (3.5-5.0) g/dL Globulin (2.4-3.5) g/dL Albumin/Globulin Ratio (1.1-2.2) Urine Color (Yellow) Urine Clarity (Clear) Urine pH (5.0-8.0) pH Units Ur Specific [place] (1.010-1.025) Urine Protein (Neg-Trace) mg/dL Urine Glucose (UA) (Normal) mg/dL Urine Ketones (Negative) mg/dL Urine Blood (Negative) Urine Nitrite (Negative) Urine Bilirubin (Negative) Urine Urobilinogen (Normal) mg/dL Ur Leukocyte Esterase (Negative) Urine Microscopic RBC (0-3) per hpf Urine Microscopic WBC (0-3) per hpf Ur Squamous Epith Cells (None-Few) per lpf Urine Bacteria (None-Few) per hpf Hyaline Casts Ur Culture Indicated? (NO) Urine Opiates Screen (Laqarf=045) ng/mL Ur Barbiturates Screen (Wpnrbt=926) ng/mL Ur Phencyclidine Scrn (Cutoff=25) ng/mL Ur Amphetamines Screen (Eygdbl=0743) ng/mL U Benzodiazepines Scrn (Ephjyi=828) ng/mL Urine Cocaine Screen (Cutoff= 300) ng/mL U Marijuana (THC) Screen (Cutoff = 50) ng/mL Ethyl Alcohol (0-10) mg/dL 06/30/17 06/30/17 06/30/17 Range/Units 17:10 17:10 17:10 WBC (4.3-11.1) K/mcL RBC (4.19-5.50) M/mcL Hgb (12.9-16.9) g/dL Hct (37.5-50.1) % MCV (83.0-100.0) fL MCH (28.0-33.3) pg MCHC (31.6-35.5) g/dL RDW (11.5-14.5) % Plt Count (140-400) K/mcL MPV (9.4-12.4) fL Seg Neutrophils % % Lymphocytes % % Monocytes % % Basophils % % Metamyelocytes % (0) % Promyelocytes % (0) % Neutrophils # (1.6-8.9) K/mcL Lymphocytes # (0.6-4.6) K/mcL Monocytes # (0.0-1.3) K/mcL Basophils # (0.0-0.2) K/mcL Reactive Lymphocytes (Not Present) Large Platelets (Not Present) PT (9.4-12.1) Seconds INR APTT (26.0-36.0) Seconds Sodium 137 (136-145) mEq/L Potassium 5.1 H (3.5-4.5) mEq/L Chloride 100 (98-109) mEq/L Carbon Dioxide 27 (19-29) mEq/L BUN 48 H (8-26) mg/dL Creatinine 1.21 (0.72-1.25) mg/dL Est GFR ( Amer) > 60 (> 60) Est GFR (Non-Af Amer) 59 L (> 60) BUN/Creatinine Ratio 40 H (6-26) Glucose 95 (70-99) mg/dL POC Glucose (58-89) Calculated Osmolality 296 (280-300) Calcium 10.3 (8.6-10.8) mg/dL Total Bilirubin 0.4 (0.2-1.2) mg/dL Direct Bilirubin 0.2 (0.0-0.5) mg/dL Indirect Bilirubin 0.2 (0.0-1.2) mg/dL AST 13 (5-34) Units/L ALT < 6 (0-55) Units/L Alkaline Phosphatase 85 (38-126) Units/L Ammonia 33 (18-72) mcmol/L Creatine Kinase 8 L (30-200) Units/L Troponin I 0.01 (0-0.03) ng/mL Serum Total Protein 8.2 (6.0-8.3) g/dL Albumin 3.1 L (3.5-5.0) g/dL Globulin 5.1 H (2.4-3.5) g/dL Albumin/Globulin Ratio 0.6 L (1.1-2.2) Urine Color (Yellow) Urine Clarity (Clear) Urine pH (5.0-8.0) pH Units Ur Specific [place] (1.010-1.025) Urine Protein (Neg-Trace) mg/dL Urine Glucose (UA) (Normal) mg/dL Urine Ketones (Negative) mg/dL Urine Blood (Negative) Urine Nitrite (Negative) Urine Bilirubin (Negative) Urine Urobilinogen (Normal) mg/dL Ur Leukocyte Esterase (Negative) Urine Microscopic RBC (0-3) per hpf Urine Microscopic WBC (0-3) per hpf Ur Squamous Epith Cells (None-Few) per lpf Urine Bacteria (None-Few) per hpf Hyaline Casts Ur Culture Indicated? (NO) Urine Opiates Screen (Rmsdzl=012) ng/mL Ur Barbiturates Screen (Kvhjqm=486) ng/mL Ur Phencyclidine Scrn (Cutoff=25) ng/mL Ur Amphetamines Screen (Adtysx=6207) ng/mL U Benzodiazepines Scrn (Ikoevp=329) ng/mL Urine Cocaine Screen (Cutoff= 300) ng/mL U Marijuana (THC) Screen (Cutoff = 50) ng/mL Ethyl Alcohol < 10 (0-10) mg/dL 06/30/17 06/30/17 Range/Units 18:00 18:00 WBC (4.3-11.1) K/mcL RBC (4.19-5.50) M/mcL Hgb (12.9-16.9) g/dL Hct (37.5-50.1) % MCV (83.0-100.0) fL MCH (28.0-33.3) pg MCHC (31.6-35.5) g/dL RDW (11.5-14.5) % Plt Count (140-400) K/mcL MPV (9.4-12.4) fL Seg Neutrophils % % Lymphocytes % % Monocytes % % Basophils % % Metamyelocytes % (0) % Promyelocytes % (0) % Neutrophils # (1.6-8.9) K/mcL Lymphocytes # (0.6-4.6) K/mcL Monocytes # (0.0-1.3) K/mcL Basophils # (0.0-0.2) K/mcL Reactive Lymphocytes (Not Present) Large Platelets (Not Present) PT (9.4-12.1) Seconds INR APTT (26.0-36.0) Seconds Sodium (136-145) mEq/L Potassium (3.5-4.5) mEq/L Chloride (98-109) mEq/L Carbon Dioxide (19-29) mEq/L BUN (8-26) mg/dL Creatinine (0.72-1.25) mg/dL Est GFR ( Amer) (> 60) Est GFR (Non-Af Amer) (> 60) BUN/Creatinine Ratio (6-26) Glucose (70-99) mg/dL POC Glucose (58-89) Calculated Osmolality (280-300) Calcium (8.6-10.8) mg/dL Total Bilirubin (0.2-1.2) mg/dL Direct Bilirubin (0.0-0.5) mg/dL Indirect Bilirubin (0.0-1.2) mg/dL AST (5-34) Units/L ALT (0-55) Units/L Alkaline Phosphatase (38-126) Units/L Ammonia (18-72) mcmol/L Creatine Kinase (30-200) Units/L Troponin I (0-0.03) ng/mL Serum Total Protein (6.0-8.3) g/dL Albumin (3.5-5.0) g/dL Globulin (2.4-3.5) g/dL Albumin/Globulin Ratio (1.1-2.2) Urine Color Dark Yellow (Yellow) Urine Clarity Turbid A (Clear) Urine pH 5.5 (5.0-8.0) pH Units Ur Specific [place] 1.028 H (1.010-1.025) Urine Protein 30 H (Neg-Trace) mg/dL Urine Glucose (UA) Normal (Normal) mg/dL Urine Ketones 15 H (Negative) mg/dL Urine Blood Negative (Negative) Urine Nitrite Negative (Negative) Urine Bilirubin Small H (Negative) Urine Urobilinogen Normal (Normal) mg/dL Ur Leukocyte Esterase Large H (Negative) Urine Microscopic RBC 3-5 H (0-3) per hpf Urine Microscopic WBC TNTC H (0-3) per hpf Ur Squamous Epith Cells Moderate H (None-Few) per lpf Urine Bacteria Many H (None-Few) per hpf Hyaline Casts Test Not Performed Ur Culture Indicated? YES A (NO) Urine Opiates Screen Negative (Vgsekp=372) ng/mL Ur Barbiturates Screen Positive H (Hflfiq=492) ng/mL Ur Phencyclidine Scrn Negative (Cutoff=25) ng/mL Ur Amphetamines Screen Negative (Liiodx=2674) ng/mL U Benzodiazepines Scrn Negative (Iucdkg=028) ng/mL Urine Cocaine Screen Negative (Cutoff= 300) ng/mL U Marijuana (THC) Screen Negative (Cutoff = 50) ng/mL Ethyl Alcohol (0-10) mg/dL - Radiology Data Radiology results reviewed: Yes I reviewed the patient's radiology results. Chest X-Ray 06/30/17 16:54 IMPRESSION: Stable portable study. D/ / Perla Tamayo Cha, MD / Perla Tamayo Cha, MD Interpreting Provider: Perla Tamayo Cha, MD Head CT 06/30/17 16:55 IMPRESSION: No acute intracranial abnormality. D/ / Malik Rocha MD / Malik Rocha MD Interpreting Provider: Malik Rocha MD - EKG Data EKG #1 EKG attestation: Yes I reviewed and interpreted this EKG. EKG results narrative: Normal sinus rhythm at a rate 88. MA interval is 120. QRS duration is 102. QT is 353. QTC is 398. No signs of ischemia. No significant change from previous EKG dated 06/03/2017.
--- NOTE | 2017-06-30 16:58 | Emergency Department Note ---
Disposition Clinical Impression: Delirium due to general medical condition, UTI (urinary tract infection) Disposition: Admitted As Inpatient Condition: Good General Adult HPI - General Chief complaint: ED Altered Mental Status Stated complaint: AMS Time Seen by Provider: 06/30/17 16:51 - Related Data Home Medications Medication Instructions Recorded Confirmed Albuterol Sulfate [Proair Hfa] 1 - 2 puff IH Q6H PRN 05/06/17 06/30/17 Benztropine Mesylate 0.5 mg PO QAM 05/06/17 06/30/17 Benztropine Mesylate 1 mg PO HS 05/06/17 06/30/17 Divalproex (24 HR) [Depakote ER 500 mg PO BID 05/06/17 06/30/17 (24 HR)] Levothyroxine [Synthroid] 100 mcg PO DAILY 05/06/17 06/30/17 [place] Carbonate 600 mg PO HS 05/06/17 06/30/17 Tiotropium [Spiriva] 18 mcg IH DAILY 05/06/17 06/30/17 Primidone [Mysoline] 50 mg PO HS 06/04/17 06/30/17 Carbidopa/Levodopa 25/100 [Sinemet 1 each PO TID 06/30/17 06/30/17 25/100] Oxycodone HCl [Oxaydo] 5 mg PO Q6H PRN 06/30/17 06/30/17 Previous Rx's Medication Instructions Recorded Gabapentin [Neurontin] 200 mg PO TID #18 06/06/17 Lisinopril 2.5 mg PO DAILY #15 tablet 06/06/17 Orphenadrine [Norflex] 100 mg PO BID #7 tablet.er 06/13/17 Allergies Allergy/AdvReac Type Severity Reaction Status Date / Time nicotine patches Allergy Rash Uncoded 06/03/17 23:07 Past Medical History - Past Medical History Medical history: Reports: COPD, thyroid disease, other Surgical history: Reports: non-contributory Psychiatric history: Reports: anxiety, bipolar, depression - Social History Smoking Status: Current every day smoker Smokeless Tobacco Status: No Alcohol use: Reports: none Drug use: Reports: none Course Vital Signs Temperature 98.6 F 06/30/17 16:49 Pulse Rate 87 06/30/17 16:49 Respiratory Rate 24 06/30/17 16:49 Blood Pressure 146/95 06/30/17 16:49 O2 Sat by Pulse Oximetry 96 06/30/17 16:49 Temperature 99.9 F H 07/01/17 06:43 Pulse Rate 68 07/01/17 06:43 Respiratory Rate 16 07/01/17 06:43 Blood Pressure 139/85 07/01/17 06:43 O2 Sat by Pulse Oximetry 98 07/01/17 06:43 Oxygen Delivery Oxygen Delivery Nasal Cannula Medical Decision Making - Lab Data Result diagrams: 06/30/17 17:10 06/30/17 17:10 Lab Results 06/30/17 06/30/17 06/30/17 Range/Units 16:59 17:10 17:10 WBC 14.8 H (4.3-11.1) K/mcL RBC 5.16 (4.19-5.50) M/mcL Hgb 15.4 (12.9-16.9) g/dL Hct 48.3 (37.5-50.1) % MCV 93.6 (83.0-100.0) fL MCH 29.8 (28.0-33.3) pg MCHC 31.9 (31.6-35.5) g/dL RDW 14.6 H (11.5-14.5) % Plt Count 311 (140-400) K/mcL MPV 11.2 (9.4-12.4) fL Seg Neutrophils % 58.0 % Lymphocytes % 24.0 % Monocytes % 6.0 % Basophils % 1.0 % Metamyelocytes % 6.0 H (0) % Promyelocytes % 5.0 H (0) % Neutrophils # 8.6 (1.6-8.9) K/mcL Lymphocytes # 3.6 (0.6-4.6) K/mcL Monocytes # 0.9 (0.0-1.3) K/mcL Basophils # 0.2 (0.0-0.2) K/mcL Reactive Lymphocytes Present A (Not Present) Large Platelets Present A (Not Present) PT 12.7 H (9.4-12.1) Seconds INR 1.2 APTT 30.9 (26.0-36.0) Seconds Sodium (136-145) mEq/L Potassium (3.5-4.5) mEq/L Chloride (98-109) mEq/L Carbon Dioxide (19-29) mEq/L BUN (8-26) mg/dL Creatinine (0.72-1.25) mg/dL Est GFR ( Amer) (> 60) Est GFR (Non-Af Amer) (> 60) BUN/Creatinine Ratio (6-26) Glucose (70-99) mg/dL POC Glucose 93 H (58-89) Calculated Osmolality (280-300) Calcium (8.6-10.8) mg/dL Total Bilirubin (0.2-1.2) mg/dL Direct Bilirubin (0.0-0.5) mg/dL Indirect Bilirubin (0.0-1.2) mg/dL AST (5-34) Units/L ALT (0-55) Units/L Alkaline Phosphatase (38-126) Units/L Ammonia (18-72) mcmol/L Creatine Kinase (30-200) Units/L Troponin I (0-0.03) ng/mL Serum Total Protein (6.0-8.3) g/dL Albumin (3.5-5.0) g/dL Globulin (2.4-3.5) g/dL Albumin/Globulin Ratio (1.1-2.2) Urine Color (Yellow) Urine Clarity (Clear) Urine pH (5.0-8.0) pH Units Ur Specific [place] (1.010-1.025) Urine Protein (Neg-Trace) mg/dL Urine Glucose (UA) (Normal) mg/dL Urine Ketones (Negative) mg/dL Urine Blood (Negative) Urine Nitrite (Negative) Urine Bilirubin (Negative) Urine Urobilinogen (Normal) mg/dL Ur Leukocyte Esterase (Negative) Urine Microscopic RBC (0-3) per hpf Urine Microscopic WBC (0-3) per hpf Ur Squamous Epith Cells (None-Few) per lpf Urine Bacteria (None-Few) per hpf Hyaline Casts Ur Culture Indicated? (NO) Urine Opiates Screen (Meacss=833) ng/mL Ur Barbiturates Screen (Plpmsl=699) ng/mL Ur Phencyclidine Scrn (Cutoff=25) ng/mL Ur Amphetamines Screen (Xfaghv=8116) ng/mL U Benzodiazepines Scrn (Ddcjgw=896) ng/mL Urine Cocaine Screen (Cutoff= 300) ng/mL U Marijuana (THC) Screen (Cutoff = 50) ng/mL Ethyl Alcohol (0-10) mg/dL 06/30/17 06/30/17 06/30/17 Range/Units 17:10 17:10 17:10 WBC (4.3-11.1) K/mcL RBC (4.19-5.50) M/mcL Hgb (12.9-16.9) g/dL Hct (37.5-50.1) % MCV (83.0-100.0) fL MCH (28.0-33.3) pg MCHC (31.6-35.5) g/dL RDW (11.5-14.5) % Plt Count (140-400) K/mcL MPV (9.4-12.4) fL Seg Neutrophils % % Lymphocytes % % Monocytes % % Basophils % % Metamyelocytes % (0) % Promyelocytes % (0) % Neutrophils # (1.6-8.9) K/mcL Lymphocytes # (0.6-4.6) K/mcL Monocytes # (0.0-1.3) K/mcL Basophils # (0.0-0.2) K/mcL Reactive Lymphocytes (Not Present) Large Platelets (Not Present) PT (9.4-12.1) Seconds INR APTT (26.0-36.0) Seconds Sodium 137 (136-145) mEq/L Potassium 5.1 H (3.5-4.5) mEq/L Chloride 100 (98-109) mEq/L Carbon Dioxide 27 (19-29) mEq/L BUN 48 H (8-26) mg/dL Creatinine 1.21 (0.72-1.25) mg/dL Est GFR ( Amer) > 60 (> 60) Est GFR (Non-Af Amer) 59 L (> 60) BUN/Creatinine Ratio 40 H (6-26) Glucose 95 (70-99) mg/dL POC Glucose (58-89) Calculated Osmolality 296 (280-300) Calcium 10.3 (8.6-10.8) mg/dL Total Bilirubin 0.4 (0.2-1.2) mg/dL Direct Bilirubin 0.2 (0.0-0.5) mg/dL Indirect Bilirubin 0.2 (0.0-1.2) mg/dL AST 13 (5-34) Units/L ALT < 6 (0-55) Units/L Alkaline Phosphatase 85 (38-126) Units/L Ammonia 33 (18-72) mcmol/L Creatine Kinase 8 L (30-200) Units/L Troponin I 0.01 (0-0.03) ng/mL Serum Total Protein 8.2 (6.0-8.3) g/dL Albumin 3.1 L (3.5-5.0) g/dL Globulin 5.1 H (2.4-3.5) g/dL Albumin/Globulin Ratio 0.6 L (1.1-2.2) Urine Color (Yellow) Urine Clarity (Clear) Urine pH (5.0-8.0) pH Units Ur Specific [place] (1.010-1.025) Urine Protein (Neg-Trace) mg/dL Urine Glucose (UA) (Normal) mg/dL Urine Ketones (Negative) mg/dL Urine Blood (Negative) Urine Nitrite (Negative) Urine Bilirubin (Negative) Urine Urobilinogen (Normal) mg/dL Ur Leukocyte Esterase (Negative) Urine Microscopic RBC (0-3) per hpf Urine Microscopic WBC (0-3) per hpf Ur Squamous Epith Cells (None-Few) per lpf Urine Bacteria (None-Few) per hpf Hyaline Casts Ur Culture Indicated? (NO) Urine Opiates Screen (Ftifnx=049) ng/mL Ur Barbiturates Screen (Bfxpuj=276) ng/mL Ur Phencyclidine Scrn (Cutoff=25) ng/mL Ur Amphetamines Screen (Xstbcp=3180) ng/mL U Benzodiazepines Scrn (Etynss=452) ng/mL Urine Cocaine Screen (Cutoff= 300) ng/mL U Marijuana (THC) Screen (Cutoff = 50) ng/mL Ethyl Alcohol < 10 (0-10) mg/dL 06/30/17 06/30/17 Range/Units 18:00 18:00 WBC (4.3-11.1) K/mcL RBC (4.19-5.50) M/mcL Hgb (12.9-16.9) g/dL Hct (37.5-50.1) % MCV (83.0-100.0) fL MCH (28.0-33.3) pg MCHC (31.6-35.5) g/dL RDW (11.5-14.5) % Plt Count (140-400) K/mcL MPV (9.4-12.4) fL Seg Neutrophils % % Lymphocytes % % Monocytes % % Basophils % % Metamyelocytes % (0) % Promyelocytes % (0) % Neutrophils # (1.6-8.9) K/mcL Lymphocytes # (0.6-4.6) K/mcL Monocytes # (0.0-1.3) K/mcL Basophils # (0.0-0.2) K/mcL Reactive Lymphocytes (Not Present) Large Platelets (Not Present) PT (9.4-12.1) Seconds INR APTT (26.0-36.0) Seconds Sodium (136-145) mEq/L Potassium (3.5-4.5) mEq/L Chloride (98-109) mEq/L Carbon Dioxide (19-29) mEq/L BUN (8-26) mg/dL Creatinine (0.72-1.25) mg/dL Est GFR ( Amer) (> 60) Est GFR (Non-Af Amer) (> 60) BUN/Creatinine Ratio (6-26) Glucose (70-99) mg/dL POC Glucose (58-89) Calculated Osmolality (280-300) Calcium (8.6-10.8) mg/dL Total Bilirubin (0.2-1.2) mg/dL Direct Bilirubin (0.0-0.5) mg/dL Indirect Bilirubin (0.0-1.2) mg/dL AST (5-34) Units/L ALT (0-55) Units/L Alkaline Phosphatase (38-126) Units/L Ammonia (18-72) mcmol/L Creatine Kinase (30-200) Units/L Troponin I (0-0.03) ng/mL Serum Total Protein (6.0-8.3) g/dL Albumin (3.5-5.0) g/dL Globulin (2.4-3.5) g/dL Albumin/Globulin Ratio (1.1-2.2) Urine Color Dark Yellow (Yellow) Urine Clarity Turbid A (Clear) Urine pH 5.5 (5.0-8.0) pH Units Ur Specific [place] 1.028 H (1.010-1.025) Urine Protein 30 H (Neg-Trace) mg/dL Urine Glucose (UA) Normal (Normal) mg/dL Urine Ketones 15 H (Negative) mg/dL Urine Blood Negative (Negative) Urine Nitrite Negative (Negative) Urine Bilirubin Small H (Negative) Urine Urobilinogen Normal (Normal) mg/dL Ur Leukocyte Esterase Large H (Negative) Urine Microscopic RBC 3-5 H (0-3) per hpf Urine Microscopic WBC TNTC H (0-3) per hpf Ur Squamous Epith Cells Moderate H (None-Few) per lpf Urine Bacteria Many H (None-Few) per hpf Hyaline Casts Test Not Performed Ur Culture Indicated? YES A (NO) Urine Opiates Screen Negative (Ibqppc=714) ng/mL Ur Barbiturates Screen Positive H (Aafxlg=929) ng/mL Ur Phencyclidine Scrn Negative (Cutoff=25) ng/mL Ur Amphetamines Screen Negative (Hygucr=1796) ng/mL U Benzodiazepines Scrn Negative (Htvvfe=571) ng/mL Urine Cocaine Screen Negative (Cutoff= 300) ng/mL U Marijuana (THC) Screen Negative (Cutoff = 50) ng/mL Ethyl Alcohol (0-10) mg/dL Attestation Statement - Attestation Attestation: I examined this patient and my medical decision-making was reviewed with the Resident Physician. I agree with the documented findings, disposition and treatment plan as described except to the extent set forth below. [id number] time provided Patient presents from the extended care facility by EMS for altered mental status over the past several days. Patient is pleasantly confused on exam. He is oxygen dependent. Denies being in pain. Plan of care and management discussed by me with the resident physician Dr. Flores
[2017-06-30 17:18] LABS: Hematocrit 48.3 % (37.5-50.1); Hemoglobin 15.4 g/dL (12.9-16.9); Mean Corpuscular HGB Conc 31.9 g/dL (31.6-35.5); Mean Corpuscular Hemoglobin 29.8 pg (28.0-33.3); Mean Corpuscular Volume 93.6 fL (83.0-100.0); Mean Platelet Volume 11.2 fL (9.4-12.4); Platelet Count 311 K/mcL (140-400); Red Blood Count 5.16 M/mcL (4.19-5.50); Red Cell Distribution Width 14.6 % (11.5-14.5)
[2017-06-30 17:23] LABS: INR 1.2; Prothrombin Time 12.7 Seconds (9.4-12.1)
[2017-06-30 17:26] LABS: Activated Partial Thrombo Time 30.9 Seconds (26.0-36.0)
[2017-06-30 17:37] LABS: Albumin 3.1 g/dL (3.5-5.0); Albumin/Globulin Ratio 0.6 (1.1-2.2); Alkaline Phosphatase 85 Units/L (38-126); Aspartate Amino Transferase 13 Units/L (5-34); BUN/Creatinine Ratio 40 (6-26); Bilirubin,Direct 0.2 mg/dL (0.0-0.5); Bilirubin,Indirect 0.2 mg/dL (0.0-1.2); Bilirubin,Total 0.4 mg/dL (0.2-1.2); Blood Urea Nitrogen 48 mg/dL (8-26); Calcium 10.3 mg/dL (8.6-10.8); Carbon Dioxide 27 mEq/L (19-29); Chloride 100 mEq/L (98-109); Creatine Kinase 8 Units/L (30-200); Globulin 5.1 g/dL (2.4-3.5); Glucose 95 mg/dL (70-99); Osmolality,Calculated 296 (280-300); Potassium 5.1 mEq/L (3.5-4.5); Sodium 137 mEq/L (136-145); Total Protein 8.2 g/dL (6.0-8.3); eGFR For African Americans > 60 (> 60); eGFR For Non-African Americans 59 (> 60)
[2017-06-30 17:38] LABS: Alanine Aminotransferase < 6 Units/L (0-55); Ethanol < 10 mg/dL (0-10)
[2017-06-30 17:49] LABS: Basophils # 0.2 K/mcL (0.0-0.2); Lymphocytes # 3.6 K/mcL (0.6-4.6); Monocytes # 0.9 K/mcL (0.0-1.3); Neutrophils # 8.6 K/mcL (1.6-8.9)
[2017-06-30 17:50] LABS: Large Platelets Present (Not Present)
[2017-06-30 17:52] LABS: Reactive Lymphocytes Present (Not Present)
[2017-06-30 18:09] LABS: Bilirubin,Urine Small (Negative); Blood,Urine Negative (Negative); Clarity,Urine Turbid (Clear); Color,Urine Dark Yellow (Yellow); Glucose,Urine (UA) Normal (Normal); Ketones,Urine 15 mg/dL (Negative); Leukocyte Esterase,Urine Large (Negative); Nitrite,Urine Negative (Negative); PH,Urine 5.5 pH Units (5.0-8.0); Protein,Urine 30 mg/dL (Neg-Trace); Specific Gravity,Urine 1.028 (1.010-1.025); Urobilinogen,Urine Normal (Normal)
[2017-06-30 18:11] LABS: Bacteria,Urine Many per hpf (None-Few); Squamous Epithelial Cell,Urine Moderate per lpf (None-Few); WBC,Urine TNTC per hpf (0-3)
[2017-06-30 18:24] LABS: Amphetamine Screen,Urine Negative ng/mL (Cutoff=1000); Barbiturate Screen,Urine Positive ng/mL (Cutoff=200); Benzodiazepines Screen,Urine Negative ng/mL (Cutoff=200); Cannabinoid Screen,Urine Negative ng/mL (Cutoff = 50); Cocaine Screen,Urine Negative ng/mL (Cutoff= 300); Opiate Screen,Urine Negative ng/mL (Cutoff=300); Phencyclidine Screen,Urine Negative ng/mL (Cutoff=25)
[2017-06-30] MEDS ORDERED: Naloxone 0.4 MG/ML INJ IVP PRN (20:19)
--- NOTE | 2017-06-30 20:24 | Internal Med History&Physical ---
Date of Encounter: 06/30/17 Time of Encounter: 20:22 Assessment and Plan (1) UTI (urinary tract infection) Current visit: Yes Status: Acute IV rocephin, pend urine cx Qualifiers: Urinary tract infection type: acute cystitis Hematuria presence: without hematuria Qualified Code(s): N30.00 - Acute cystitis without hematuria (2) Altered mental status Current visit: No Status: Acute hold narcotics, primidone, lithium - check level in a.m, NPO for now due to aspiration risk with AMS. Suspect 2/2 UTI and exacerbated by polypharmacy Qualifiers: Altered mental status type: disorientation Qualified Code(s): R41.0 - Disorientation, unspecified (3) Seizure disorder Current visit: No Status: Chronic continue valproate, check levels (4) COPD (chronic obstructive pulmonary disease) Current visit: No Status: Chronic stable. albuterol prn Qualifiers: COPD type: chronic bronchitis Chronic bronchitis type: simple Qualified Code(s): J41.0 - Simple chronic bronchitis Internal Medicine - H&P: HPI Chief complaint: Confusion History of present illness: Mr. Alejandra is a 72 year old male who presents with confusion/AMS found to have UTI. Patient was not able to provide a hx due to confusion state but per reports, noted day hx of AMS, worsening with time and without improving factors. In the ED, UDS with barbiturates (from his primidone), pyuria, CT head and CXR wnl. EKG reviewed by self with rate 88, NSR Past Med Surg Social Fam HX - Past Medical History Medical history: COPD, thyroid disease, other Psychiatric history: anxiety, bipolar, depression - Past Surgical History Surgical History: non-contributory - Social History Smoking Status: Current every day smoker Smokeless Tobacco Status: No Alcohol use: none Drug use: none - Family History Father Adopted: No Family Member Ethnicity: Non- Living Status: Hx Family Cardiac Disorders: No Hx Family Respiratory Disorders: No Hx Family Cancer: Yes Hx Family GI Disorders: No Hx Family Endocrine Disorder: No Hx Family Neuromuscular Disorders: No Hx Family Neurologic Disorders: No Hx Family HEENT Disorders: No Hx Family Autoimmune Disorders: No Internal Medicine - H&P: Meds Albuterol Sulfate [Proair Hfa] 1 - 2 puff IH Q6H PRN 05/06/17 [History] Benztropine Mesylate 0.5 mg PO QAM 05/06/17 [History] Benztropine Mesylate 1 mg PO HS 05/06/17 [History] Divalproex (24 HR) [Depakote ER (24 HR)] 500 mg PO BID 05/06/17 [History] Levothyroxine [Synthroid] 100 mcg PO DAILY 05/06/17 [History] Sipsey Carbonate 600 mg PO HS 05/06/17 [History] Tiotropium [Spiriva] 18 mcg IH DAILY 05/06/17 [History] Primidone [Mysoline] 50 mg PO HS 06/04/17 [History] Gabapentin [Neurontin] 200 mg PO TID #18 06/06/17 [Rx] Lisinopril 2.5 mg PO DAILY #15 tablet 06/06/17 [Rx] Orphenadrine [Norflex] 100 mg PO BID #7 tablet.er 06/13/17 [Rx] Carbidopa/Levodopa 25/100 [Sinemet 25/100] 1 each PO TID 06/30/17 [History] Oxycodone HCl [Oxaydo] 5 mg PO Q6H PRN 06/30/17 [History] 3 Allergy/AdvReac Type Severity Reaction Status Date / Time nicotine patches Allergy Rash Uncoded 06/03/17 23:07 All Systems PM: A 10-system review of systems was performed and is negative for pertinent findings except as documented above in the HPI. Review of systems: ROS 14 point review of systems reviewed as best as possible given presentation. Pertinent positive or negative as per HPI or otherwise reviewed as negative - Constitutional Vitals: Temp Pulse Resp BP Pulse Ox 99.6 F 67 18 129/84 98 06/30/17 19:45 06/30/17 19:45 06/30/17 19:45 06/30/17 19:45 06/30/17 19:45 Exam: General - continues not oriented to time and place Eyes - ZAHRA. Eye lids intact. No scleral icterus Neuro - unable to participate Heart - Sinus. RRR. S1 and S2 present. No added HS/murmurs appreciated. No elevated JVD appreciated. No calf swellings/erythema Lung - Adequate air entry b/l, No crackes/wheezes appreciated GI - Soft, non-tender. No hepatosplenomegaly/ascites. BS+ - No CVA/suprapubic tenderness or palpable bladder distension Skin - Intact. No rash/petechiae/ecchymosis. Warm extremities Internal Med - H&P Results - Labs CBC & Chem 7: 06/30/17 17:10 06/30/17 17:10
[2017-06-30] MEDS ORDERED: Primidone 50 MG TABLET PO SCH (21:00)
[2017-06-30] MEDS: Gabapentin 100 MG CAPSULE PO SCH (21:07)
[2017-06-30] MEDS: Carbidopa/Levodopa 25/100 TABLET PO SCH (21:07)
[2017-06-30] MEDS: Divalproex (24 HR) 500 MG TABLET PO SCH (21:07)
[2017-06-30] MEDS: Ringers Solution, Lactated 1,000 ML IVC SCH (21:16)
[2017-07-01] MEDS: Ringers Solution, Lactated 1,000 ML IVC SCH (05:21)
[2017-07-01] MEDS ORDERED: *HR* Enoxaparin 30 MG/0.3 ML SYRINGE SQ SCH (06:00)
[2017-07-01] MEDS: Tiotropium 18 MCG inhalation IH SCH (08:03)
[2017-07-01 09:47] LABS: Hemoglobin 14.3 g/dL (12.9-16.9); Mean Corpuscular HGB Conc 31.1 g/dL (31.6-35.5); Mean Corpuscular Hemoglobin 29.6 pg (28.0-33.3); Mean Corpuscular Volume 95.2 fL (83.0-100.0); Mean Platelet Volume 11.4 fL (9.4-12.4); Platelet Count 254 K/mcL (140-400); Red Blood Count 4.83 M/mcL (4.19-5.50); Red Cell Distribution Width 14.6 % (11.5-14.5)
[2017-07-01 10:05] LABS: Alanine Aminotransferase 11 Units/L (0-55); Albumin 2.9 g/dL (3.5-5.0); Albumin/Globulin Ratio 0.6 (1.1-2.2); Alkaline Phosphatase 77 Units/L (38-126); Aspartate Amino Transferase 12 Units/L (5-34); BUN/Creatinine Ratio 45 (6-26); Bilirubin,Total 0.4 mg/dL (0.2-1.2); Blood Urea Nitrogen 41 mg/dL (8-26); Carbon Dioxide 26 mEq/L (19-29); Chloride 102 mEq/L (98-109); Globulin 4.6 g/dL (2.4-3.5); Glucose 84 mg/dL (70-99); Osmolality,Calculated 295 (280-300); Potassium 4.7 mEq/L (3.5-4.5); Sodium 138 mEq/L (136-145); Total Protein 7.5 g/dL (6.0-8.3); eGFR For African Americans > 60 (> 60); eGFR For Non-African Americans > 60 (> 60)
[2017-07-01] MEDS: Carbidopa/Levodopa 25/100 TABLET PO SCH ×3 (10:53→19:31)
[2017-07-01] MEDS: Gabapentin 100 MG CAPSULE PO SCH ×3 (10:53→19:31)
[2017-07-01] MEDS: Divalproex (24 HR) 500 MG TABLET PO SCH ×2 (10:53→19:31)
--- NOTE | 2017-07-01 11:56 | Internal Med Progress Note ---
Date of Encounter: 07/01/17 Time of Encounter: 11:53 - Assessment and plan (1) Altered mental status Current Visit: No Status: Acute Assessment and plan: Could be due to acute toxic encephalopathy with UTI however concerned for CVA too.. Need to r/o CVA will do bed side swallow.. if he fails strict NPO for now speech therapy eval pending changed IVF to D5 1/2 NS will get Brain MRI cont neuro checks Q6hr will try to switch all his meds to IV form Qualifiers: Altered mental status type: disorientation Qualified Code(s): R41.0 - Disorientation, unspecified (2) UTI (urinary tract infection) Current Visit: Yes Status: Acute Assessment and plan: Cont empirical abx Rocephin f/u on Urine cx Qualifiers: Urinary tract infection type: acute cystitis Hematuria presence: without hematuria Qualified Code(s): N30.00 - Acute cystitis without hematuria (3) Acute encephalopathy Current Visit: No Status: Acute Assessment and plan: mostly toxic encephaloapthy with UTI (4) Seizure disorder Current Visit: No Status: Chronic Assessment and plan: no acute seizure activity He was on Divalproex --- not sure this is for seizure or behavior disorder will try to find IV equivalent for this will give him IV Ativan PRN for any active seizure activity con close monitoring cont seizure precautions (5) Parkinson disease Current Visit: No Status: Chronic Assessment and plan: resume home meds when he tolerates PO intake (6) Hypertension Current Visit: No Status: Chronic Assessment and plan: stable Qualifiers: Hypertension type: essential hypertension Qualified Code(s): I10 - Essential (primary) hypertension (7) COPD (chronic obstructive pulmonary disease) Current Visit: No Status: Chronic Assessment and plan: not in exacerbation on Duoneb and INH Qualifiers: COPD type: chronic bronchitis Chronic bronchitis type: simple Qualified Code(s): J41.0 - Simple chronic bronchitis (8) Nicotine dependence Current Visit: No Status: Chronic Assessment and plan: on Nicotine patch Qualifiers: Nicotine product type: cigarettes Substance use status: unspecified nicotine-induced disorder Qualified Code(s): F17.219 - Nicotine dependence, cigarettes, with unspecified nicotine-induced disorders (9) DVT prophylaxis Current Visit: No Status: Acute Assessment and plan: on SQ Lovenox - Subjective Interval history: This is a 72 y/o M with known PMH of COPD, Seizure disorder, ?? 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 Pt is alert, awake and disoriented. Following few commands only. Unable to provide me any history. - Constitutional Vitals: Temp Pulse Resp BP Pulse Ox 99.9 F H 68 16 139/85 98 07/01/17 06:43 07/01/17 06:43 07/01/17 06:43 07/01/17 06:43 07/01/17 06:43 General appearance: Present: A&O X 0, pleasant, no acute distress - Head Head exam: Present: atraumatic, normal inspection - Respiratory Respiratory exam: Present: decreased breath sounds, wheezes. Absent: respiratory distress, rhonchi - Cardiovascular Cardiovascular exam: Present: RRR, +S1, +S2. Absent: systolic murmur - Extremities Exam Extremities exam: Absent: calf tenderness, pedal edema, tenderness - Neurological Exam Neurological exam: Present: altered Additional comments: unable to perform through neurological exam due to his altered mental status.. however I feel like he does have some Rt side weakness.. - Psychiatric Psychiatric exam: Present: depressed Internal Medicine: Result - Labs CBC & Chem 7: 07/01/17 09:40 07/01/17 09:40 Labs: Short CBC 07/01/17 Range/Units 09:40 WBC 13.4 H (4.3-11.1) K/mcL Hgb 14.3 (12.9-16.9) g/dL Hct 46.0 (37.5-50.1) % Plt Count 254 (140-400) K/mcL BMP 07/01/17 09:40 Sodium 138 Potassium 4.7 H Chloride 102 Carbon Dioxide 26 BUN 41 H Creatinine 0.92 Glucose 84 Calcium 10.0 Liver Function 07/01/17 Range/Units 09:40 Total Bilirubin 0.4 (0.2-1.2) mg/dL AST 12 (5-34) Units/L ALT 11 (0-55) Units/L Alkaline Phosphatase 77 (38-126) Units/L Albumin 2.9 L (3.5-5.0) g/dL - ABG Interpretation ABG results: PT/INR, D-dimer PT 12.7 Seconds (9.4-12.1) H 06/30/17 17:10 Consult Discharge Plan - Plan Referrals: [facility] [Outside]
[2017-07-01 12:27] LABS: Lymphocytes # 4.3 K/mcL (0.6-4.6); Monocytes # 0.5 K/mcL (0.0-1.3); Neutrophils # 8.6 K/mcL (1.6-8.9); Platelet Estimate Normal (Normal)
[2017-07-01] MEDS: D5% in 0.45% NACL 1,000 ML IVC SCH ×2 (13:57→22:14)
[2017-07-01] MEDS: *HR* LORazepam 2 MG/ML VIAL IVP PRN ×2 (14:57→22:45)
[2017-07-02] MEDS: D5% in 0.45% NACL 1,000 ML IVC SCH ×2 (06:05→16:57)
[2017-07-02] MEDS: *HR* Enoxaparin 40 MG/0.4 ML SYRINGE SQ SCH (06:06)
[2017-07-02 06:22] LABS: BUN/Creatinine Ratio 37 (6-26); Blood Urea Nitrogen 26 mg/dL (8-26); Calcium 8.5 mg/dL (8.6-10.8); Carbon Dioxide 25 mEq/L (19-29); Chloride 103 mEq/L (98-109); Glucose 129 mg/dL (70-99); Magnesium 1.7 mg/dL (1.6-2.6); Osmolality,Calculated 282 (280-300); Potassium 3.9 mEq/L (3.5-4.5); Sodium 133 mEq/L (136-145); eGFR For African Americans > 60 (> 60); eGFR For Non-African Americans > 60 (> 60)
[2017-07-02 06:25] LABS: Basophils # 0.1 K/mcL (0.0-0.2); Hematocrit 36.3 % (37.5-50.1); Mean Corpuscular HGB Conc 33.1 g/dL (31.6-35.5); Mean Corpuscular Hemoglobin 30.7 pg (28.0-33.3); Mean Corpuscular Volume 92.8 fL (83.0-100.0); Mean Platelet Volume 11.4 fL (9.4-12.4); Platelet Count 204 K/mcL (140-400); Red Blood Count 3.91 M/mcL (4.19-5.50); Red Cell Distribution Width 14.1 % (11.5-14.5)
[2017-07-02 06:50] LABS: Large Platelets Present (Not Present); Monocytes # 0.7 K/mcL (0.0-1.3); Neutrophils # 6.1 K/mcL (1.6-8.9); Platelet Estimate Normal (Normal); Reactive Lymphocytes Present (Not Present)
[2017-07-02] MEDS: Tiotropium 18 MCG inhalation IH SCH (08:09)
[2017-07-02] MEDS: Carbidopa/Levodopa 25/100 TABLET PO SCH ×4 (08:31→20:14)
[2017-07-02] MEDS: Gabapentin 100 MG CAPSULE PO SCH ×4 (08:31→20:14)
[2017-07-02] MEDS: Divalproex (24 HR) 500 MG TABLET PO SCH ×3 (08:31→20:14)
--- NOTE | 2017-07-02 10:57 | Internal Med Progress Note ---
Date of Encounter: 07/02/17 Time of Encounter: 10:54 - Assessment and plan (1) Altered mental status Current Visit: No Status: Acute Assessment and plan: Could be due to acute toxic encephalopathy with UTI MRI of brain is negative for CVA-- r/o CVA Failed swallow eval by speech therapy y/d due to his AMS Since he seems to be more alert, awake and pleasant today will swallow eval again today Cont IVF D5 1/2 NS cont neuro checks Qshift Qualifiers: Altered mental status type: disorientation Qualified Code(s): R41.0 - Disorientation, unspecified (2) UTI (urinary tract infection) Current Visit: Yes Status: Acute Assessment and plan: Urine cx growing Citrobacter Cont empirical abx Rocephin Qualifiers: Urinary tract infection type: acute cystitis Hematuria presence: without hematuria Qualified Code(s): N30.00 - Acute cystitis without hematuria (3) Acute encephalopathy Current Visit: No Status: Acute Assessment and plan: mostly toxic encephaloapthy with UTI..also could be due to his underline chronic behavioral problem too will talk to his caregiver improving slowly (4) Seizure disorder Current Visit: No Status: Chronic Assessment and plan: no acute seizure activity He was on Divalproex --- not sure this is for seizure or behavior disorder Cont IV Ativan PRN for any active seizure activity con close monitoring cont seizure precautions (5) Parkinson disease Current Visit: No Status: Chronic Assessment and plan: resume home meds when he tolerates PO intake (6) Hypertension Current Visit: No Status: Chronic Assessment and plan: stable Qualifiers: Hypertension type: essential hypertension Qualified Code(s): I10 - Essential (primary) hypertension (7) COPD (chronic obstructive pulmonary disease) Current Visit: No Status: Chronic Assessment and plan: not in exacerbation on Duoneb and INH Qualifiers: COPD type: chronic bronchitis Chronic bronchitis type: simple Qualified Code(s): J41.0 - Simple chronic bronchitis (8) Nicotine dependence Current Visit: No Status: Chronic Assessment and plan: on Nicotine patch Qualifiers: Nicotine product type: cigarettes Substance use status: unspecified nicotine-induced disorder Qualified Code(s): F17.219 - Nicotine dependence, cigarettes, with unspecified nicotine-induced disorders (9) DVT prophylaxis Current Visit: No Status: Acute Assessment and plan: on SQ Lovenox - Subjective Interval history: This is a 72 y/o M with known PMH of COPD, Seizure disorder, ?? 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 Pt is alert, awake and oriented to self only. Following all the commands. Unable to provide me any history. - Constitutional Vitals: Temp Pulse Resp BP Pulse Ox 98.4 F 64 16 147/88 94 07/02/17 10:39 07/02/17 10:39 07/02/17 10:39 07/02/17 10:39 07/02/17 10:39 General appearance: Present: A&O X 0, pleasant, no acute distress - Head Head exam: Present: atraumatic, normal inspection - Respiratory Respiratory exam: Present: decreased breath sounds, wheezes. Absent: rales, respiratory distress, rhonchi - Cardiovascular Cardiovascular exam: Present: RRR, +S1, +S2. Absent: diastolic murmur, gallop, rubs, systolic murmur - GI/Abdominal GI/Abdominal exam: Present: normal bowel sounds, soft. Absent: rebound, rigid, tenderness - Extremities Exam Extremities exam: Absent: calf tenderness, pedal edema, tenderness - Neurological Exam Neurological exam: Present: altered - Psychiatric Psychiatric exam: Present: depressed Internal Medicine: Result - Labs CBC & Chem 7: 07/02/17 05:44 07/02/17 05:44 Labs: Short CBC 07/01/17 07/02/17 Range/Units 09:40 05:44 WBC 13.4 H 8.9 (4.3-11.1) K/mcL Hgb 14.3 12.0 L D (12.9-16.9) g/dL Hct 46.0 36.3 L (37.5-50.1) % Plt Count 254 204 (140-400) K/mcL Neutrophils # 8.6 6.1 (1.6-8.9) K/mcL BMP 07/02/17 05:44 Sodium 133 L Potassium 3.9 Chloride 103 Carbon Dioxide 25 BUN 26 D Creatinine 0.70 L Glucose 129 H Calcium 8.5 L - ABG Interpretation ABG results: PT/INR, D-dimer PT 12.7 Seconds (9.4-12.1) H 06/30/17 17:10 - Impressions Impressions Brain MRI 07/01/17 11:52 IMPRESSION: Limited by motion artifacts. No acute intracranial abnormality. Mild parenchymal volume loss. D/ / Jorge Armijo MD / Jorge Armijo MD Interpreting Provider: Jorge Armijo MD Consult Discharge Plan - Plan Referrals: [facility] [Outside]
[2017-07-03] MEDS: *HR* LORazepam 2 MG/ML VIAL IVP PRN (00:23)
[2017-07-03] MEDS ORDERED: Acetaminophen 325 MG TABLET PO PRN (00:34)
[2017-07-03 01:53] LABS: BUN/Creatinine Ratio 19 (6-26); Blood Urea Nitrogen 15 mg/dL (8-26); Calcium 8.8 mg/dL (8.6-10.8); Carbon Dioxide 26 mEq/L (19-29); Chloride 101 mEq/L (98-109); Glucose 118 mg/dL (70-99); Osmolality,Calculated 280 (280-300); Potassium 3.9 mEq/L (3.5-4.5); Sodium 134 mEq/L (136-145); eGFR For African Americans > 60 (> 60); eGFR For Non-African Americans > 60 (> 60)
[2017-07-03 02:02] LABS: Hematocrit 37.9 % (37.5-50.1); Hemoglobin 12.4 g/dL (12.9-16.9); Mean Corpuscular HGB Conc 32.7 g/dL (31.6-35.5); Mean Corpuscular Hemoglobin 30.8 pg (28.0-33.3); Mean Platelet Volume 11.3 fL (9.4-12.4); Platelet Count 196 K/mcL (140-400); Red Blood Count 4.03 M/mcL (4.19-5.50); Red Cell Distribution Width 14.2 % (11.5-14.5)
[2017-07-03 02:32] LABS: Eosinophils # 0.2 K/mcL (0.0-0.6); Lymphocytes # 1.8 K/mcL (0.6-4.6); Monocytes # 1.1 K/mcL (0.0-1.3); Neutrophils # 5.8 K/mcL (1.6-8.9); Platelet Estimate Normal (Normal)
[2017-07-03 02:34] LABS: Large Platelets Present (Not Present)
[2017-07-03] MEDS: *HR* Enoxaparin 40 MG/0.4 ML SYRINGE SQ SCH (05:59)
[2017-07-03] MEDS: D5% in 0.45% NACL 1,000 ML IVC SCH ×2 (05:59→20:11)
[2017-07-03] MEDS: Tiotropium 18 MCG inhalation IH SCH (07:29)
--- NOTE | 2017-07-03 09:47 | Electrocardiograph Report ---
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
[2017-07-03] MEDS: Divalproex (24 HR) 500 MG TABLET PO SCH ×2 (10:18→22:17)
[2017-07-03] MEDS: Gabapentin 100 MG CAPSULE PO SCH ×3 (10:18→22:17)
[2017-07-03] MEDS: Carbidopa/Levodopa 25/100 TABLET PO SCH ×3 (10:19→22:17)
--- NOTE | 2017-07-03 14:13 | Internal Med Progress Note ---
Date of Encounter: 07/03/17 Time of Encounter: 14:10 - Assessment and plan (1) Altered mental status Current Visit: No Status: Acute Assessment and plan: Could be due to acute toxic encephalopathy with UTI MRI of brain is negative for CVA-- r/o CVA Speech cleared him for Pureed diet d/c IVF Encourage more PO intake Will switch to all PO meds No need of frequent neuro checks anymore Qualifiers: Altered mental status type: disorientation Qualified Code(s): R41.0 - Disorientation, unspecified (2) UTI (urinary tract infection) Current Visit: Yes Status: Acute Assessment and plan: Urine cx growing cohn sensitive Citrobacter Cont empirical abx Rocephin Qualifiers: Urinary tract infection type: acute cystitis Hematuria presence: without hematuria Qualified Code(s): N30.00 - Acute cystitis without hematuria (3) Acute encephalopathy Current Visit: No Status: Acute Assessment and plan: mostly toxic encephaloapthy with UTI..also could be due to his underline chronic behavioral problem too improving slowly (4) Seizure disorder Current Visit: No Status: Chronic Assessment and plan: no acute seizure activity He was on Divalproex --- not sure this is for seizure or behavior disorder Since he passed swallow eval, resumed all his home PO meds con close monitoring cont seizure precautions (5) Parkinson disease Current Visit: No Status: Chronic Assessment and plan: resume home meds when he tolerates PO intake (6) Hypertension Current Visit: No Status: Chronic Assessment and plan: stable Qualifiers: Hypertension type: essential hypertension Qualified Code(s): I10 - Essential (primary) hypertension (7) COPD (chronic obstructive pulmonary disease) Current Visit: No Status: Chronic Assessment and plan: not in exacerbation on Duoneb and INH Qualifiers: COPD type: chronic bronchitis Chronic bronchitis type: simple Qualified Code(s): J41.0 - Simple chronic bronchitis (8) Nicotine dependence Current Visit: No Status: Chronic Assessment and plan: on Nicotine patch Qualifiers: Nicotine product type: cigarettes Substance use status: unspecified nicotine-induced disorder Qualified Code(s): F17.219 - Nicotine dependence, cigarettes, with unspecified nicotine-induced disorders (9) DVT prophylaxis Current Visit: No Status: Acute Assessment and plan: on SQ Lovenox (10) Physical deconditioning Current Visit: Yes Status: Acute Assessment and plan: PT / OT eval may need ECF placement.. will talk to CM / SW - Subjective Interval history: This is a 72 y/o M with known PMH of COPD, Seizure disorder, ?? 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 Pt is alert, awake and oriented to self only. Following all the commands. Unable to provide any history. No events overnight. - Constitutional Vitals: Temp Pulse Resp BP Pulse Ox 97.9 F 84 16 139/88 94 07/03/17 10:46 07/03/17 10:46 07/03/17 10:46 07/03/17 10:46 07/03/17 10:46 General appearance: Present: A&O X 0, pleasant, no acute distress - Head Head exam: Present: atraumatic, normal inspection - Respiratory Respiratory exam: Present: decreased breath sounds, rales (mild), wheezes. Absent: respiratory distress, rhonchi - Cardiovascular Cardiovascular exam: Present: RRR, +S1, +S2. Absent: systolic murmur - GI/Abdominal GI/Abdominal exam: Present: normal bowel sounds, soft. Absent: rebound, rigid, tenderness - Extremities Exam Extremities exam: Absent: calf tenderness, pedal edema, tenderness - Neurological Exam Neurological exam: Present: alert, altered - Psychiatric Psychiatric exam: Present: depressed Internal Medicine: Result - Labs CBC & Chem 7: 07/03/17 01:29 07/03/17 01:29 Labs: Short CBC 07/03/17 Range/Units 01:29 WBC 8.8 (4.3-11.1) K/mcL Hgb 12.4 L (12.9-16.9) g/dL Hct 37.9 (37.5-50.1) % Plt Count 196 (140-400) K/mcL Neutrophils # 5.8 (1.6-8.9) K/mcL BMP 07/03/17 01:29 Sodium 134 L Potassium 3.9 Chloride 101 Carbon Dioxide 26 BUN 15 D Creatinine 0.78 Glucose 118 H Calcium 8.8 - ABG Interpretation ABG results: PT/INR, D-dimer PT 12.7 Seconds (9.4-12.1) H 08/25/17 17:10 Consult Discharge Plan - Plan Referrals: [facility] [Outside]
[2017-07-04] MEDS: *HR* Enoxaparin 40 MG/0.4 ML SYRINGE SQ SCH (06:11)
[2017-07-04] MEDS: Tiotropium 18 MCG inhalation IH SCH (08:13)
[2017-07-04] MEDS: Carbidopa/Levodopa 25/100 TABLET PO SCH ×3 (09:36→20:36)
[2017-07-04] MEDS: Divalproex (24 HR) 500 MG TABLET PO SCH ×2 (09:36→20:36)
[2017-07-04] MEDS: Gabapentin 100 MG CAPSULE PO SCH ×3 (09:36→20:36)
--- NOTE | 2017-07-04 16:30 | Consult Note ---
Date of Encounter: 07/04/17 Time of Encounter: 16:27 History of Present Illness Patient: new to practice Requesting Physician: Elin Patel MD Reason for consult: depression- new changes in mental status History of present illness: Mr. Alejandra is a 72 year old male admitted to the hospital after he was brought in from the emergency department due to custodial staff reporting he was more confused and lethargic and had altered mental status. Patient was alert to self only patient was a very poor historian and unable to obtain information from patient he continued to nod his head or mumble when questions were being asked. Patient on approach was laying in bed on his side. He did not seem to be in any acute distress. Patient was not able to tell this provider about his medications when he is on them for why he is taking them. Medications were reviewed of Depakote 500 mg twice a day Neurontin 200 mg 3 times a day. Patient does have active urinary tract infection after antibiotics recommend continue to monitor patient's mood and confusion which may improve once urinary tract infection improves. Also would recommend social and political studies professor nursing call custodial to find out what patient's baseline is in regards to his speaking and communicating. If patient's mentation does not improve after antibiotic therapy of a couple days would recommend patient be transferred to geriatric inpatient psychiatry unit for further safety and stabilization. CC: Elin Patel MD Past Med Surg Social Fam HX - Past Medical History Medical history: COPD, thyroid disease, other - Past Surgical History Surgical History: non-contributory - Social History Smoking Status: Current every day smoker Smokeless Tobacco Status: No Alcohol use: none Drug use: none - Family History Father Adopted: No Family Member Ethnicity: Non- Living Status: Hx Family Cardiac Disorders: No Hx Family Respiratory Disorders: No Hx Family Cancer: Yes Hx Family GI Disorders: No Hx Family Endocrine Disorder: No Hx Family Neuromuscular Disorders: No Hx Family Neurologic Disorders: No Hx Family HEENT Disorders: No Hx Family Autoimmune Disorders: No Medications & Allergies Albuterol Sulfate [Proair Hfa] 1 - 2 puff IH Q6H PRN 05/06/17 [History] Benztropine Mesylate 0.5 mg PO QAM 05/06/17 [History] Benztropine Mesylate 1 mg PO HS 05/06/17 [History] Divalproex (24 HR) [Depakote ER (24 HR)] 500 mg PO BID 05/06/17 [History] Levothyroxine [Synthroid] 100 mcg PO DAILY 05/06/17 [History] Coffey Carbonate 600 mg PO HS 05/06/17 [History] Tiotropium [Spiriva] 18 mcg IH DAILY 05/06/17 [History] Primidone [Mysoline] 50 mg PO HS 06/04/17 [History] Gabapentin [Neurontin] 200 mg PO TID #18 06/06/17 [Rx] Lisinopril 2.5 mg PO DAILY #15 tablet 06/06/17 [Rx] Orphenadrine [Norflex] 100 mg PO BID #7 tablet.er 06/13/17 [Rx] Carbidopa/Levodopa 25/100 [Sinemet 25/100] 1 each PO TID 06/30/17 [History] Oxycodone HCl [Oxaydo] 5 mg PO Q6H PRN 06/30/17 [History] 3 Allergy/AdvReac Type Severity Reaction Status Date / Time nicotine patches Allergy Rash Uncoded 06/03/17 23:07 Review of Systems Psychiatric: Reports: confusion, difficulty concentrating Results - Vital Signs Vital signs: Temp Pulse Resp BP Pulse Ox 96.4 F L 67 17 144/74 95 07/04/17 14:06 07/04/17 14:06 07/04/17 14:06 07/04/17 14:06 07/04/17 14:06 - Labs Labs: Laboratory Last Values WBC 8.8 K/mcL (4.3-11.1) 07/03/17 01: RBC 4.03 M/mcL (4.19-5.50) L 07/03/17 01:29 Hgb 12.4 g/dL (12.9-16.9) L 07/03/17 01: Hct 37.9 % (37.5-50.1) 07/03/17 01: MCV 94.0 fL (83.0-100.0) 07/03/17 01:29 MCH 30.8 pg (28.0-33.3) 07/03/17 01: MCHC 32.7 g/dL (31.6-35.5) 07/03/17 01: RDW 14.2 % (11.5-14.5) 07/03/17 01:29 Plt Count 196 K/mcL (140-400) 07/03/17 01:29 MPV 11.3 fL (9.4-12.4) 07/03/17 01:29 Seg Neutrophils % 62.0 % 07/03/17 01:29 Band Neutrophils % 4.0 % (0-4) 07/03/17 01:29 Lymphocytes % 20.0 % 07/03/17 01:29 Monocytes % 12.0 % 07/03/17 01:29 Eosinophils % 2.0 % 07/03/17 01:29 Basophils % 1.0 % 07/02/17 05:44 Metamyelocytes % 6.0 % (0) H 06/30/17 17:10 Myelocytes % 1.0 % (0) H 07/02/17 05:44 Promyelocytes % [employer] 06/30/17 17:10 Neutrophils # 5.8 K/mcL (1.6-8.9) 07/03/17 01:29 Lymphocytes # 1.8 K/mcL (0.6-4.6) 07/03/17 01:29 Monocytes # 1.1 K/mcL (0.0-1.3) 07/03/17 01:29 Eosinophils # 0.2 K/mcL (0.0-0.6) 07/03/17 01:29 Basophils # 0.1 K/mcL (0.0-0.2) 07/02/17 05:44 Reactive Lymphocytes Present (Not Present) A 07/02/17 05:44 Platelet Estimate Normal (Normal) 07/03/17 01:29 Large Platelets Present (Not Present) A 07/03/17 01:29 PT 12.7 Seconds (9.4-12.1) H 06/30/17 17:10 INR 1.2 06/30/17 17:10 APTT 30.9 Seconds (26.0-36.0) 06/30/17 17:10 Sodium 134 mEq/L (136-145) L 07/03/17 01:29 Potassium 3.9 mEq/L (3.5-4.5) 07/03/17 01:29 Chloride 101 mEq/L (98-109) 07/03/17 01:29 Carbon Dioxide 26 mEq/L (19-29) 07/03/17 01:29 BUN 15 mg/dL (8-26) D 07/03/17 01:29 Creatinine 0.78 mg/dL (0.72-1.25) 07/03/17 01:29 Est GFR ( Amer) > 60 (> 60) 07/03/17 01:29 Est GFR (Non-Af Amer) > 60 (> 60) 07/03/17 01:29 BUN/Creatinine Ratio 19 (6-26) 07/03/17 01:29 Glucose 118 mg/dL (70-99) H 07/03/17 01:29 POC Glucose 127 (58-89) H 07/02/17 05:26 Calculated Osmolality 280 (280-300) 07/03/17 01:29 Calcium 8.8 mg/dL (8.6-10.8) 07/03/17 01:29 Magnesium 1.7 mg/dL (1.6-2.6) 07/02/17 05:44 Total Bilirubin 0.4 mg/dL (0.2-1.2) 07/01/17 09:40 Direct Bilirubin 0.2 mg/dL (0.0-0.5) 06/30/17 17:10 Indirect Bilirubin 0.2 mg/dL (0.0-1.2) 06/30/17 17:10 AST 12 Units/L (5-34) 07/01/17 09:40 ALT 11 Units/L (0-55) 07/01/17 09:40 Alkaline Phosphatase 77 Units/L (38-126) 07/01/17 09:40 Ammonia 33 mcmol/L (18-72) 06/30/17 17:10 Creatine Kinase 8 Units/L (30-200) L 06/30/17 17:10 Troponin I 0.01 ng/mL (0-0.03) 06/30/17 17:10 Serum Total Protein 7.5 g/dL (6.0-8.3) 07/01/17 09:40 Albumin 2.9 g/dL (3.5-5.0) L 07/01/17 09:40 Globulin 4.6 g/dL (2.4-3.5) H 07/01/17 09:40 Albumin/Globulin Ratio 0.6 (1.1-2.2) L 07/01/17 09:40 Urine Color Dark Yellow (Yellow) 06/30/17 18:00 Urine Clarity Turbid (Clear) A 06/30/17 18:00 Urine pH 5.5 pH Units (5.0-8.0) 06/30/17 18:00 Ur Specific [place] 1.028 (1.010-1.025) H 06/30/17 18:00 Urine Protein 30 mg/dL (Neg-Trace) H 06/30/17 18:00 Urine Glucose (UA) Normal mg/dL (Normal) 06/30/17 18:00 Urine Ketones 15 mg/dL (Negative) H 06/30/17 18:00 Urine Blood Negative (Negative) 06/30/17 18:00 Urine Nitrite Negative (Negative) 06/30/17 18:00 Urine Bilirubin Small (Negative) H 06/30/17 18:00 Urine Urobilinogen Normal mg/dL (Normal) 06/30/17 18:00 Ur Leukocyte Esterase Large (Negative) H 06/30/17 18:00 Urine Microscopic RBC 3-5 per hpf (0-3) H 06/30/17 18:00 Urine Microscopic WBC TNTC per hpf (0-3) H 06/30/17 18:00 Ur Squamous Epith Cells Moderate per lpf (None-Few) H 06/30/17 18:00 Urine Bacteria Many per hpf (None-Few) H 06/30/17 18:00 Hyaline Casts Test Not Performed 06/30/17 18:00 Ur Culture Indicated? YES (NO) A 06/30/17 18:00 Urine Opiates Screen Negative ng/mL (Edamos=930) 06/30/17 18:00 Ur Barbiturates Screen Positive ng/mL (Xahewp=253) H 06/30/17 18:00 Ur Phencyclidine Scrn Negative ng/mL (Cutoff=25) 06/30/17 18:00 Ur Amphetamines Screen Negative ng/mL (Uuqfzo=9058) 06/30/17 18:00 U Benzodiazepines Scrn Negative ng/mL (Fejdwy=944) 06/30/17 18:00 Coffey 1.0 mEq/L (0.6-1.2) 07/01/17 09:40 Urine Cocaine Screen Negative ng/mL (Cutoff= 300) 06/30/17 18:00 U Marijuana (THC) Screen Negative ng/mL (Cutoff = 50) 06/30/17 18:00 Ethyl Alcohol < 10 mg/dL (0-10) 06/30/17 17:10 Consult Discharge Plan - Plan Additional Instructions: Patient's mentation does not improve after antibiotic therapy and urinary tract infection clears up would recommend patient be transferred to inpatient geriatric psychiatric unit for further safety and stabilization. Referrals: [facility] [Outside]
--- NOTE | 2017-07-04 16:40 | Internal Med Progress Note ---
Date of Encounter: 07/04/17 Time of Encounter: 09:15 - Assessment and plan (1) Acute encephalopathy Current Visit: No Status: Acute Assessment and plan: Acute encephalopathy, likely metabolic - secondary to UTI - slowly improving Continue IV Rocephin CT head - no acute intracranial anomaly MRI head - no acute intracranial abnormality Chest x-ray - no acute process EKG - sinus rhythm with no acute ST-T changes Troponin - 0.01 Ammonia - 33 Echocardiogram (05/06/2017) - LVEF 60-65%, normal LV size and function Psychiatry consult - recommendations reviewed, appreciate input Continue close monitoring, aspiration precautions (2) UTI (urinary tract infection) Current Visit: Yes Status: Acute Assessment and plan: UTI present on admission - cultures positive for pansensitive Citrobacter Continue IV Rocephin Qualifiers: Urinary tract infection type: acute cystitis Hematuria presence: without hematuria Qualified Code(s): N30.00 - Acute cystitis without hematuria (3) COPD (chronic obstructive pulmonary disease) Current Visit: No Status: Chronic Assessment and plan: Stable, not in exacerbation - continue albuterol and Spiriva Qualifiers: COPD type: chronic bronchitis Chronic bronchitis type: simple Qualified Code(s): J41.0 - Simple chronic bronchitis (4) Nicotine dependence Current Visit: No Status: Chronic Assessment and plan: on Nicotine patch Qualifiers: Nicotine product type: cigarettes Substance use status: unspecified nicotine-induced disorder Qualified Code(s): F17.219 - Nicotine dependence, cigarettes, with unspecified nicotine-induced disorders (5) Seizure disorder Current Visit: No Status: Chronic Assessment and plan: no acute seizure activity Continue Depakote Since he passed swallow eval, resumed all his home PO meds con close monitoring cont seizure precautions (6) Parkinsons disease Current Visit: No Status: Chronic Assessment and plan: Continue Sinemet and Cogentin (7) Physical deconditioning Current Visit: Yes Status: Acute Assessment and plan: PT and OT evaluation, anticipating discharge to [facility] (8) DVT prophylaxis Current Visit: No Status: Acute Assessment and plan: Continue Lovenox subcutaneous - Time Spent With Patient 25 - 35 minutes - Subjective Interval history: Examined this morning. Patient is awake and alert. Not in any distress. He is only oriented to self. It is difficult to obtain any history from patient. He is apparently not been taking his meds and also has a poor appetite. Patient seems to have intermittent confusion. His baseline mental status is unknown. No fever. Hemodynamically stable. Patient's white count is now improved. No other acute events or complaints. - Constitutional Vitals: Temp Pulse Resp BP Pulse Ox 96.4 F L 67 17 144/74 95 07/04/17 14:06 07/04/17 14:06 07/04/17 14:06 07/04/17 14:06 07/04/17 14:06 General appearance: Present: A&O X 1, pleasant, no acute distress Exam: Generalized weakness, ill-appearing - Head Head exam: Present: atraumatic - Eye Eye exam: Absent: scleral icterus - ENT ENT exam: Present: mucous membranes dry - Respiratory Respiratory exam: Present: decreased breath sounds (Slightly decreased in both bases). Absent: rales, rhonchi, wheezes, tachypnea - Cardiovascular Cardiovascular exam: Present: RRR, +S1, +S2 - GI/Abdominal GI/Abdominal exam: Present: soft. Absent: distended, firm, guarding, tenderness - Extremities Exam Extremities exam: Present: radial pulses palpable and symmetrical. Absent: calf tenderness, cyanotic, pedal edema - Neurological Exam Additional comments: Patient is awake and alert, oriented to self only. Seems to have intermittent confusion. Patient probably has underlying dementia. Difficult to obtain any history from patient. He is able to move all extremities. No obvious focal neurological deficits. Internal Medicine: Result - Labs CBC & Chem 7: 07/03/17 01:29 07/03/17 01:29 - ABG Interpretation ABG results: PT/INR, D-dimer PT 12.7 Seconds (9.4-12.1) H 06/30/17 17:10 Consult Discharge Plan - Plan Additional Instructions: Patient's mentation does not improve after antibiotic therapy and urinary tract infection clears up would recommend patient be transferred to inpatient geriatric psychiatric unit for further safety and stabilization. Referrals: [facility] [Outside]
[2017-07-04] MEDS: Nicotine 21 MG PATCH.TD24 TD SCH (18:05)
[2017-07-05] MEDS: *HR* Enoxaparin 40 MG/0.4 ML SYRINGE SQ SCH (05:46)
[2017-07-05 07:30] LABS: Basophils # 0.1 K/mcL (0.0-0.2); Eosinophils # 0.1 K/mcL (0.0-0.6); Eosinophils % 0.9 %; Hematocrit 39.1 % (37.5-50.1); Hemoglobin 13.3 g/dL (12.9-16.9); Immature Granulocytes % 2.4 % (0-4); Lymphocytes # 2.5 K/mcL (0.6-4.6); Lymphocytes % 19.8 %; Mean Corpuscular Hemoglobin 30.6 pg (28.0-33.3); Mean Corpuscular Volume 90.1 fL (83.0-100.0); Mean Platelet Volume 11.6 fL (9.4-12.4); Monocytes % 7.6 %; Neutrophils # 8.6 K/mcL (1.6-8.9); Platelet Count 237 K/mcL (140-400); Red Blood Count 4.34 M/mcL (4.19-5.50); Red Cell Distribution Width 14.1 % (11.5-14.5); Segmented Neutrophils % 68.3 %
[2017-07-05 07:53] LABS: BUN/Creatinine Ratio 17 (6-26); Blood Urea Nitrogen 13 mg/dL (8-26); Carbon Dioxide 22 mEq/L (19-29); Chloride 101 mEq/L (98-109); Glucose 79 mg/dL (70-99); Osmolality,Calculated 277 (280-300); Potassium 3.7 mEq/L (3.5-4.5); Sodium 134 mEq/L (136-145); eGFR For African Americans > 60 (> 60); eGFR For Non-African Americans > 60 (> 60)
[2017-07-05] MEDS: Tiotropium 18 MCG inhalation IH SCH (08:16)
[2017-07-05] MEDS: Divalproex (24 HR) 500 MG TABLET PO SCH ×2 (09:34→21:23)
[2017-07-05] MEDS: Carbidopa/Levodopa 25/100 TABLET PO SCH ×3 (09:35→21:23)
[2017-07-05] MEDS: Gabapentin 100 MG CAPSULE PO SCH ×3 (09:35→21:23)
[2017-07-05] MEDS: Nicotine 21 MG PATCH.TD24 TD SCH (09:35)
--- NOTE | 2017-07-05 16:04 | Internal Med Progress Note ---
Date of Encounter: 07/05/17 Time of Encounter: 10:20 - Assessment and plan (1) Acute encephalopathy Current Visit: No Status: Acute Assessment and plan: Acute encephalopathy, likely metabolic - secondary to UTI - slowly improving Continue IV Rocephin Patient is refusing to take any of his meds. He is also refusing to eat. 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 Continue close monitoring, aspiration precautions, anticipate discharge to [facility] (2) UTI (urinary tract infection) Current Visit: Yes Status: Acute Assessment and plan: UTI present on admission - cultures positive for pansensitive Citrobacter Continue IV Rocephin Discharge with Levaquin Qualifiers: Urinary tract infection type: acute cystitis Hematuria presence: without hematuria Qualified Code(s): N30.00 - Acute cystitis without hematuria (3) COPD (chronic obstructive pulmonary disease) Current Visit: No Status: Chronic Assessment and plan: Stable, not in exacerbation - continue albuterol and Spiriva Qualifiers: COPD type: chronic bronchitis Chronic bronchitis type: simple Qualified Code(s): J41.0 - Simple chronic bronchitis (4) Nicotine dependence Current Visit: No Status: Chronic Assessment and plan: on Nicotine patch, on counseling about cessation Qualifiers: Nicotine product type: cigarettes Substance use status: unspecified nicotine-induced disorder Qualified Code(s): F17.219 - Nicotine dependence, cigarettes, with unspecified nicotine-induced disorders (5) Seizure disorder Current Visit: No Status: Chronic Assessment and plan: no acute seizure activity Continue Depakote Since he passed swallow eval, resumed all his home PO meds con close monitoring cont seizure precautions (6) Parkinsons disease Current Visit: No Status: Chronic Assessment and plan: Continue Sinemet and Cogentin (7) Physical deconditioning Current Visit: Yes Status: Acute Assessment and plan: PT and OT evaluation, anticipating discharge to [facility] (8) DVT prophylaxis Current Visit: No Status: Acute Assessment and plan: Continue Lovenox subcutaneous - Time Spent With Patient 25 - 35 minutes - Subjective Interval history: Examined this morning. Patient is awake and alert. Not in any distress. He is only oriented to place and person. He seems to be more responsive today. Psychiatry has recommended inpatient [facility]. He he still refuses to take his meds and also has a poor appetite. Patient seems to have intermittent confusion. His baseline mental status is unclear. No fever. Hemodynamically stable. No other acute events or complaints. - Constitutional Vitals: Temp Pulse Resp BP Pulse Ox 98.1 F 97 16 140/97 94 07/05/17 14:49 07/05/17 14:49 07/05/17 14:49 07/05/17 14:49 07/05/17 14:49 General appearance: Present: A&O X 2, pleasant, no acute distress, answers questions appropriately Exam: Generalized weakness, chronically ill-appearing - Head Head exam: Present: atraumatic - Eye Eye exam: Present: EOMI - ENT ENT exam: Present: mucous membranes dry - Respiratory Respiratory exam: Present: CTAB. Absent: rales, rhonchi, wheezes, tachypnea - Cardiovascular Cardiovascular exam: Present: RRR, +S1, +S2 - GI/Abdominal GI/Abdominal exam: Present: soft. Absent: distended, firm, guarding, tenderness - Extremities Exam Extremities exam: Present: radial pulses palpable and symmetrical. Absent: cyanotic, pedal edema - Neurological Exam Additional comments: Patient is awake and alert, oriented to place and person. Seems to have intermittent confusion. Patient probably has underlying dementia. Seems more responsive today. Able to verbalize. Follows verbal commands. He is able to move all extremities. No obvious focal neurological deficits. Internal Medicine: Result - Labs CBC & Chem 7: 07/05/17 06:09 07/05/17 06:09 Labs: Short CBC 07/05/17 Range/Units 06:09 WBC 12.6 H (4.3-11.1) K/mcL Hgb 13.3 (12.9-16.9) g/dL Hct 39.1 (37.5-50.1) % Plt Count 237 (140-400) K/mcL Neutrophils # 8.6 (1.6-8.9) K/mcL BMP 07/05/17 06:09 Sodium 134 L Potassium 3.7 Chloride 101 Carbon Dioxide 22 BUN 13 Creatinine 0.75 Glucose 79 Calcium 9.0 - ABG Interpretation ABG results: PT/INR, D-dimer PT 12.7 Seconds (9.4-12.1) H 06/30/17 17:10 Consult Discharge Plan - Plan Additional Instructions: Patient's mentation does not improve after antibiotic therapy and urinary tract infection clears up would recommend patient be transferred to inpatient geriatric psychiatric unit for further safety and stabilization. Referrals: [facility] [Outside]
[2017-07-05] MEDS: 0.9 % Sodium Chloride 1,000 ML IVC SCH (20:01)
[2017-07-05 23:03] LABS: Valproate Free 9 ug/mL (7-23); Valproate Total 32 ug/mL (50-125)
[2017-07-06] MEDS: *HR* Enoxaparin 40 MG/0.4 ML SYRINGE SQ SCH (06:24)
[2017-07-06 06:42] LABS: Basophils # 0.1 K/mcL (0.0-0.2); Basophils % 1.1 %; Eosinophils # 0.1 K/mcL (0.0-0.6); Eosinophils % 1.1 %; Hematocrit 42.1 % (37.5-50.1); Hemoglobin 13.6 g/dL (12.9-16.9); Immature Granulocytes % 2.1 % (0-4); Lymphocytes # 2.4 K/mcL (0.6-4.6); Mean Corpuscular HGB Conc 32.3 g/dL (31.6-35.5); Mean Corpuscular Hemoglobin 29.6 pg (28.0-33.3); Mean Corpuscular Volume 91.5 fL (83.0-100.0); Mean Platelet Volume 11.4 fL (9.4-12.4); Monocytes # 0.8 K/mcL (0.0-1.3); Monocytes % 6.7 %; Neutrophils # 7.7 K/mcL (1.6-8.9); Platelet Count 256 K/mcL (140-400); Red Cell Distribution Width 14.6 % (11.5-14.5)
[2017-07-06] MEDS: Tiotropium 18 MCG inhalation IH SCH (08:23)
[2017-07-06] MEDS: Carbidopa/Levodopa 25/100 TABLET PO SCH ×3 (08:24→20:41)
[2017-07-06] MEDS: Gabapentin 100 MG CAPSULE PO SCH ×3 (08:25→20:40)
[2017-07-06] MEDS: Divalproex (24 HR) 500 MG TABLET PO SCH ×2 (08:29→20:40)
[2017-07-06] MEDS: 0.9 % Sodium Chloride 1,000 ML IVC SCH ×2 (08:31→23:12)
[2017-07-06] MEDS: Nicotine 21 MG PATCH.TD24 TD SCH (08:32)
--- NOTE | 2017-07-06 13:55 | Internal Med Progress Note ---
Date of Encounter: 07/06/17 Time of Encounter: 09:00 - Assessment and plan (1) Acute encephalopathy Current Visit: No Status: Acute Assessment and plan: Acute encephalopathy, likely metabolic - secondary to UTI - slowly improving Continue IV Rocephin, IV fluids Patient is taking his meds today, continues to have poor appetite 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 Continue close monitoring, aspiration precautions, anticipate discharge to [facility] (2) UTI (urinary tract infection) Current Visit: Yes Status: Acute Assessment and plan: UTI present on admission - cultures positive for pansensitive Citrobacter Continue IV Rocephin, Discharge with Levaquin Qualifiers: Urinary tract infection type: acute cystitis Hematuria presence: without hematuria Qualified Code(s): N30.00 - Acute cystitis without hematuria (3) COPD (chronic obstructive pulmonary disease) Current Visit: No Status: Chronic Assessment and plan: Stable, not in exacerbation - continue albuterol and Spiriva Qualifiers: COPD type: chronic bronchitis Chronic bronchitis type: simple Qualified Code(s): J41.0 - Simple chronic bronchitis (4) Nicotine dependence Current Visit: No Status: Chronic Assessment and plan: on Nicotine patch, counseled about cessation Qualifiers: Nicotine product type: cigarettes Substance use status: unspecified nicotine-induced disorder Qualified Code(s): F17.219 - Nicotine dependence, cigarettes, with unspecified nicotine-induced disorders (5) Seizure disorder Current Visit: No Status: Chronic Assessment and plan: no acute seizure activity - Continue Depakote Since he passed swallow eval, resumed all his home PO meds con close monitoring, cont seizure precautions (6) Parkinsons disease Current Visit: No Status: Chronic Assessment and plan: Continue Sinemet and Cogentin (7) Dementia Current Visit: Yes Status: Chronic Assessment and plan: Probable mild to moderate dementia without behavioral disturbances - possibly due to Parkinson disease or possible Alzheimer's Consider Aricept Qualifiers: Dementia type: unspecified type Dementia behavioral disturbance: without behavioral disturbance Qualified Code(s): F03.90 - Unspecified dementia without behavioral disturbance (8) Physical deconditioning Current Visit: Yes Status: Acute Assessment and plan: PT and OT evaluation, anticipating discharge to [facility] (9) DVT prophylaxis Current Visit: No Status: Acute Assessment and plan: Continue Lovenox subcutaneous - Time Spent With Patient 25 - 35 minutes - Subjective Interval history: Examined this morning. Patient is awake and alert. Not in any distress. He is only oriented to place and person. Seems ore responsive today. Psychiatry has recommended inpatient [facility]. Awaiting placement. Medically stable. Patient has a poor appetite, but is taking his meds today. His baseline mental status is unclear. No fever. Hemodynamically stable. No other acute events or complaints. - Constitutional Vitals: Temp Pulse Resp BP Pulse Ox 98.7 F 72 16 143/86 94 07/06/17 10:38 07/06/17 10:38 07/06/17 10:38 07/06/17 10:38 07/06/17 10:38 General appearance: Present: A&O X 2, pleasant, no acute distress, answers questions appropriately - Head Head exam: Present: atraumatic - Eye Eye exam: Present: EOMI - ENT ENT exam: Present: mucous membranes moist - Respiratory Respiratory exam: Present: CTAB. Absent: rales, rhonchi, wheezes, tachypnea - Cardiovascular Cardiovascular exam: Present: RRR, +S1, +S2 - GI/Abdominal GI/Abdominal exam: Present: soft. Absent: distended, firm, guarding, tenderness - Extremities Exam Extremities exam: Present: radial pulses palpable and symmetrical. Absent: cyanotic, pedal edema - Neurological Exam Additional comments: Patient is awake and alert, oriented to place and person. Patient probably has underlying dementia. More responsive today. Able to verbalize. Follows verbal commands. He is able to move all extremities. Strength seems to be 5/5 in all extremities, patient does have limited ROM at left shoulder. No obvious focal neurological deficits. Internal Medicine: Result - Labs CBC & Chem 7: 07/06/17 05:48 07/05/17 06:09 Labs: Short CBC 07/06/17 Range/Units 05:48 WBC 11.3 H (4.3-11.1) K/mcL Hgb 13.6 (12.9-16.9) g/dL Hct 42.1 (37.5-50.1) % Plt Count 256 (140-400) K/mcL Neutrophils # 7.7 (1.6-8.9) K/mcL - ABG Interpretation ABG results: PT/INR, D-dimer PT 12.7 Seconds (9.4-12.1) H 06/30/17 17:10 Consult Discharge Plan - Plan Additional Instructions: Patient's mentation does not improve after antibiotic therapy and urinary tract infection clears up would recommend patient be transferred to inpatient geriatric psychiatric unit for further safety and stabilization. Referrals: [facility] [Outside]
[2017-07-06 14:55] LABS: Valproate % Free 29 % (5-18)
[2017-07-07] MEDS: *HR* Enoxaparin 40 MG/0.4 ML SYRINGE SQ SCH (06:16)
[2017-07-07] MEDS: Tiotropium 18 MCG inhalation IH SCH (08:00)
[2017-07-07] MEDS: Carbidopa/Levodopa 25/100 TABLET PO SCH ×3 (08:53→21:00)
[2017-07-07] MEDS: Nicotine 21 MG PATCH.TD24 TD SCH (08:53)
[2017-07-07] MEDS: Divalproex (24 HR) 500 MG TABLET PO SCH ×2 (08:53→21:00)
[2017-07-07] MEDS: Gabapentin 100 MG CAPSULE PO SCH ×3 (08:53→21:00)
[2017-07-07] MEDS: 0.9 % Sodium Chloride 1,000 ML IVC SCH (10:20)
--- NOTE | 2017-07-07 17:35 | Internal Med Progress Note ---
Date of Encounter: 07/07/17 Time of Encounter: 09:10 - Assessment and plan (1) Acute encephalopathy Current Visit: No Status: Acute Assessment and plan: Acute encephalopathy, likely metabolic - secondary to UTI - improved Continue IV fluids, IV antibiotic treatment complete Patient is taking his meds today, appetite is better 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 Continue close monitoring, aspiration precautions Awaiting discharge to [facility] psych (2) UTI (urinary tract infection) Current Visit: Yes Status: Acute Assessment and plan: UTI present on admission - cultures positive for pansensitive Citrobacter Antibiotic treatment complete Qualifiers: Urinary tract infection type: acute cystitis Hematuria presence: without hematuria Qualified Code(s): N30.00 - Acute cystitis without hematuria (3) COPD (chronic obstructive pulmonary disease) Current Visit: No Status: Chronic Assessment and plan: Stable, not in exacerbation - continue albuterol and Spiriva Qualifiers: COPD type: chronic bronchitis Chronic bronchitis type: simple Qualified Code(s): J41.0 - Simple chronic bronchitis (4) Nicotine dependence Current Visit: No Status: Chronic Assessment and plan: on Nicotine patch, counseled about cessation Qualifiers: Nicotine product type: cigarettes Substance use status: unspecified nicotine-induced disorder Qualified Code(s): F17.219 - Nicotine dependence, cigarettes, with unspecified nicotine-induced disorders (5) Seizure disorder Current Visit: No Status: Chronic Assessment and plan: no acute seizure activity - Continue Depakote Since he passed swallow eval, resumed all his home PO meds con close monitoring, cont seizure precautions (6) Parkinsons disease Current Visit: No Status: Chronic Assessment and plan: Continue Sinemet and Cogentin (7) Dementia Current Visit: Yes Status: Chronic Assessment and plan: Probable mild to moderate dementia without behavioral disturbances - possibly due to Parkinson disease or possible Alzheimer's Consider Aricept on discharge Qualifiers: Dementia type: unspecified type Dementia behavioral disturbance: without behavioral disturbance Qualified Code(s): F03.90 - Unspecified dementia without behavioral disturbance (8) Physical deconditioning Current Visit: Yes Status: Acute Assessment and plan: PT and OT evaluation anticipating discharge to [facility] (9) DVT prophylaxis Current Visit: No Status: Acute Assessment and plan: Continue Lovenox subcutaneous - Time Spent With Patient 25 - 35 minutes - Subjective Interval history: Examined this morning. Patient is awake and alert. Not in any distress. He is only oriented to place and person. Seems more responsive today. Psychiatry has recommended inpatient [facility]. Awaiting placement. Medically stable. IV antibiotic treatment complete. Patient's appetite is better, and he is taking his meds today. His baseline mental status is unclear. No fever. Hemodynamically stable. No other acute events or complaints. - Constitutional Vitals: Temp Pulse Resp BP Pulse Ox 97.6 F 66 16 94/58 93 07/07/17 16:30 07/07/17 16:30 07/07/17 16:30 07/07/17 16:30 07/07/17 16:30 General appearance: Present: A&O X 2, pleasant, no acute distress, answers questions appropriately - Head Head exam: Present: atraumatic - Eye Eye exam: Present: EOMI - ENT ENT exam: Present: mucous membranes moist - Respiratory Respiratory exam: Present: CTAB. Absent: rales, rhonchi, wheezes, tachypnea - Cardiovascular Cardiovascular exam: Present: RRR, +S1, +S2 - GI/Abdominal GI/Abdominal exam: Present: soft. Absent: distended, firm, guarding, tenderness - Extremities Exam Extremities exam: Present: radial pulses palpable and symmetrical. Absent: cyanotic, pedal edema - Neurological Exam Additional comments: Patient is awake and alert, oriented to place and person. Patient probably has underlying dementia. More responsive today. Able to verbalize. Follows verbal commands. He is able to move all extremities. Strength seems to be 5/5 in all extremities, patient does have limited ROM at left shoulder. No obvious focal neurological deficits. Internal Medicine: Result - Labs CBC & Chem 7: 07/06/17 05:48 07/05/17 06:09 - ABG Interpretation ABG results: PT/INR, D-dimer PT 12.7 Seconds (9.4-12.1) H 06/30/17 17:10 Consult Discharge Plan - Plan Additional Instructions: Patient's mentation does not improve after antibiotic therapy and urinary tract infection clears up would recommend patient be transferred to inpatient geriatric psychiatric unit for further safety and stabilization. Referrals: [facility] [Outside]
[2017-07-07 18:39] LABS: Bilirubin,Urine Small (Negative); Blood,Urine Negative (Negative); Clarity,Urine Clear (Clear); Color,Urine Dark Yellow (Yellow); Glucose,Urine (UA) Normal (Normal); Ketones,Urine Trace mg/dL (Negative); Leukocyte Esterase,Urine Negative (Negative); Nitrite,Urine Negative (Negative); Protein,Urine Negative (Neg-Trace); Specific Gravity,Urine 1.029 (1.010-1.025); Urobilinogen,Urine Normal (Normal)
[2017-07-08] MEDS: 0.9 % Sodium Chloride 1,000 ML IVC SCH ×2 (01:01→13:11)
[2017-07-08] MEDS: *HR* Enoxaparin 40 MG/0.4 ML SYRINGE SQ SCH (06:01)
[2017-07-08] MEDS: Tiotropium 18 MCG inhalation IH SCH (08:19)
[2017-07-08] MEDS: Divalproex (24 HR) 500 MG TABLET PO SCH ×2 (09:16→21:05)
[2017-07-08] MEDS: Gabapentin 100 MG CAPSULE PO SCH ×3 (09:16→21:06)
[2017-07-08] MEDS: Carbidopa/Levodopa 25/100 TABLET PO SCH ×3 (09:16→21:05)
[2017-07-08] MEDS: Nicotine 21 MG PATCH.TD24 TD SCH (09:20)
--- NOTE | 2017-07-08 18:14 | Internal Med Progress Note ---
Date of Encounter: 07/08/17 Time of Encounter: 10:55 - Assessment and plan (1) Acute encephalopathy Current Visit: No Status: Acute Assessment and plan: Acute encephalopathy, likely metabolic - secondary to UTI - improved Continue IV fluids, IV antibiotic treatment complete Patient is taking his meds today, appetite is better 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 Continue close monitoring, aspiration precautions Awaiting placement at [facility] (2) UTI (urinary tract infection) Current Visit: Yes Status: Acute Assessment and plan: UTI present on admission - cultures positive for pansensitive Citrobacter Antibiotic treatment complete Qualifiers: Urinary tract infection type: acute cystitis Hematuria presence: without hematuria Qualified Code(s): N30.00 - Acute cystitis without hematuria (3) COPD (chronic obstructive pulmonary disease) Current Visit: No Status: Chronic Assessment and plan: Stable, not in exacerbation - continue albuterol and Spiriva Qualifiers: COPD type: chronic bronchitis Chronic bronchitis type: simple Qualified Code(s): J41.0 - Simple chronic bronchitis (4) Nicotine dependence Current Visit: No Status: Chronic Assessment and plan: on Nicotine patch, counseled about cessation Qualifiers: Nicotine product type: cigarettes Substance use status: unspecified nicotine-induced disorder Qualified Code(s): F17.219 - Nicotine dependence, cigarettes, with unspecified nicotine-induced disorders (5) Seizure disorder Current Visit: No Status: Chronic Assessment and plan: no acute seizure activity - Continue Depakote Since he passed swallow eval, resumed all his home PO meds con close monitoring, cont seizure precautions (6) Parkinsons disease Current Visit: No Status: Chronic Assessment and plan: Continue Sinemet and Cogentin (7) Dementia Current Visit: Yes Status: Chronic Assessment and plan: Probable mild to moderate dementia without behavioral disturbances - possibly due to Parkinson disease or possible Alzheimer's Consider Aricept on discharge Qualifiers: Dementia type: unspecified type Dementia behavioral disturbance: without behavioral disturbance Qualified Code(s): F03.90 - Unspecified dementia without behavioral disturbance (8) Physical deconditioning Current Visit: Yes Status: Acute Assessment and plan: PT and OT evaluation - patient is refusing PT/OT anticipating discharge to [facility] (9) DVT prophylaxis Current Visit: No Status: Acute Assessment and plan: Continue Lovenox subcutaneous - Time Spent With Patient 25 - 35 minutes - Subjective Interval history: Examined this morning. Patient is awake and alert. Not in any distress. He is only oriented to place and person. Able to verbalize and follow commands. Psychiatry has recommended inpatient [facility]. Medically stable. IV antibiotic treatment complete. Patient is refusing PT/OT. Patient's appetite is better, and he is taking his meds today. His baseline mental status is unclear. No fever. Hemodynamically stable. No other acute events or complaints. Awaiting [facility] placement. - Constitutional Vitals: Temp Pulse Resp BP Pulse Ox 98.2 F 64 16 112/82 96 07/08/17 15:15 07/08/17 15:15 07/08/17 15:15 07/08/17 15:15 07/08/17 15:15 General appearance: Present: A&O X 2, pleasant, no acute distress, answers questions appropriately - Head Head exam: Present: atraumatic - Eye Eye exam: Present: EOMI - ENT ENT exam: Present: mucous membranes moist - Respiratory Respiratory exam: Present: CTAB. Absent: rales, rhonchi, wheezes, tachypnea - Cardiovascular Cardiovascular exam: Present: RRR, +S1, +S2 - GI/Abdominal GI/Abdominal exam: Present: rigid, soft. Absent: distended, firm, guarding, tenderness - Extremities Exam Extremities exam: Present: radial pulses palpable and symmetrical. Absent: calf tenderness, cyanotic, pedal edema - Neurological Exam Additional comments: Patient is awake and alert, oriented to place and person. Patient probably has underlying dementia. Able to verbalize. Follows verbal commands. He is able to move all extremities. Strength seems to be 5/5 in all extremities, patient does have limited ROM at left shoulder. No obvious focal neurological deficits. Likely at baseline. Internal Medicine: Result - Labs CBC & Chem 7: 07/06/17 05:48 07/05/17 06:09 Labs: Urine 07/07/17 Range/Units 18:30 Urine Color Dark Yellow (Yellow) Urine Clarity Clear (Clear) Urine pH 6.0 (5.0-8.0) pH Units Ur Specific [place] 1.029 H (1.010-1.025) Urine Protein Negative (Neg-Trace) mg/dL Urine Glucose (UA) Normal (Normal) mg/dL - ABG Interpretation ABG results: PT/INR, D-dimer PT 12.7 Seconds (9.4-12.1) H 06/30/17 17:10 Consult Discharge Plan - Plan Additional Instructions: Patient's mentation does not improve after antibiotic therapy and urinary tract infection clears up would recommend patient be transferred to inpatient geriatric psychiatric unit for further safety and stabilization. Referrals: [facility] [Outside]
[2017-07-09] MEDS: 0.9 % Sodium Chloride 1,000 ML IVC SCH ×3 (02:28→21:55)
[2017-07-09] MEDS: *HR* Enoxaparin 40 MG/0.4 ML SYRINGE SQ SCH (06:03)
[2017-07-09] MEDS: Tiotropium 18 MCG inhalation IH SCH (07:36)
[2017-07-09] MEDS: Gabapentin 100 MG CAPSULE PO SCH ×3 (08:42→21:51)
[2017-07-09] MEDS: Nicotine 21 MG PATCH.TD24 TD SCH (08:43)
[2017-07-09] MEDS: Divalproex (24 HR) 500 MG TABLET PO SCH ×2 (08:43→21:51)
[2017-07-09] MEDS: Carbidopa/Levodopa 25/100 TABLET PO SCH ×3 (08:43→21:51)
--- NOTE | 2017-07-09 12:51 | Internal Med Progress Note ---
Date of Encounter: 07/09/17 Time of Encounter: 11:50 - Assessment and plan (1) Acute encephalopathy Current Visit: No Status: Acute Assessment and plan: Acute encephalopathy, likely metabolic - secondary to UTI - improved IV antibiotic treatment complete, ambulate out of bed today Patient is taking his meds today, appetite is better 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 Stable for discharge, Awaiting placement at [facility] (2) UTI (urinary tract infection) Current Visit: Yes Status: Acute Assessment and plan: UTI present on admission - cultures positive for pansensitive Citrobacter Antibiotic treatment complete Qualifiers: Urinary tract infection type: acute cystitis Hematuria presence: without hematuria Qualified Code(s): N30.00 - Acute cystitis without hematuria (3) COPD (chronic obstructive pulmonary disease) Current Visit: No Status: Chronic Assessment and plan: Stable, not in exacerbation - continue Albuterol and Spiriva Qualifiers: COPD type: chronic bronchitis Chronic bronchitis type: simple Qualified Code(s): J41.0 - Simple chronic bronchitis (4) Nicotine dependence Current Visit: No Status: Chronic Assessment and plan: Nicotine patch, counseled about cessation Qualifiers: Nicotine product type: cigarettes Substance use status: unspecified nicotine-induced disorder Qualified Code(s): F17.219 - Nicotine dependence, cigarettes, with unspecified nicotine-induced disorders (5) Seizure disorder Current Visit: No Status: Chronic Assessment and plan: no acute seizure activity - Continue Depakote Continue all home meds, cont seizure precautions (6) Parkinsons disease Current Visit: No Status: Chronic Assessment and plan: Stable - Continue Sinemet and Cogentin (7) Dementia Current Visit: Yes Status: Chronic Assessment and plan: Probable mild to moderate dementia without behavioral disturbances - possibly due to Parkinson disease or possible Alzheimer's Consider Aricept on discharge Qualifiers: Dementia type: unspecified type Dementia behavioral disturbance: without behavioral disturbance Qualified Code(s): F03.90 - Unspecified dementia without behavioral disturbance (8) Physical deconditioning Current Visit: Yes Status: Acute Assessment and plan: PT and OT evaluation - patient is refusing PT/OT Anticipate discharge to [facility] (9) DVT prophylaxis Current Visit: No Status: Acute Assessment and plan: Continue Lovenox subcutaneous - Time Spent With Patient 25 - 35 minutes - Subjective Interval history: Examined this morning. Patient is awake and alert. Not in any distress. Able to verbalize and follow commands. Psychiatry has recommended inpatient [facility]. Medically stable. IV antibiotic treatment complete. Patient is refusing PT/OT. Patient states he is ready to be discharged. He is more cooperative with the nursing staff. Plan is to ambulate out of bed today. Patient's appetite is better, and he is taking his meds. He seems to be at baseline mental status. No fever. Hemodynamically stable. No other acute events or complaints. Stable for discharge. Awaiting [facility] placement. - Constitutional Vitals: Temp Pulse Resp BP Pulse Ox 97.5 F L 60 18 116/72 95 07/09/17 11:16 07/09/17 11:16 07/09/17 11:16 07/09/17 11:16 07/09/17 11:16 General appearance: Present: A&O X 2, pleasant, no acute distress, answers questions appropriately - Head Head exam: Present: atraumatic - Eye Eye exam: Present: EOMI - ENT ENT exam: Present: mucous membranes moist - Respiratory Respiratory exam: Present: CTAB. Absent: rales, rhonchi, wheezes, tachypnea - Cardiovascular Cardiovascular exam: Present: RRR, +S1, +S2 - GI/Abdominal GI/Abdominal exam: Present: soft. Absent: distended, firm, guarding, tenderness - Extremities Exam Extremities exam: Present: radial pulses palpable and symmetrical. Absent: calf tenderness, cyanotic, pedal edema - Neurological Exam Neurological exam: Present: alert, no focal deficits. Absent: facial droop, speech deficit Additional comments: Patient is awake and alert, oriented to place and person. Patient probably has underlying dementia. Able to verbalize. Follows verbal commands. He is able to move all extremities. Strength is 5/5 in all extremities, patient does have limited ROM at left shoulder. No obvious focal neurological deficits. Likely at baseline. Internal Medicine: Result - Labs CBC & Chem 7: 07/06/17 05:48 07/05/17 06:09 - ABG Interpretation ABG results: PT/INR, D-dimer PT 12.7 Seconds (9.4-12.1) H 06/30/17 17:10 Consult Discharge Plan - Plan Additional Instructions: Patient's mentation does not improve after antibiotic therapy and urinary tract infection clears up would recommend patient be transferred to inpatient geriatric psychiatric unit for further safety and stabilization. Referrals: [facility] [Outside]
[2017-07-10] MEDS: *HR* Enoxaparin 40 MG/0.4 ML SYRINGE SQ SCH (05:45)
[2017-07-10] MEDS: 0.9 % Sodium Chloride 1,000 ML IVC SCH (05:46)
[2017-07-10] MEDS: Tiotropium 18 MCG inhalation IH SCH (07:54)
[2017-07-10] MEDS: Nicotine 21 MG PATCH.TD24 TD SCH (09:11)
[2017-07-10] MEDS: Gabapentin 100 MG CAPSULE PO SCH ×3 (09:12→19:58)
[2017-07-10] MEDS: Carbidopa/Levodopa 25/100 TABLET PO SCH ×3 (09:12→19:58)
[2017-07-10] MEDS: Divalproex (24 HR) 500 MG TABLET PO SCH ×2 (09:13→19:58)
[2017-07-10] MEDS ORDERED: 0.9 % Sodium Chloride 1,000 ML IVC SCH (10:00)
--- NOTE | 2017-07-10 16:46 | Internal Med Progress Note ---
Date of Encounter: 07/10/17 Time of Encounter: 10:00 - Assessment and plan (1) Acute encephalopathy Current Visit: No Status: Acute Assessment and plan: Acute encephalopathy, likely metabolic - secondary to UTI - improved IV Antibiotic treatment complete, ambulate out of bed today Patient is taking his meds today, appetite is better 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 Stable for discharge, Awaiting placement at [facility] (2) UTI (urinary tract infection) Current Visit: Yes Status: Acute Assessment and plan: UTI present on admission - cultures positive for pansensitive Citrobacter Antibiotic treatment complete Qualifiers: Urinary tract infection type: acute cystitis Hematuria presence: without hematuria Qualified Code(s): N30.00 - Acute cystitis without hematuria (3) COPD (chronic obstructive pulmonary disease) Current Visit: No Status: Chronic Assessment and plan: Stable, not in exacerbation - continue Albuterol and Spiriva Qualifiers: COPD type: chronic bronchitis Chronic bronchitis type: simple Qualified Code(s): J41.0 - Simple chronic bronchitis (4) Nicotine dependence Current Visit: No Status: Chronic Assessment and plan: Nicotine patch, counseled about cessation Qualifiers: Nicotine product type: cigarettes Substance use status: unspecified nicotine-induced disorder Qualified Code(s): F17.219 - Nicotine dependence, cigarettes, with unspecified nicotine-induced disorders (5) Seizure disorder Current Visit: No Status: Chronic Assessment and plan: no acute seizure activity - Continue Depakote Continue all home meds, cont seizure precautions (6) Parkinsons disease Current Visit: No Status: Chronic Assessment and plan: Stable - Continue Sinemet and Cogentin (7) Dementia Current Visit: Yes Status: Chronic Assessment and plan: Probable mild to moderate dementia without behavioral disturbances - possibly due to Parkinson disease or possible Alzheimer's Consider Aricept on discharge Qualifiers: Dementia type: unspecified type Dementia behavioral disturbance: without behavioral disturbance Qualified Code(s): F03.90 - Unspecified dementia without behavioral disturbance (8) Physical deconditioning Current Visit: Yes Status: Acute Assessment and plan: PT and OT evaluation - patient is refusing PT/OT Anticipate discharge to [facility] (9) DVT prophylaxis Current Visit: No Status: Acute Assessment and plan: Continue Lovenox subcutaneous - Time Spent With Patient 25 - 35 minutes - Subjective Interval history: Examined this morning. Patient is awake and alert. Not in any distress. Able to verbalize and follow commands. Psychiatry has recommended inpatient [facility]. Medically stable. IV antibiotic treatment complete. Patient is refusing PT/OT. Patient states he is once to be discharged. He is more cooperative with the nursing staff. Ambulate out of bed today. Patient's appetite is better, and he is taking his meds. He seems to be at baseline mental status. No fever. Hemodynamically stable. No other acute events or complaints. Stable for discharge. Awaiting [facility] placement. - Constitutional Vitals: Temp Pulse Resp BP Pulse Ox 97.6 F 95 15 128/74 95 07/10/17 14:35 07/10/17 14:35 07/10/17 14:35 07/10/17 14:35 07/10/17 14:35 General appearance: Present: A&O X 2, pleasant, no acute distress, answers questions appropriately - Head Head exam: Present: atraumatic - Eye Eye exam: Present: EOMI - ENT ENT exam: Present: mucous membranes moist - Respiratory Respiratory exam: Present: CTAB. Absent: rales, rhonchi, wheezes, tachypnea - Cardiovascular Cardiovascular exam: Present: RRR, +S1, +S2 - GI/Abdominal GI/Abdominal exam: Present: soft. Absent: distended, firm, guarding, tenderness - Extremities Exam Extremities exam: Present: radial pulses palpable and symmetrical. Absent: calf tenderness, cyanotic, pedal edema - Neurological Exam Neurological exam: Present: alert, no focal deficits. Absent: facial droop, speech deficit Additional comments: Patient is awake and alert, oriented to place and person. Patient probably has underlying dementia. Able to verbalize. Follows verbal commands. He is able to move all extremities. Strength is 5/5 in all extremities, patient does have limited ROM at left shoulder. No obvious focal neurological deficits. Likely at baseline. Internal Medicine: Result - Labs CBC & Chem 7: 07/06/17 05:48 07/05/17 06:09 - ABG Interpretation ABG results: PT/INR, D-dimer PT 12.7 Seconds (9.4-12.1) H 06/30/17 17:10 Consult Discharge Plan - Plan Additional Instructions: Patient's mentation does not improve after antibiotic therapy and urinary tract infection clears up would recommend patient be transferred to inpatient geriatric psychiatric unit for further safety and stabilization. Referrals: [facility] [Outside]
[2017-07-11] MEDS: *HR* Enoxaparin 40 MG/0.4 ML SYRINGE SQ SCH (06:05)
--- NOTE | 2017-07-11 07:56 | Electrocardiograph Report ---
[place] [id number] Test Date: 2017-07-07 Pat Name: Rl Alejandra Department: 115 Room: 3A11 Gender: M Program Coordinator: [id number] : 1945 Requested By: Stan Fulton Order Number: [id number] Reading MD: Alfredo Chowdhury DO Measurements Intervals [place] Rate: 69 P: 78 WY: 151 QRS: 35 QRSD: 96 T: 67 QT: 384 QTc: 403 Interpretive Statements SINUS RHYTHM Electronically Signed On 07-07-2017 17:09:45 EDT by Alfredo Chowdhury DO
[2017-07-11] MEDS: Tiotropium 18 MCG inhalation IH SCH (07:58)
[2017-07-11] MEDS: Gabapentin 100 MG CAPSULE PO SCH ×3 (08:44→19:56)
[2017-07-11] MEDS: Carbidopa/Levodopa 25/100 TABLET PO SCH ×3 (08:44→19:56)
[2017-07-11] MEDS: Divalproex (24 HR) 500 MG TABLET PO SCH ×2 (08:44→19:56)
[2017-07-11] MEDS: Nicotine 21 MG PATCH.TD24 TD SCH (08:45)
--- NOTE | 2017-07-11 13:46 | Internal Med Progress Note ---
Date of Encounter: 07/11/17 Time of Encounter: 12:45 - Assessment and plan (1) Altered mental status Current Visit: No Status: Acute Assessment and plan: due to acute toxic encephalopathy with UTI Resolved MRI of brain is negative for CVA-- r/o CVA tolerating regular diet well Qualifiers: Altered mental status type: disorientation Qualified Code(s): R41.0 - Disorientation, unspecified (2) UTI (urinary tract infection) Current Visit: Yes Status: Acute Assessment and plan: UTI present on admission - cultures positive for cohn sensitive Citrobacter Finished abx course repeat UA - WNL Qualifiers: Urinary tract infection type: acute cystitis Hematuria presence: without hematuria Qualified Code(s): N30.00 - Acute cystitis without hematuria (3) Acute encephalopathy Current Visit: No Status: Acute Assessment and plan: Acute encephalopathy, likely metabolic / toxic - secondary to UTI - improved IV Antibiotic treatment complete, ambulate out of bed today Patient is taking his meds today, appetite is better Psychiatry consult - recommendations reviewed - 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 (4) Seizure disorder Current Visit: No Status: Chronic Assessment and plan: no acute seizure activity - Continue Depakote Continue all home meds, cont seizure precautions (5) Parkinson disease Current Visit: No Status: Chronic Assessment and plan: Cont home med Sinemet (6) Hypertension Current Visit: No Status: Chronic Assessment and plan: stable Qualifiers: Hypertension type: essential hypertension Qualified Code(s): I10 - Essential (primary) hypertension (7) COPD (chronic obstructive pulmonary disease) Current Visit: No Status: Chronic Assessment and plan: Stable, not in exacerbation - continue Albuterol and Spiriva Qualifiers: COPD type: chronic bronchitis Chronic bronchitis type: simple Qualified Code(s): J41.0 - Simple chronic bronchitis (8) Nicotine dependence Current Visit: No Status: Chronic Assessment and plan: Nicotine patch, counseled about cessation Qualifiers: Nicotine product type: cigarettes Substance use status: unspecified nicotine-induced disorder Qualified Code(s): F17.219 - Nicotine dependence, cigarettes, with unspecified nicotine-induced disorders (9) DVT prophylaxis Current Visit: No Status: Acute Assessment and plan: Continue Lovenox subcutaneous (10) Physical deconditioning Current Visit: Yes Status: Acute Assessment and plan: PT / OT May need short term PT / OT at skilled facility SW and THOMAS working on it - Subjective Interval history: This is a 72 y/o M with known PMH of COPD, Seizure disorder, ?? 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 Pt is alert, awake and oriented to place, person today. Following all the commands. No events overnight. - Constitutional Vitals: Temp Pulse Resp BP Pulse Ox 98.5 F 75 17 123/87 98 07/11/17 10:58 07/11/17 10:58 07/11/17 10:58 07/11/17 10:58 07/11/17 10:58 General appearance: Present: A&O X 3, pleasant, no acute distress, answers questions appropriately - Head Head exam: Present: atraumatic, normal inspection - Respiratory Respiratory exam: Present: decreased breath sounds, wheezes. Absent: rales, respiratory distress, rhonchi - Cardiovascular Cardiovascular exam: Present: RRR, +S1, +S2. Absent: systolic murmur - GI/Abdominal GI/Abdominal exam: Present: normal bowel sounds, soft. Absent: rebound, rigid, tenderness - Extremities Exam Extremities exam: Absent: calf tenderness, pedal edema, tenderness - Neurological Exam Neurological exam: Present: alert, oriented X3 - Psychiatric Psychiatric exam: Present: normal affect, normal mood Internal Medicine: Result - Labs CBC & Chem 7: 07/06/17 05:48 07/05/17 06:09 - ABG Interpretation ABG results: PT/INR, D-dimer PT 12.7 Seconds (9.4-12.1) H 06/30/17 17:10 Consult Discharge Plan - Plan Additional Instructions: Patient's mentation does not improve after antibiotic therapy and urinary tract infection clears up would recommend patient be transferred to inpatient geriatric psychiatric unit for further safety and stabilization. Referrals: [facility] [Outside]
[2017-07-12] MEDS: *HR* Enoxaparin 40 MG/0.4 ML SYRINGE SQ SCH (05:24)
[2017-07-12] MEDS: Tiotropium 18 MCG inhalation IH SCH (08:18)
--- NOTE | 2017-07-12 09:36 | Discharge Summary ---
Date of Encounter: 07/12/17 Time of Encounter: 09:30 - Discharge Diagnosis (1) Altered mental status Priority: Primary Status: Acute Qualifiers: Altered mental status type: disorientation Qualified Code(s): R41.0 - Disorientation, unspecified (2) UTI (urinary tract infection) Priority: Primary Status: Acute Qualifiers: Urinary tract infection type: acute cystitis Hematuria presence: without hematuria Qualified Code(s): N30.00 - Acute cystitis without hematuria (3) Acute encephalopathy Priority: Primary Status: Acute (4) Seizure disorder Priority: Secondary Status: Chronic (5) Parkinson disease Priority: Secondary Status: Chronic (6) Hypertension Priority: Secondary Status: Chronic Qualifiers: Hypertension type: essential hypertension Qualified Code(s): I10 - Essential (primary) hypertension (7) COPD (chronic obstructive pulmonary disease) Priority: Secondary Status: Chronic Qualifiers: COPD type: chronic bronchitis Chronic bronchitis type: simple Qualified Code(s): J41.0 - Simple chronic bronchitis (8) Nicotine dependence Priority: Secondary Status: Chronic Qualifiers: Nicotine product type: cigarettes Substance use status: unspecified nicotine-induced disorder Qualified Code(s): F17.219 - Nicotine dependence, cigarettes, with unspecified nicotine-induced disorders (9) DVT prophylaxis Priority: Secondary Status: Acute (10) Physical deconditioning Priority: Secondary Status: Acute - Discharge Medications Prescriptions: Oxycodone HCl [Oxaydo] 5 mg PO Q6H PRN #15 PRN Reason: Pain Home Medications: Albuterol Sulfate [Proair Hfa] 1 - 2 puff IH Q6H PRN 05/06/17 [History] Benztropine Mesylate 0.5 mg PO QAM 05/06/17 [History] Benztropine Mesylate 1 mg PO HS 05/06/17 [History] Divalproex (24 HR) [Depakote ER (24 HR)] 500 mg PO BID 05/06/17 [History] Levothyroxine [Synthroid] 100 mcg PO DAILY 05/06/17 [History] Tiotropium [Spiriva] 18 mcg IH DAILY 05/06/17 [History] Primidone [Mysoline] 50 mg PO HS 06/04/17 [History] Gabapentin [Neurontin] 200 mg PO TID #18 06/06/17 [Rx] Orphenadrine [Norflex] 100 mg PO BID #7 tablet.er 06/13/17 [Rx] Carbidopa/Levodopa 25/100 [Sinemet 25/100] 1 each PO TID 06/30/17 [History] Lisinopril [Zestril] 10 mg PO DAILY tab 07/12/17 [Rx] Nicotine Patch [Nicoderm] 21 mg TD DAILY 07/12/17 [Rx] Oxycodone HCl [Oxaydo] 5 mg PO Q6H PRN #15 07/12/17 [Rx] Allergies/Adverse Reactions: 3 Allergy/AdvReac Type Severity Reaction Status Date / Time nicotine patches Allergy Rash Uncoded 06/03/17 23:07 Date of admission: 06/30/17 20:19 Primary care physician: PCP NONE Consults: 06/30/17 21:03 Consult to Speech Therapy [CONS] Routine Comment: Evaluate, develop and implement POC Reason for Consult: speech eval Call Completed: No 07/03/17 09:45 Consult to Physical Therapy [CONS] Routine Comment: Evaluate, develop and implement POC Reason for Consult: discharge planning OT [Consult to Occupational Therapy] [CONS] Routine Comment: Evaluate, develop and implement POC Reason for Consult: discharge planning 07/04/17 01:45 Consult to Assistant Elementary Teacher [CONS] Routine Reason for SW Consult: from [facility] 07/04/17 10:37 Consult to Psychiatry [CONS] Routine Consulting Provider: Psychiatry Mita Reason for Consult: depression- new changes in mental status Call Completed: Yes 07/11/17 08:43 Consult to Physical Therapy [CONS] Routine Comment: Evaluate, develop and implement POC Reason for Consult: discharge planning OT [Consult to Occupational Therapy] [CONS] Routine Comment: Evaluate, develop and implement POC Reason for Consult: discharge planning - Patient Status Disposition: Transfer SNF Condition: Good Overall status at discharge: patient is back to baseline - Discharge Instructions Follow Up With: [facility] [Outside] Additional Instructions: Need to f/u with PCP in one week Need to f/u with Psychiatrist in 1-2 weeks - Diet and Activity Activity: as per physical therapy, increase activity as tolerated Diet: low salt diet Hospital course: This is a 72 y/o M with known PMH of COPD, Seizure disorder, ?? 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 Pt was admitted here for acute delirium, which seems to be due to UTI with toxic encephalopathy and metabolic encephalopathy with dehydration. Pt was started on IV hydration and empirical abx with Rocephin. His urine cx started growing cohn sensitive Citrobacter. He finished 7 days of Iv abx course here. He was still confused and lethargic for few days, pt was evaluated by psychiatrist , who recommend to treat his UTI and cont his psych medications Depakote, Benzatropine and Neurontin. He was on Omak at home, but I doubt he was taking any meds at home before he was brought into the hospitl. His lithium was not given here for 2 weeks, Pt does not have any active maniac symptoms now. So I am not going to resume his Omak now, however recommend to f/u with psychiatrist as an out pt to discuss about treatment options. Pt was evaluated by PT / OT who recommend ECF placement for short term PT / OT. So will d/c him to ECF today in stable condition for short term PT / OT. - Time Spent with Patient Total time spent providing and/or coordinating discharge services: - Constitutional Vitals: Temp Pulse Resp BP Pulse Ox 98.5 F 76 16 112/87 98 07/12/17 07:22 07/12/17 07:22 07/12/17 07:22 07/12/17 07:22 07/12/17 07:22 General appearance: Present: A&O X 3, pleasant, no acute distress, answers questions appropriately - Head Head exam: Present: atraumatic, normal inspection - Respiratory Respiratory exam: Present: decreased breath sounds. Absent: rales, respiratory distress, rhonchi, wheezes - Cardiovascular Cardiovascular exam: Present: RRR, +S1, +S2. Absent: diastolic murmur, gallop, rubs, systolic murmur - GI/Abdominal GI/Abdominal exam: Present: normal bowel sounds, soft, no peritoneal signs. Absent: distended, tenderness - Extremities Exam Extremities exam: Absent: calf tenderness, pedal edema, tenderness - Neurological Exam Neurological exam: Present: alert - Psychiatric Psychiatric exam: Present: normal affect, normal mood. Absent: homicidal ideation, manic, suicidal ideation
--- NOTE | 2017-07-12 09:39 | Physician Discharge Referral ---
ExtendedCare Referral Info Transfer To: ECF Provider in Charge after Transfer: PCP Institutional Level of Care: Skilled - Diagnosis (1) Altered mental status Status: Acute (2) UTI (urinary tract infection) Status: Acute (3) Acute encephalopathy Status: Acute (4) Seizure disorder Status: Chronic (5) Parkinson disease Status: Chronic (6) Hypertension Status: Chronic (7) COPD (chronic obstructive pulmonary disease) Status: Chronic (8) Nicotine dependence Status: Chronic (9) DVT prophylaxis Status: Acute (10) Physical deconditioning Status: Acute - Transfer Medications Prescriptions: Oxycodone HCl [Oxaydo] 5 mg PO Q6H PRN #15 PRN Reason: Pain Home Medications: Albuterol Sulfate [Proair Hfa] 1 - 2 puff IH Q6H PRN 05/06/17 [History] Benztropine Mesylate 0.5 mg PO QAM 05/06/17 [History] Benztropine Mesylate 1 mg PO HS 05/06/17 [History] Divalproex (24 HR) [Depakote ER (24 HR)] 500 mg PO BID 05/06/17 [History] Levothyroxine [Synthroid] 100 mcg PO DAILY 05/06/17 [History] Tiotropium [Spiriva] 18 mcg IH DAILY 05/06/17 [History] Primidone [Mysoline] 50 mg PO HS 06/04/17 [History] Gabapentin [Neurontin] 200 mg PO TID #18 06/06/17 [Rx] Orphenadrine [Norflex] 100 mg PO BID #7 tablet.er 06/13/17 [Rx] Carbidopa/Levodopa 25/100 [Sinemet 25/100] 1 each PO TID 06/30/17 [History] Lisinopril [Zestril] 10 mg PO DAILY tab 07/12/17 [Rx] Nicotine Patch [Nicoderm] 21 mg TD DAILY 07/12/17 [Rx] Oxycodone HCl [Oxaydo] 5 mg PO Q6H PRN #15 07/12/17 [Rx] Allergies/Adverse Reactions: 3 Allergy/AdvReac Type Severity Reaction Status Date / Time nicotine patches Allergy Rash Uncoded 06/03/17 23:07 - Respiratory Orders Smoking Cessation: Smoking cessation has been advised. For more information, call the [employer] Tobacco Quit Line at 1-349-GMYJ-NOW. CERTIFICATION: I certify that the transfer of the above named patient to an Extended Care Facility is necessary for the continuing treatment of the diagnosis listed. The above information is true and accurate reflection of patient's current condition. Confidential - Redisclosure prohibited without a patient's written consent.
[2017-07-12] MEDS: Divalproex (24 HR) 500 MG TABLET PO SCH (10:15)
[2017-07-12] MEDS: Nicotine 21 MG PATCH.TD24 TD SCH (10:15)
[2017-07-12] MEDS: Carbidopa/Levodopa 25/100 TABLET PO SCH (10:15)
[2017-07-12] MEDS: Gabapentin 100 MG CAPSULE PO SCH (10:15)
[2017-07-12 11:14] VITALS: BP 132/75
== END 2017-07-12 15:05 | DRG 689 ==
LOC: 3ANU 16:47 → EMEROO 16:47 → 3ANU 19:26 → SUATTDRO 20:19
PROVIDERS: ADMIT Nurse Practitioner Family; ATTEND Family Medicine